=== PATIENT | female | born 1945 | race Caucasian/White ===

== ENCOUNTER → 2018-03-25 15:34 | Outpatient (CLI) | payer MEDICARE, OTHER, SELFPAY ==
--- NOTE | 2018-03-25 15:38 | VDLE_ITS ---
Reason For Study: Leg Pain RIGHT LEFT CFV is compressible, spontaneous, phasic, GSV is normal. competent and demonstrates normal CFV is compressible, spontaneous, phasic, augmentation. competent, and demonstrates normal Procedure augmentation. Exam performed in department. FV is compressible, spontaneous, phasic, Pt sent to ED per Dr. Fierro. competent and demonstrates normal A preliminary report was called and/or faxed augmentation. to Dr. Vadim Peters. POP V is compressible, spontaneous, phasic, competent and demonstrates normal augmentation. T/P Trunk is compressible. PTV is compressible. LT PerV is compressible. Lt GastrocV is dilated and partially compressible consistent with acute DVT Lt GSV in the calf is dilated and non compressible Lt Varicosities in the calf are dilated and non compressible Lt GSV is compressible in the thigh. Interpretation Summary Acute deep venous thrombosis left gastrocnemius vein. Superficial thrombophlebitis left calf great saphenous vein. Superficial thrombophlebitis left calf varicosities Normal flow patterns right common femoral vein. Ordering Physician: Emmett Fierro Referring Physician: Emmett Fierro Performed By: Angy Painter, SOREN, RVT
== END ==
PROVIDERS: Family Provider Family Medicine; PCP Family Medicine; Visit Provider Family Medicine
DX: M79.605 Pain in left leg (principal); I82.4Z2 Acute embolism and thrombosis of unspecified deep veins of left distal lower extremity
CPT/HCPCS: 93971

== ENCOUNTER 2018-03-25 16:21 | Emergency (ER) | payer MEDICARE, OTHER, SELFPAY ==
[2018-03-25 16:22] VITALS: BP 180/85; PULSE 80; RESP 16; TEMP 36.8; O2SAT 96; BMI 24.4
--- NOTE | 2018-03-25 16:47 | ED.VISSUMM ---
- ER Visit Summary Date of Service: 03/25/18 Chief Complaint: DVT left leg History of Present Illness: The patient is a 72 F who presents with DVT in her left lower leg that was noticed today. Patient states she woke up with pain in her left leg earlier this morning. Patient had an outpatient venous duplex which showed a DVT in the left gastric vein. The left greater saphenous vein is also dilated noncompressible. There is no DVT noted proximal to the gastroc vein. Patient denies any chest pain or shortness of breath. Patient denies any fevers or chills. Patient states her pain is worse with palpation. Physical Examination: Vital signs are stable except for mild hypertension of 180/85. Patient is afebrile. Patient is in no acute distress. There is tenderness over the calf on the left. There is also some mild erythema and tenderness over the medial aspect of the left leg. Pedal pulses are equal bilaterally. Heart was regular rate and rhythm. Lungs are clear and equal bilaterally. There is good respiratory effort noted. Cranial nerves II through XII are intact. There are no focal motor or sensory deficits noted. The remaining physical exam is within normal limits. Test Results: Outpatient venous duplex shows DVT in the left gastroc vein. Emergency Department Course and Treatment: Case was discussed with the patient's primary care physician, Dr. Fierro. He recommended anticoagulantion and he will follow-up with the patient on Wednesday. Patient was started on Xarelto. Patient understood and was agreeable with the plan. All questions were answered. Disposition: Discharge home Impression: DVT left gastroc vein This note was generated with Inmoo dictation software. It may contain incorrect words, spelling, and punctuation that were not noted in review of the chart prior to signing ED Disposition - Plan for ED Patient: Disposition: Home or Assisted Living Chief Complaint: Lower Extremity Injury Diagnosis: Deep vein thrombosis (DVT) of distal vein of left lower extremity Instructions: ED DVT Prescriptions: Rivaroxaban [Xarelto] 1 ea PO UD #1 [email or web address] Referrals: Emmett Fierro MD [Primary Care Provider] -
--- NOTE | 2018-03-25 16:50 | ED.DCSUM_ITS ---
- ER Visit Summary Date of Service: 03/25/18 Chief Complaint: DVT left leg History of Present Illness: The patient is a 72 F who presents with DVT in her left lower leg that was noticed today. Patient states she woke up with pain in her left leg earlier this morning. Patient had an outpatient venous duplex which showed a DVT in the left gastric vein. The left greater saphenous vein is also dilated noncompressible. There is no DVT noted proximal to the gastroc vein. Patient denies any chest pain or shortness of breath. Patient denies any fevers or chills. Patient states her pain is worse with palpation. Physical Examination: Vital signs are stable except for mild hypertension of 180 /85. Patient is afebrile. Patient is in no acute distress. There is tenderness over the calf on the left. There is also some mild erythema and tenderness over the medial aspect of the left leg. Pedal pulses are equal bilaterally. Heart was regular rate and rhythm. Lungs are clear and equal bilaterally. There is good respiratory effort noted. Cranial nerves II through XII are intact. There are no focal motor or sensory deficits noted. The remaining physical exam is within normal limits. Test Results: Outpatient venous duplex shows DVT in the left gastroc vein. Emergency Department Course and Treatment: Case was discussed with the patient' s primary care physician, Dr. Fierro. He recommended anticoagulantion and he will follow-up with the patient on Wednesday. Patient was started on Xarelto. Patient understood and was agreeable with the plan. All questions were answered. Disposition: Discharge home Impression: DVT left gastroc vein This note was generated with Anulex dictation software. It may contain incorrect words, spelling, and punctuation that were not noted in review of the chart prior to signing ED Disposition - Plan for ED Patient: Disposition: Home or Assisted Living Chief Complaint: Lower Extremity Injury Diagnosis: Deep vein thrombosis (DVT) of distal vein of left lower extremity Instructions: ED DVT Prescriptions: Rivaroxaban [Xarelto] 1 ea PO UD #1 [email or web address] Referrals: Emmett Fierro MD [Primary Care Provider] -
--- NOTE | 2018-03-25 17:10 | ED.RN ---
PT GIVEN WRITTEN INSTRUCTIONS AND HOME GOING PRESCRIPTIONS. PT VERBALIZES UNDERSTANDING. PT AMBULATORY HOME BY SELF. TO FOLLOW UP WITH DR. MONCADA.
== END 2018-03-25 18:17 | disposition home or self-care (01) ==
PROVIDERS: Emergency Provider Emergency Medicine; Family Provider Family Medicine; PCP Family Medicine
DX: I82.492 Acute embolism and thrombosis of other specified deep vein of left lower extremity (principal); I10 Essential (primary) hypertension; Z79.01 Long term (current) use of anticoagulants; Z79.899 Other long term (current) drug therapy; Z87.891 Personal history of nicotine dependence
CPT/HCPCS: 93971; 99282

== ENCOUNTER 2019-08-03 15:11 | Emergency (ER) | payer MEDICARE, OTHER, SELFPAY ==
[2019-08-03 15:12] VITALS: BP 159/107; PULSE 88; RESP 16; TEMP 36.2; O2SAT 94; BMI 22.1
[2019-08-03] MEDS: 0.9% Normal Saline 1,000 ML 1000 ML IV (15:37)
[2019-08-03] MEDS: Ondansetron 4 MG/2 ML Vial IV (15:38)
--- NOTE | 2019-08-03 15:42 | ED.DCSUM_ITS ---
History of Present Illness Chief Complaint: Nausea/Vomiting Informant: Patient Onset: Today Context: Gradual Onset Timing: Intermittent Current Severity: Moderate Maximum Severity: Moderate Narrative: The patient presents to the emergency department nausea and vomiting. Patient has a history of polymyalgia and MGUS. She has been on a prednisone course for over a year. She is currently on a taper. She also has started methotrexate just over a month ago. The patient had influenza and pneumococcal vaccine yesterday. She states she began to have some chills and was just feeling unwell. She began to get nauseated and had a few bouts of vomiting. She does not think she had a fever. She denies any urinary symptoms. She is moving her bowels without issue. She is had no abdominal pain. She is otherwise been in her normal state of health. Prior similar symptoms: No Recent Illness/Hospitalization: No Past Medical History - Allergies and Home Meds Allergies/Adverse Reactions: Allergies Penicillins Allergy (Verified 08/03/19 15:12) Swelling Primary Care Physician: Emmett Fierro MD [Primary Care Provider] - Prior records reviewed: Yes Past Medical History: - Surgical History: hysterectomy Lives: With Family Smoking Status: Former smoker Review of Systems General: Reports: Chills, Malaise Eyes: Denies: Visual changes - bilaterally, Diplopia ENT: Denies: Rhinorrhea, Sore throat Cardiovascular: Denies: Chest pain, Palpitations Respiratory: Denies: Dyspnea, Cough, Dyspnea on exertion Gastrointestinal: Reports: Nausea, Vomiting Genitourinary: Denies: Dysuria, Hematuria, Frequency Musculoskeletal: Denies: Back pain, Extremity Pain Skin: Denies: Rash, Wounds Neurological: Denies: Headache, Weakness, Numbness Physical Exam Vital Signs/Narrative: Vital Signs Temp Pulse Resp BP Pulse Ox 08/03/19 15:12 97.1 F L 88 16 159/107 H 94 Inital Vital Signs reviewed: Yes General: Well nourished, Well developed, No Acute Distress Head: Normocephalic, Atraumatic Eyes: Perrl, EOMI ENT: Moist mucous membranes, No rhinorrhea Neck: Supple, Nontender Cardiovascular: Regular rate, Regular rhythm, No murmurs Respiratory: No distress, CTA bilaterally, Chest nontender Abdomen: Soft, Nontender, Nondistended, Normal bowel sounds Back: Nontender, Normal Inspection Extremities: Nontender, No edema Skin: Normal color, No rash Neurological: Alert, Oriented x3, Cranial nerves II-XII grossly intact, Normal Strength, Normal Sensation Psychological: Normal affect, Normal Mood Diagnostic/Tx/Re-eval Abnormal Lab Results 08/03/19 08/03/19 08/03/19 15:20 15:30 15:30 WBC 9.2 RBC 4.63 Hgb 14.1 Hct 43.5 MCV 94.0 MCH 30.5 MCHC 32.4 RDW Std Deviation 50.0 H RDW Coeff of Vahid 14.6 Plt Count 294 MPV 9.4 Immature Gran % (Auto) 0.500 Neut % (Auto) 78.5 H Lymph % (Auto) 12.9 L Blair % (Auto) 6.9 Eos % (Auto) 0.9 Baso % (Auto) 0.3 Absolute Neuts (auto) 7.2 Absolute Lymphs (auto) 1.18 Nucleated RBC % 0 PT 22.0 H INR 1.9 Sodium Potassium Chloride Carbon Dioxide Anion Gap BUN Creatinine Estim Creat Clear Calc Est GFR (MDRD) Af Amer Est GFR (MDRD) Non-Af BUN/Creatinine Ratio Glucose Calcium Total Bilirubin AST ALT Alkaline Phosphatase Total Protein Albumin Globulin Albumin/Globulin Ratio Urine Color Yellow Urine Clarity Clear Urine pH 7.0 Ur Specific [place] 1.010 Urine Protein 15 H Urine Glucose (UA) Normal Urine Ketones 5 H Urine Occult Blood 25 H Urine Nitrite Negative Urine Bilirubin Negative Urine Urobilinogen Normal Ur Leukocyte Esterase Negative Urine RBC 0-5 SEEN Urine WBC 0 SEEN Ur Squamous Epith Cells 0-5 SEEN Amorphous Sediment 1+ URATE Urine Bacteria 0 SEEN Urine Mucus 2+ 08/03/19 15:30 WBC RBC Hgb Hct MCV MCH MCHC RDW Std Deviation RDW Coeff of Vahid Plt Count MPV Immature Gran % (Auto) Neut % (Auto) Lymph % (Auto) Blair % (Auto) Eos % (Auto) Baso % (Auto) Absolute Neuts (auto) Absolute Lymphs (auto) Nucleated RBC % PT INR Sodium 138 Potassium 3.9 Chloride 103 Carbon Dioxide 26.0 Anion Gap 9 BUN 12 Creatinine 0.68 Estim Creat Clear Calc 46.20 Est GFR (MDRD) Af Amer 109 Est GFR (MDRD) Non-Af 90 BUN/Creatinine Ratio 17.7 Glucose 119 H Calcium 9.4 Total Bilirubin 0.60 AST 26 ALT 30 Alkaline Phosphatase 79 Total Protein 7.8 Albumin 3.3 Globulin 4.5 H Albumin/Globulin Ratio 0.7 L Urine Color Urine Clarity Urine pH Ur Specific [place] Urine Protein Urine Glucose (UA) Urine Ketones Urine Occult Blood Urine Nitrite Urine Bilirubin Urine Urobilinogen Ur Leukocyte Esterase Urine RBC Urine WBC Ur Squamous Epith Cells Amorphous Sediment Urine Bacteria Urine Mucus - Medical Decision Making Clinically, I do feel that this is likely reaction to the patient's vaccinations. She is afebrile. She is very well-appearing. IV was established. Screening labs were obtained. She is on prednisone, I did want to rule out any electrolyte abnormality. Labs are unremarkable. Urine shows no infection. She had little improvement with Zofran. She was given Phenergan and was feeling markedly improved. Again, her exam is comforting. Her work-up is within normal limits. I do feel the patient is safe for outpatient therapy. She was counseled on concerning symptoms and reasons to return. She will be discharged home. Impression 1. Nausea and vomiting 2. Reaction to vaccination ED Disposition - Plan for ED Patient: Instructions: VOMITING (5y-Adult) Prescriptions: proMETHazine tablet [Phenergan] 12.5 mg PO Q6H PRN PRN #10 tab PRN Reason: Nausea Prescription Printed Referrals: Emmett Fierro MD [Primary Care Provider] -
[2019-08-03 15:43] LABS: Bacteria 0 SEEN /hpf (None Seen); White Blood Cells 0 SEEN /hpf (0-5)
[2019-08-03 15:48] LABS: Absolute Lymphocyte Count 1.18 X10^3/uL (0.83-4.51); Absolute Neutrophil Count 7.2 X10^3/uL (2.0-7.7); Basophil# 0.03 X10^3/uL; Basophil% 0.3 % (0-1); Eosinophil# 0.08 X10^3/uL; Eosinophils% 0.9 % (0-5); Hematocrit 43.5 % (37-47); Hemoglobin 14.1 g/dL (12.0-15.0); Lymphocyte # 1.18 X10^3/ul (4.0); Lymphocyte % 12.9 % (19-41); Mean Corp Hgb Conc 32.4 g/dL (32-36); Mean Corpuscular Hgb 30.5 pg (27.0-32.0); Mean Platelet Vol. 9.4 fl (6.2-12.0); Monocyte# 0.63 X10^3/uL; Monocyte% 6.9 % (0-10); NRBC Flagged by Analyzer 0 % (0-5); Neutrophil % 78.5 % (47-70); Platelet Count 294 K/mm3 (150-450); RBC Distribution Width CV 14.6 % (11.6-14.6); Red Blood Count 4.63 M/mm3 (4.2-5.4); White Blood Count 9.2 K/mm3 (4.4-11.0)
[2019-08-03 15:51] LABS: Color, Urine Yellow (Yellow); Glucose, Dipstick Normal (Normal); Ketone-Dipstick 5 mg/dl (Negative); Leukocyte Esterase-Dipstick Negative /ul (Negative); Nitrite-Dipstick Negative (Negative); Occult Blood-Urine 25 /ul (Negative); Protein-Dipstick 15 mg/dl (Negative); Urine Bilirubin Dipstick Negative (Negative); Urine Clarity Clear (Clear); Urine Urobilinogen Normal (Normal)
[2019-08-03 16:03] LABS: International Normalized Ratio 1.9
[2019-08-03 16:07] LABS: ALB/GLOB Ratio 0.7 RATIO (0.9-2.4); AST(SGOT) 26 U/L (15-37); Alanine Aminotransfer ALT/SGPT 30 U/L (13-56); Albumin, Serum 3.3 g/dL (3.2-5.0); Alkaline Phosphatase 79 U/L (45-117); Anion Gap 9 (5-15); BUN 12 mg/dL (7-18); BUN/Creat Ratio 17.7 RATIO (10-20); Calcium,Total 9.4 mg/dL (8.5-10.1); Chloride 103 mmol/L (98-107); Creatinine, Serum 0.68 mg/dL (0.55-1.02); EST Glomerular Filtration Rate 90 mL/min (>60); Est Glom Filt Rate - Afr Amer 109 mL/min (>60); Globulin 4.5 g/dL (2.2-4.2); Glucose 119 mg/dL (74-106); Potassium 3.9 mmol/L (3.5-5.1); Protein, Total 7.8 g/dL (6.4-8.2); Sodium Level 138 mmol/L (136-145)
[2019-08-03] MEDS: proMETHazine 25 MG/ML Syringe 6.25 MG IV (16:16)
[2019-08-03 16:26] LABS: Amorphous Sediment 1+ URATE; Mucous, Urine 2+ /hpf (<or=2+); Red Blood Cells-Urine 0-5 SEEN /hpf (0-5); Squamous Epithelial Cells - UA 0-5 SEEN /hpf (5-10)
[2019-08-03 16:53] VITALS: BP 163/80; PULSE 83; RESP 16; O2SAT 98
== END 2019-08-03 16:54 | disposition home or self-care (01) ==
LOC: ED 15:44
PROVIDERS: Emergency Provider Emergency Medicine; Family Provider Family Medicine; PCP Family Medicine
DX: T88.1XXA Other complications following immunization, not elsewhere classified, initial encounter (principal); R11.2 Nausea with vomiting, unspecified; M35.3 Polymyalgia rheumatica; D47.2 Monoclonal gammopathy; Z88.0 Allergy status to penicillin; Z79.01 Long term (current) use of anticoagulants; Z79.899 Other long term (current) drug therapy; Z87.891 Personal history of nicotine dependence; Z90.710 Acquired absence of both cervix and uterus
CPT/HCPCS: 80053; 81001; 85025; 85610; 96361; 96374; 96375; 99284; J7030; A4216; J2405

== ENCOUNTER 2022-08-17 17:36 | Emergency (ER) | payer MEDICARE, OTHER, SELFPAY ==
[2022-08-17 17:38] VITALS: BP 184/96; PULSE 94; RESP 18; TEMP 36.3; O2SAT 99; BMI 20.7
--- NOTE | 2022-08-17 20:03 | EDS_ITS ---
HPI HPI - GI History of Present Illness Chief Complaint: GI Bleed Detail of Chief Complaint: Bright red blood per rectum. 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 INR 3.6. Patient denies bleeding gums, hematuria, bruising easily. She states goal is INR of 2.5. She denies orthostatic symptoms. She has no other complaints. There is no history of diverticulosis or lower GI bleed. Prior similar symptoms: Yes Recent Illness/Hospitalization: No PFSH PFSH Home Medications calcium carbonate 600 mg calcium (1,500 mg) tablet (Caltrate 600) 600 mg PO DAILY 10/25/13 [History Last Taken Unknown] cholecalciferol (vitamin D3) 25 mcg (1,000 unit) capsule (Vitamin D3) 1,000 unit PO DAILY 10/25/13 [History Last Taken Unknown] kdufxqkm-bpb-wjlcz acid 0.4 mg-lycopene 300 mcg-lutein 250 mcg tablet (Centrum Silver) 1 ea PO DAILY 10/25/13 [History Last Taken Unknown] magnesium oxide 500 mg capsule 500 mg PO DAILY 09/10/17 [History Last Taken Unknown] folic acid 1 mg tablet 1 mg PO DAILY 08/03/19 [History Last Taken Unknown] methotrexate sodium 2.5 mg tablet 10 mg PO QWEEK 08/03/19 [History Last Taken Unknown] prednisone 5 mg tablet 5 mg PO DAILY 08/03/19 [History Last Taken Unknown] promethazine 25 mg tablet 12.5 mg PO Q6H PRN PRN Nausea #10 tabs 08/03/19 [Rx Last Taken Unknown] warfarin 5 mg tablet 10 mg PO SUTUTHSA 08/03/19 [History Last Taken Unknown] warfarin 7.5 mg tablet 7.5 mg PO MOWEFR 08/03/19 [History Last Taken Unknown] Allergy/AdvReac Type Severity Reaction Status Date / Time Penicillins Allergy Swelling Verified 08/17/22 17:37 Social History (Updated 08/17/22 @ 20:[address] Wesley Garcia MD) household members: none Smoking Status: Never smoker ROS ROS ED Constitutional Constitutional ED: Denies chills, fever(s), subjective, sweats or weight loss Cardiovascular Cardiovascular: Denies chest pain or palpitations Respiratory/Chest Respiratory/Chest: Denies cough, dyspnea or dyspnea on exertion Gastrointestinal Gastrointestinal: Denies abdominal pain, constipation, diarrhea, melena, nausea or vomiting Genitourinary Genitourinary ED: Denies hematuria Hematologic/Lymphatic Hematologic/Lymphatic: Denies easy bleeding, easy bruising or lymphadenopathy EXAM Physical Exam Const Vital Signs: 08/17/22 17:38 Temperature 97.4 F L Temperature Source Temporal Pulse Rate 94 Respiratory Rate 18 Blood Pressure 184/96 H Blood Pressure Mean 125 Pulse Ox 99 Oxygen Delivery Method Room Air Positive well nourished and well developed General Appearance ED: well developed and NAD; Negative for pallor HEENT Reports moist mucous membranes HEENT Narrative: Head is atraumatic normocephalic. Ears normal. Nares patent. Uvula midline. Eyes PERRL and EOMs intact bilaterally General Eye ED: Negative for pale conjunctiva or scleral icterus Neck no lymphadenopathy, supple and no JVD Resp normal respiratory effort and clear to auscultation bilaterally Cardio regular rate, regular rhythm, S1 normal heart sound and S2 normal heart sound GI non-tender, non-distended and no masses GI Narrative: Patient has external hemorrhoids on visualization of the anus. Anoscopy was performed and reveals bleeding from hemorrhoids. Rectal mucosa appears normal. Stool is brown. Extremity full ROM Neuro CN's II-XII intact bilaterally and moves all extremities Sensorium / Orientation: alert Psych mental status grossly normal and thought process normal Skin no wounds General Skin Exam: Negative for jaundice or pallor MDM MDM MDM Narrative Medical decision making narrative: With history of bright red blood we will perform anoscopy determine if this is due to hemorrhoids versus lower GI bleed. Anoscopy reveals hemorrhoidal blee ding. Patient was instructed to hold her next 2 doses of Coumadin. Discharge Plan Triage Chief Complaint: GI Bleed ED Provider: Wesley Garcia Dx/Rx/DC Orders Instructions: Rectal Bleeding Tx Prescriptions: No Action calcium carbonate [Caltrate 600] 600 MG tablet 600 mg PO DAILY cholecalciferol (vitamin D3) [Vitamin D3] 1,000 UNIT capsule 1,000 unit PO DAILY zoatbfyh-iio-CH-lycopen-lutein [Centrum Silver] 1 EACH tablet 1 ea PO DAILY magnesium oxide 500 MG capsule 500 mg PO DAILY warfarin 7.5 MG tablet 7.5 mg PO MOWEFR methotrexate sodium 2.5 tablet 10 mg PO QWEEK warfarin 5 MG tablet 10 mg PO SUTUTHSA prednisone 5 tablet 5 mg PO DAILY folic acid 1 MG tablet 1 mg PO DAILY Label Comments: TAKE 1 TABLET BY MOUTH ONCE DAILY FOR 90 DAYS promethazine 25 MG tablet 12.5 mg PO Q6H PRN PRN (Reason: Nausea) Qty: 10 0RF Primary Care Provider: Emmett Fierro Referrals: Emmett Fierro MD [Primary Care Provider] - 1 Week if not improving Activity Restrictions/Additional Instructions: 1. Hold your next 2 doses of Coumadin 2. Contact your doctor regarding altering the dose since your INR is slightly elevated at 3.6. 3. You may take either Metamucil or MiraLAX 1-2 times a day to help with constipation. 3. If you develop lightheadedness, passing large clots return to the emergency department Disposition Disposition: Home, Self Care
[2022-08-17 20:22] VITALS: PULSE 76; RESP 18; O2SAT 97
== END 2022-08-17 20:23 | disposition home or self-care (01) ==
PROVIDERS: Emergency Provider Emergency Medicine; PCP Family Medicine; Visit Provider Emergency Medicine
DX: K64.4 Residual hemorrhoidal skin tags (principal); Z79.01 Long term (current) use of anticoagulants; Z79.899 Other long term (current) drug therapy; Z86.718 Personal history of other venous thrombosis and embolism; Z87.19 Personal history of other diseases of the digestive system
CPT/HCPCS: 46600; 99283

== ENCOUNTER 2022-11-01 08:53 | Emergency (ER) | payer MEDICARE, OTHER, SELFPAY ==
[2022-11-01 08:56] VITALS: BP 188/95; PULSE 79; RESP 16; TEMP 36.5; O2SAT 98; BMI 21.7
--- NOTE | 2022-11-01 10:09 | EX.ED.DYSGE1 ---
HPI History of Present Illness Chief Complaint: Nausea/Vomiting Informant: patient and spouse/S.O. Narrative Narrative: [id number] female presenting to the emergency room with a chief complaint of nausea and vomiting. Patient states that episodes every 2 years about this time she comes to the emergency room with vomiting. She denies any diarrhea or fever. She states they typically hydrate her and give her something for nausea which helps. She denies any body aches or any other symptoms. PFSH PFSH Home Medications calcium carbonate 600 mg calcium (1,500 mg) tablet (Caltrate 600) 600 mg PO DAILY 10/25/13 [History Last Taken Unknown] cholecalciferol (vitamin D3) 25 mcg (1,000 unit) capsule (Vitamin D3) 1,000 unit PO DAILY 10/25/13 [History Last Taken Unknown] igruukre-mks-gushl acid 0.4 mg-lycopene 300 mcg-lutein 250 mcg tablet (Centrum Silver) 1 ea PO DAILY 10/25/13 [History Last Taken Unknown] magnesium oxide 500 mg capsule 500 mg PO DAILY 09/10/17 [History Last Taken Unknown] folic acid 1 mg tablet 1 mg PO DAILY 08/03/19 [History Last Taken Unknown] methotrexate sodium 2.5 mg tablet 10 mg PO QWEEK 08/03/19 [History Last Taken Unknown] prednisone 5 mg tablet 5 mg PO DAILY 08/03/19 [History Last Taken Unknown] promethazine 25 mg tablet 12.5 mg PO Q6H PRN PRN Nausea #10 tabs 08/03/19 [Rx Last Taken Unknown] warfarin 5 mg tablet 10 mg PO SUTUTHSA 08/03/19 [History Last Taken Unknown] warfarin 7.5 mg tablet 7.5 mg PO MOWEFR 08/03/19 [History Last Taken Unknown] Allergy/AdvReac Type Severity Reaction Status Date / Time Penicillins Allergy Swelling Verified 11/01/22 08:56 Social History household members: none Smoking Status: Never smoker EXAM Physical Exam Const Vital Signs: 11/01/22 08:56 Temperature 97.7 F L Temperature Source Temporal Pulse Rate 79 Respiratory Rate 16 Blood Pressure 188/95 H Blood Pressure Mean 126 Pulse Ox 98 Oxygen Delivery Method Room Air Positive well nourished and well developed General Appearance ED: well developed HEENT Reports normocephalic, head/scalp atraumatic and moist mucous membranes Eyes PERRL and EOMs intact bilaterally Neck no lymphadenopathy, supple and no JVD Resp normal respiratory effort and clear to auscultation bilaterally Cardio regular rate, regular rhythm and no murmurs GI normal to inspection, nondistended, normoactive bowel sounds and non-tender Palpation: soft Back/Spine no CVA tenderness and normal ROM Extremity normal to inspection General Extremety ED: Negative for edema General Extremity: Negative for edema Neuro oriented x3 and CN's II-XII intact bilaterally Sensorium / Orientation: alert Motor Exam: strength 5/5 throughout Psych mental status grossly normal Mood & Affect: Negative for depressed or tearful Skin no rashes or lesions noted and no wounds MDM MDM MDM Narrative Medical decision making narrative: CBC was normal. CMP showed a glucose of 127. CO2 of 27 anion gap of 6 BUN of 12. Creatinine is normal. She received IV fluids and Zofran repeat examination finds the patient to be doing significantly better. She has had a liter of fluids I will write for her to have Zofran at home. Lab Data Attestation: I reviewed the patient's lab results. Labs: Laboratory Results - last 24 hr 11/01/22 11/01/22 09:15 09:15 WBC 8.4 RBC 4.57 Hgb 14.0 Hct 42.4 MCV 92.8 MCH 30.6 MCHC 33.0 RDW Std Deviation 49.0 H RDW Coeff of Vahid 14.4 Plt Count 284 MPV 10.8 Immature Gran % (Auto) 0.500 Neut % (Auto) 81.0 H Lymph % (Auto) 9.5 L [place] % (Auto) 8.3 Eos % (Auto) 0.1 Baso % (Auto) 0.6 Absolute Neuts (auto) 6.8 Absolute Lymphs (auto) 0.80 L Nucleated RBC % 0 Sodium 138 Potassium 3.7 Chloride 105 Carbon Dioxide 27.0 Anion Gap 6 BUN 12 Creatinine 0.63 Estim Creat Clear Calc 43.40 Est GFR (MDRD) Af Amer 117 Est GFR (MDRD) Non-Af 96 BUN/Creatinine Ratio 18.9 Glucose 127 H Calcium 9.6 Total Bilirubin 0.40 AST 26 ALT 26 Alkaline Phosphatase 90 Total Protein 7.9 Albumin 3.6 Globulin 4.3 H Albumin/Globulin Ratio 0.8 L Discharge Plan Triage Chief Complaint: Nausea/Vomiting ED Provider: Tigre Orosco Dx/Rx/DC Orders Prescriptions: No Action calcium carbonate [Caltrate 600] 600 MG tablet 600 mg PO DAILY cholecalciferol (vitamin D3) [Vitamin D3] 1,000 UNIT capsule 1,000 unit PO DAILY zpiscsfr-scz-MB-lycopen-lutein [Centrum Silver] 1 EACH tablet 1 ea PO DAILY magnesium oxide 500 MG capsule 500 mg PO DAILY warfarin 7.5 MG tablet 7.5 mg PO MOWEFR methotrexate sodium 2.5 tablet 10 mg PO QWEEK warfarin 5 MG tablet 10 mg PO SUTUTHSA prednisone 5 tablet 5 mg PO DAILY folic acid 1 MG tablet 1 mg PO DAILY Label Comments: TAKE 1 TABLET BY MOUTH ONCE DAILY FOR 90 DAYS promethazine 25 MG tablet 12.5 mg PO Q6H PRN PRN (Reason: Nausea) Qty: 10 0RF Primary Care Provider: Emmett Fierro Referrals: Emmett Fierro MD [Primary Care Provider] -
[2022-11-01 10:16] LABS: Absolute Neutrophil Count 6.8 X10^3/uL (2.0-7.7); Basophil# 0.05 X10^3/uL; Basophil% 0.6 % (0-1); Eosinophil# 0.01 X10^3/uL; Eosinophils% 0.1 % (0-5); Hematocrit 42.4 % (37-47); Lymphocyte % 9.5 % (19-41); Mean Corpuscular Hgb 30.6 pg (27.0-32.0); Mean Corpuscular Volume 92.8 fL (81-99); Mean Platelet Vol. 10.8 fl (6.2-12.0); Monocyte% 8.3 % (0-10); NRBC Flagged by Analyzer 0 % (0-5); Neutrophil # 6.84 X10^3/uL (2.7-7.7); Platelet Count 284 K/mm3 (150-450); RBC Distribution Width CV 14.4 % (11.6-14.6); Red Blood Count 4.57 M/mm3 (4.2-5.4); White Blood Count 8.4 K/mm3 (4.4-11.0)
[2022-11-01] MEDS: 0.9% Normal Saline 1,000 ML 1000 ML IV (10:17)
[2022-11-01] MEDS: Ondansetron 4 MG/2 ML Vial IV (10:18)
[2022-11-01 10:32] LABS: ALB/GLOB Ratio 0.8 RATIO (0.9-2.4); AST(SGOT) 26 U/L (15-37); Alanine Aminotransfer ALT/SGPT 26 U/L (13-56); Albumin, Serum 3.6 g/dL (3.2-5.0); Alkaline Phosphatase 90 U/L (45-117); Anion Gap 6 (5-15); BUN 12 mg/dL (7-18); BUN/Creat Ratio 18.9 RATIO (10-20); Calcium,Total 9.6 mg/dL (8.5-10.1); Chloride 105 mmol/L (98-107); Creatinine, Serum 0.63 mg/dL (0.55-1.02); EST Glomerular Filtration Rate 96 mL/min (>60); Est Glom Filt Rate - Afr Amer 117 mL/min (>60); Globulin 4.3 g/dL (2.2-4.2); Glucose 127 mg/dL (74-106); Potassium 3.7 mmol/L (3.5-5.1); Protein, Total 7.9 g/dL (6.4-8.2); Sodium Level 138 mmol/L (136-145)
== END 2022-11-01 12:24 | disposition home or self-care (01) ==
PROVIDERS: Emergency Provider Emergency Medicine; PCP Family Medicine; Visit Provider Emergency Medicine
DX: R11.2 Nausea with vomiting, unspecified (principal)
CPT/HCPCS: 80053; 85025; 96360; 99283; J7030; A4216; J2405

== ENCOUNTER 2024-01-22 08:17 | Emergency (ER) | payer MEDICARE, SELFPAY ==
[2024-01-22 08:19] VITALS: BP 195/95; PULSE 101; RESP 16; TEMP 36.3; O2SAT 99; BMI 21.2
--- NOTE | 2024-01-22 08:35 | RAD_ITS ---
STUDY: X-RAY CHEST REASON FOR EXAM: Female, 78 years old. Coronary artery disease. TECHNIQUE: Single frontal view of the chest. COMPARISON: 10/25/2013 FINDINGS: Stable hyperinflation. Scattered healed parenchymal granulomatous calcifications, unaltered. There is no demonstrated pleural abnormality. Cardiomegaly unchanged. Normal mediastinum and todd. Normal visualized pulmonary arteries. Aortic tortuosity with calcification unchanged. Normal visualized thoracic spine. Normal visualized ribs, clavicles, and shoulders. No abnormality of the visualized soft tissue structures of the upper abdomen. RAD/Chest 1 View (Portable) IMPRESSION: Stable chest with no acute superimposed finding. Electronically Signed: Mahamed Tate MD at 9:26 EST ,
--- NOTE | 2024-01-22 08:37 | EKG12_ITS ---
Test Reason : Blood Pressure : / mmHG Vent. Rate : 072 BPM Atrial Rate : 072 BPM P-R Int : 156 ms QRS Dur : 082 ms QT Int : 396 ms P-R-T Axes : 035 071 043 degrees QTc Int : 433 ms Normal sinus rhythm Normal ECG Confirmed by HERNANDEZ CHURCHILL, INDU ([id number]), editorial clerk KIMBERLEY DOMINGUEZ ([id number]) on 01/24/2024 9:46:49 AM Referred By: RODNEY Confirmed By:INDU NG MD
[2024-01-22 08:50] LABS: Absolute Lymphocyte Count 1.63 X10^3/uL (0.83-4.51); Absolute Neutrophil Count 6.8 X10^3/uL (2.0-7.7); Basophil# 0.08 X10^3/uL; Basophil% 0.8 % (0-1); Eosinophil# 0.04 X10^3/uL; Eosinophils% 0.4 % (0-5); Hematocrit 45.2 % (37-47); Hemoglobin 14.5 g/dL (12.0-15.0); Lymphocyte # 1.63 X10^3/ul (0.83-4.51); Lymphocyte % 16.9 % (19-41); Mean Corp Hgb Conc 32.1 g/dL (32-36); Mean Corpuscular Volume 93.4 fL (81-99); Mean Platelet Vol. 9.9 fl (6.2-12.0); Monocyte# 1.09 X10^3/uL; Monocyte% 11.3 % (0-10); NRBC Flagged by Analyzer 0 % (0-5); Neutrophil # 6.77 X10^3/uL (2.7-7.7); Neutrophil % 70.2 % (47-70); Platelet Count 301 K/mm3 (150-450); RBC Distribution Width CV 14.4 % (11.6-14.6); RBC Distribution Width SD 49.9 fl (35.1-43.9); Red Blood Count 4.84 M/mm3 (4.2-5.4); White Blood Count 9.7 K/mm3 (4.4-11.0)
[2024-01-22 08:58] VITALS: BP 157/81; PULSE 77; RESP 19; TEMP 36.3; O2SAT 97
[2024-01-22 09:01] VITALS: BP 147/67
[2024-01-22 09:07] LABS: Mucous, Urine 0 SEEN /hpf (<or=2+); Squamous Epithelial Cells - UA 0 SEEN /hpf (5-10); White Blood Cells 0 SEEN /hpf (0-5)
[2024-01-22 09:09] LABS: Color, Urine Yellow (Yellow); Glucose, Dipstick Normal (Normal); Ketone-Dipstick 5 mg/dl (Negative); Leukocyte Esterase-Dipstick Negative /ul (Negative); Nitrite-Dipstick Negative (Negative); Occult Blood-Urine 50 /ul (Negative); Protein-Dipstick 15 mg/dl (Negative); Urine Bilirubin Dipstick Negative (Negative); Urine Clarity Sl. Cloudy (Clear); Urine Urobilinogen Normal (Normal)
[2024-01-22 09:10] LABS: ALB/GLOB Ratio 0.8 RATIO (0.9-2.4); AST(SGOT) 28 U/L (15-37); Alanine Aminotransfer ALT/SGPT 29 U/L (13-56); Albumin, Serum 3.8 g/dL (3.2-5.0); Alkaline Phosphatase 100 U/L (45-117); Anion Gap 5 (5-15); BUN 19 mg/dL (7-18); BUN/Creat Ratio 19.2 RATIO (10-20); Chloride 103 mmol/L (98-107); Creatinine, Serum 0.99 mg/dL (0.55-1.02); EST Glomerular Filtration Rate 57 mL/min (>60); Est Glom Filt Rate - Afr Amer 69 mL/min (>60); Estimated Creatinine Clearance 43.14 ml/min; Globulin 4.5 g/dL (2.2-4.2); Glucose 203 mg/dL (74-106); Potassium 4.2 mmol/L (3.5-5.1); Protein, Total 8.3 g/dL (6.4-8.2); Sodium Level 136 mmol/L (136-145); Troponin-I HS (w/2H Reflex) 6 pg/mL (3.0-54.0)
[2024-01-22 09:15] LABS: Bacteria 1+ /hpf (None Seen); Red Blood Cells-Urine 0-5 SEEN /hpf (0-5)
--- OUTSIDE RECORDS SUMMARY | 2024-01-22 10:03 | XMS RPT_ITS | CCD ---
Author Name Unknown Address [address] [place] [address] Organization [facility] Care Team Providers Care Car Repair Supervisor Name Role Phone Leilani Ferguson PA-C Primary Care Provider Leilani FERGUSON GERARDO Primary Care Unavailable FERGUSON, M GERARDO Referring Unavailable FERGUSON, M GERARDO Primary Care Unavailable PODLOGARRUSTY Attending Unavailable FERGUSON, M GERARDO Primary Care Unavailable FERGUSON, M GERARDO Primary Care Unavailable FERGUSON, M GERARDO Referring Unavailable FERGUSON, M GERARDO Primary Care Unavailable FERGUSON, M GERARDO Primary Care Unavailable FERGUSON, M GERARDO Primary Care Unavailable FERGUSON, M GERARDO Primary Care Unavailable HAAGEN, MORENA Referring Unavailable FERGUSON, M GERARDO Primary Care Unavailable ISHAGENJIMY Referring Unavailable PODLOGARRUSTY Attending Unavailable FERGUSON, M GERARDO Primary Care Unavailable FERGUSON, M GERARDO Primary Care Unavailable FERGUSON, M GERARDO Primary Care Unavailable FERGUSON, M GERARDO Primary Care Unavailable HAAGEN, MORENA Attending Unavailable FERGUSON, M GERARDO Primary Care Unavailable FERGUSON, M GERARDO Primary Care Unavailable FERGUSON, M GERARDO Primary Care Unavailable SARWAT DEE Referring Unavailable FERGUSON, M GERARDO Primary Care Unavailable FERGUSON, M GERARDO Primary Care Unavailable FERGUSON, M GERARDO Primary Care Unavailable DAMARIS FIERRO Referring Unavailable TIMOTHY PALMER Attending Unavailable FERGUSON, M GERARDO Primary Care Unavailable FERGUSON, M GERARDO Primary Care Unavailable SARWAT DEE Attending Unavailable FERGUSON, M GERARDO Primary Care Unavailable FERGUSON, M GERARDO Primary Care Unavailable FERGUSON, M GERARDO Primary Care Unavailable FERGUSON, M GERARDO Primary Care Unavailable FERGUSON, M GERARDO Primary Care Unavailable FERGUSON, M GERARDO Primary Care Unavailable FERGUSON, M GERARDO Attending Unavailable FERGUSON, M GERARDO Primary Care Unavailable FERGUSON, M GERARDO Primary Care Unavailable HAMORENA VALENTE Referring Unavailable Leilani FERGUSON Primary Care Unavailable Leilani FERGUSON Primary Care Unavailable Leilani FERGUSON Primary Care Unavailable Leilani FERGUSON Primary Care Unavailable Allergies Allergy Classification Reported Allergen(s) Allergy Type Date of Onset Reaction(s) Facility (4 sources) Penicillins; Translations: [PENICILLINS] Drug Allergy 02-09-2008 Itching [facility] (20 sources) Penicillins Drug Allergy 02-09-2008 Itching [facility] Medications Current Medications Medication Drug Class(es) Dates Sig (Normalized) Sig (Original) betamethasone 0.5 mg/ml / clotrimazole 10 mg/ml topical cream (5 sources) Azole Antifungal, Corticosteroid Start: 01-03-2024 End: 01-17-2024 clotrimazole-bet amethasone (LOTRISONE) cream Indications: Skin irritation Apply to affected area two times a day for 14 days. 30 g 0 01/03/2024 01/17/2024 Active Completed/Discontinued Medications Medication Drug Class(es) Dates Sig (Normalized) Sig (Original) alendronic acid 70 mg oral tablet (2 sources) Bisphosphonate End: 03-16-2022 take 70 mg by mouth every week alendronate sodium (FOSAMAX ORAL) Take 70 mg by mouth once each week. 0 03/16/2022 Discontinued Problems Active Problems Problem Classification Problem Date Documented Da te Episodic/Chronic Diabetes mellitus without complication (4 sources) Hyperglycemia; Translations: [Hyperglycemia, unspecified] Onset: 01-03-2024 Episodic Disorders of lipid metabolism (3 sources) Mixed hyperlipidemia; Translations: [Mixed hyperlipidemia] Onset: 01-03-2024 Chronic Essential hypertension (4 sources) Essential hypertension; Translations: [Essential (primary) hypertension] Onset: 01-03-2024 01-03-2024 Chronic Gastrointestinal hemorrhage (1 source) Rectal hemorrhage; Translations: [Hemorrhage of anus and rectum] Episodic Heart valve disorders (4 sources) Nonrheumatic aortic (valve) stenosis; Translations: [Aortic valve disorders] Onset: 01-17-2024 01-13-2024 Chronic Heart valve disorders (2 sources) Heart murmur; Translations: [Cardiac murmur, unspecified] Onset: 01-13-2024 01-03-2024 Episodic Hemorrhoids (2 sources) Thrombosed hemorrhoids; Translations: [Perianal venous thrombosis] Episodic Mycoses (3 sources) Anal candidiasis; Translations: [Other sites of candidiasis] Episodic Neoplasms of unspecified nature or uncertain behavior (20 sources) IgM monoclonal gammopathy of uncertain significance; Translations: [Monoclonal gammopathy] Onset: 07-05-2013 08-18-2021 Chronic Non-Hodgkin`s lymphoma (20 sources) Macroglobulinemia; Translations: [Waldenstrom macroglobulinemia] Onset: 07-09-2008 07-09-2008 Chronic Other aftercare (2 sources) Long-term current use of anticoagulant; Translations: [long term care phlebotomist (current) use of anticoagulants] 06-30-2023 Episodic Other aftercare (2 sources) [facility] (current) use of anticoagulants; Translations: [Chronic anticoagulation] Onset: 07-01-2023 Episodic Other bone disease and musculoskeletal deformities (1 source) Disorder of bone; Translations: [Other specified disorders of bone density and structure, other site] Episodic Other bone disease and musculoskeletal deformities (1 source) Disorder of skeletal system; Translations: [Disorder of bone, unspecified] 06-30-2023 Episodic Other circulatory disease (1 source) Fibromuscular dysplasia of wall of artery; 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] 01-13-2024 Chronic Other circulatory disease (2 sources) Carotid bruit; Translations: [Other specified symptoms and signs involving the circulatory and respiratory systems] 01-03-2024 Episodic Other circulatory disease (1 source) Other specified symptoms and signs involving the circulatory and respiratory systems; Translations: [Bruit of right carotid artery] Onset: 01-07-2024 Episodic Other connective tissue disease (20 sources) Polymyalgia rheumatica; Translations: [Polymyalgia rheumatica] Onset: 08-28-2019 08-28-2019 Chronic Other connective tissue disease (1 source) Polymyalgia rheumatica; Translations: [PMR (polymyalgia rheumatica) ([facility])] Onset: 08-28-2019 Chronic Other female genital disorders (1 source) Pruritus of vagina; Translations: [Other specified noninflammatory disorders of vagina] 10-25-2023 Episodic Other non-traumatic joint disorders (1 source) Polyarthropathy; Translations: [Polyarthritis, unspecified] 06-30-2023 Chronic Other non-traumatic joint disorders (1 source) Polyarthritis, unspecified; Translations: [Polyarthritis] Onset: 07-01-2023 Chronic Other skin disorders (1 source) Eruption; Translations: [Rash and other nonspecific skin eruption] 10-09-2023 Episodic Other skin disorders (1 source) Skin irritation ; Translations: [Other skin changes] 01-03-2024 Episodic Residual codes; unclassified (1 source) H/O: steroid therapy; Translations: [Personal history of systemic steroid therapy] 06-30-2023 Episodic Spondylosis; intervertebral disc disorders; other back problems (1 source) Neck pain; Translations: [Cervicalgia] Episodic Past or Other Problems Problem Classification Problem Date Documented Da te Episodic/Chronic Administrative/social admission (2 sources) Impaired mobility; Translations: [Other reduced mobility] Onset: 07-01-2023 06-30-2023 Episodic Other bone disease and musculoskeletal deformities (20 sources) Senile osteopenia; Translations: [Other specified disorders of bone density and structure, unspecified site] Onset: 09-12-2022 09-12-2022 Episodic Other bone disease and musculoskeletal deformities (1 source) Other specified disorders of bone density and structure, unspecified site; Translations: [Osteopenia, senile] Onset: 09-12-2022 Episodic Other bone disease and musculoskeletal deformities (1 source) Disorder of bone, unspecified; Translations: [Disorder of bone and cartilage] Onset: 07-01-2023 Episodic Other bone disease and musculoskeletal deformities (1 source) Disorder of cartilage, unspecified; Translations: [Disorder of bone and cartilage] Onset: 07-01-2023 Episodic Other screening for suspected conditions (not mental disorders or infectious disease) (5 sources) Patient encounter status; Translations: [Encounter for screening for osteoporosis] Onset: 09-20-2023 Episodic Phlebitis; thrombophlebitis and thromboembolism (20 sources) Deep venous thrombosis; Translations: [Acute embolism and thrombosis of unspecified deep veins of unspecified lower extremity] Onset: 03-28-2018 03-28-2018 Episodic Residual codes; unclassified (20 sources) Postmenopausal state; Translations: [Asymptomatic menopausal state] Onset: 06-19-2008 06-19-2008 Episodic Residual codes; unclassified (20 sources) Family history of cancer of colon; Translations: [Family history of malignant neoplasm of digestive organs] Onset: 09-03-2017 09-03-2017 Episodic Residual codes; unclassified (1 source) Personal history of systemic steroid therapy; Translations: [Hx of steroid therapy] Onset: 07-01-2023 Episodic Results Test Name Value Interpretation Reference Range Facil ity Vital Signs Date Time Vital Sign Value Performing Clinician Janell haas 01-17-2024 10:38-0500 Body weight 61.33 kg Timothy Palmer MD Work Phone: [facility] 01-17-2024 10:38-0500 Diastolic blood pressure 78 mm[Hg] Timothy Palmer MD Work Phone: [facility] 01-17-2024 10:38-0500 Heart rate 89 /min Timothy Palmer MD Work Phone: [facility] 01-17-2024 10:38-0500 SaO2% (BldA) [Mass fraction] 97 % Timothy Palmer MD Work Phone: [facility] 01-17-2024 10:38-0500 Systolic blood pressure 152 mm[Hg] Timothy Palmer MD Work Phone: [facility] 01-03-2024 09:00-0500 Diastolic blood pressure 78 mm[Hg] Morena Haagen PATENT EXAMINER.AUTOMATIC VULCANIZING OPERATOR Work Phone: [facility] 01-03-2024 09:00-0500 Heart rate 68 /min Morena Haagen PATENT EXAMINER.AUTOMATIC VULCANIZING OPERATOR Work Phone: [facility] 01-03-2024 09:00-0500 Systolic blood pressure 164 mm[Hg] Morena Haagen PATENT EXAMINER.AUTOMATIC VULCANIZING OPERATOR Work Phone: [facility] 01-03-2024 08:18-0500 Body weight 62.6 kg Morena Haagen PATENT EXAMINER.AUTOMATIC VULCANIZING OPERATOR Work Phone: [facility] 01-03-2024 08:18-0500 Respiratory rate 16 /min Morena Polancoagen PATENT EXAMINER.AUTOMATIC VULCANIZING OPERATOR Work Phone: [facility] 01-03-2024 08:18-0500 SaO2% (BldA) [Mass fraction] 96 % Morena Haagen PATENT EXAMINER.AUTOMATIC VULCANIZING OPERATOR Work Phone: [facility] 10-25-2023 09:30-0500 Body weight 63.32 kg Rusty Podlogar PATENT EXAMINER.AUTOMATIC VULCANIZING OPERATOR Work Phone: [facility] 10-25-2023 09:30-0500 Diastolic blood pressure 80 mm[Hg] Rusty Podlogar PATENT EXAMINER.AUTOMATIC VULCANIZING OPERATOR Work Phone: [facility] 10-25-2023 09:30-0500 Heart rate 60 /min Rusty Podlogar PATENT EXAMINER.AUTOMATIC VULCANIZING OPERATOR Work Phone: [facility] 10-25-2023 09:30-0500 Respiratory rate 16 /min Rusty Podlogar PATENT EXAMINER.AUTOMATIC VULCANIZING OPERATOR Work Phone: [facility] 10-25-2023 09:30-0500 SaO2% (BldA) [Mass fraction] 98 % Rusty Podlogar PATENT EXAMINER.AUTOMATIC VULCANIZING OPERATOR Work Phone: [facility] 10-25-2023 09:30-0500 Systolic blood pressure 142 mm[Hg] Rusty Podlogar PATENT EXAMINER.AUTOMATIC VULCANIZING OPERATOR Work Phone: [facility] 10-09-2023 08:27-0500 Body temperature 98.29 [degF] Mago Butts PATENT EXAMINER.AUTOMATIC VULCANIZING OPERATOR Work Phone: [facility] 10-09-2023 08:27-0500 Body weight 63.05 kg Mago Butts PATENT EXAMINER.AUTOMATIC VULCANIZING OPERATOR Work Phone: [facility] 10-09-2023 08:27-0500 Diastolic blood pressure 90 mm[Hg] Mago Butts PATENT EXAMINER.AUTOMATIC VULCANIZING OPERATOR Work Phone: [facility] 10-09-2023 08:27-0500 Heart rate 94 /min Mago Butts PATENT EXAMINER.AUTOMATIC VULCANIZING OPERATOR Work Phone: [facility] 10-09-2023 08:27-0500 Respiratory rate 16 /min Mago Butts PATENT EXAMINER.AUTOMATIC VULCANIZING OPERATOR Work Phone: [facility] 10-09-2023 08:27-0500 SaO2% (BldA) [Mass fraction] 97 % Mago Butts PATENT EXAMINER.AUTOMATIC VULCANIZING OPERATOR Work Phone: [facility] 10-09-2023 08:27-0500 Systolic blood pressure 144 mm[Hg] Mago Benjamín DONALD.AUTOMATIC VULCANIZING OPERATOR Work Phone: [facility] 07-01-2023 08:04-0400 Body weight 63.05 kg NA Ferguson PA-C Work Phone: [facility] 07-01-2023 08:04-0400 Diastolic blood pressure 72 mm[Hg] NA Ferguson PA-C Work Phone: [facility] 07-01-2023 08:04-0400 Heart rate 71 /min NA Ferguson PA-C Work Phone: [facility] 07-01-2023 08:04-0400 Respiratory rate 16 /min NA Ferguson PA-C Work Phone: [facility] 07-01-2023 08:04-0400 SaO2% (BldA) [Mass fraction] 97 % NA Ferguson PA-C Work Phone: [facility] 07-01-2023 08:04-0400 Systolic blood pressure 130 mm[Hg] NA Ferguson PA-C Work Phone: [facility] 12-31-2022 08:02-0500 Body weight 63.05 kg NA Ferguson PA-C Work Phone: [facility] 12-31-2022 08:02-0500 Diastolic blood pressure 80 mm[Hg] NA Ferguson PA-C Work Phone: [facility] 12-31-2022 08:02-0500 Heart rate 76 /min NA Ferguson PA-C Work Phone: [facility] 12-31-2022 08:02-0500 Respiratory rate 16 /min NA Ferguson PA-C Work Phone: [facility] 12-31-2022 08:02-0500 SaO2% (BldA) [Mass fraction] 97 % NA Ferguson PA-C Work Phone: [facility] 12-31-2022 08:02-0500 Systolic blood pressure 126 mm[Hg] NA Ferguson PA-C Work Phone: [facility] 11-05-2022 09:37-0500 Body weight 63.32 kg NA Ferguson PA-C Work Phone: [facility] 11-05-2022 09:37-0500 Diastolic blood pressure 78 mm[Hg] NA Ferguson PA-C Work Phone: [facility] 11-05-2022 09:37-0500 Heart rate 68 /min NA Ferguson PA-C Work Phone: [facility] 11-05-2022 09:37-0500 Respiratory rate 16 /min NA Ferguson PA-C Work Phone: [facility] 11-05-2022 09:37-0500 SaO2% (BldA) [Mass fraction] 98 % NA Ferguson PA-C Work Phone: [facility] 11-05-2022 09:37-0500 Systolic blood pressure 132 mm[Hg] NA Ferguson PA-C Work Phone: [facility] Encounters Encounter Date Encounter Type Care Provider Facility Start: 01-17-2024 End: 01-17-2024 ambulatory Leilani FERGUSON Facility:[facility] Start: 01-17-2024 End: 01-17-2024 Patient encounter procedure Timothy Palmer MD Work Phone: Cardiology Procedures Date Procedure Procedure Detail Performing Clinician Start: 01-17-2024 Ecg routine ecg w/le ast 12 lds i&r only [facility] Provider Start: 10-25-2023 BACTERIAL VAGINOSIS NAAT Rusty Podlogar PATENT EXAMINER.AUTOMATIC VULCANIZING OPERATOR Work Phone: Start: 10-25-2023 [place] trichomonas vaginalis amplified probe tech Rusty Sierra PATENT EXAMINER.AUTOMATIC VULCANIZING OPERATOR Work Phone: Start: 09-20-2023 Screening mammograph y bi 2-view breast inc cad M Gerardo ZAVALA-C Work Phone: Start: 09-06-2023 Prothrombin time [facility] Pr ovider Start: 08-28-2023 INFLUENZA VACCINE, P RSV FREE, AGE 65+ YR, HIGH DOSE, QUADRIVALENT (FLUZONE HIGH-DOSE) Severo De La Fuente MD Work Phone: Start: 09-07-2022 Screening mammograph y bi 2-view breast inc cad M Gerardo Marty CORTES Work Phone: Start: 07-20-2022 Adult depression scr eening assessment JUAN CARLOS Ferguson PA-C Work Phone: Start: 06-15-2021 Adult depression scr eening assessment Sarwat Dee Work Phone: Plan of Treatment Date Care Activity Detail Author Start: 01-03-2027 [facility]: 07-01-2026 DIABETES SCREEN DIABETES SCREEN [facility] Start: 07-01-2026 [facility] Start: 06-23-2026 DIABETES SCREEN DIABETES SCREEN [facility] Start: 07-21-2025 DIABETES SCREEN DIABETES SCREEN [facility] Start: 01-17-2025 End: 01-17-2025 Echocardiography ECHO Cardiology Routine Aortic stenosis, moderate Expected: 01/17/2025, Expires: 01/17/2025 [facility] Work Phone: Immunizations Immunization Date Immunization Notes Care Provider Blane frances 08-28-2023 influenza (HD-IIV4) vaccine, age 65+ yr, high dose, quadrivalent, PF (FLUZONE HIGH-DOSE) Immunization [place] Work Phone: [facility] 08-07-2022 COVID-19 booster vaccine, age 12+ yr, bivalent (PFIZER-BIONTECH) JUAN CARLOS Ferguson PA-C Work Phone: [facility] 08-07-2022 influenza, high-dose , quadrivalent vaccine (FLUZONE HIGH DOSE QUADRIVALENT) JUAN CARLOS Ferguson PA-C Work Phone: [facility] 08-07-2022 influenza virus vaccine, unspecified formulation Anticoag Wstr Work Phone: [facility] 02-26-2022 COVID-19 original vaccine, age 12+ yr, monovalent (PFIZER-BIONTECH - FRASER TOP) NA Marty CORTES Work Phone: [facility] 02-26-2022 COVID-19 vaccine, ag e 12+ yr (PFIZER-BIONTECH - PURPLE TOP) Anticoag Wstr Work Phone: [facility] 09-06-2021 influenza, high-dose , quadrivalent vaccine (FLUZONE HIGH DOSE QUADRIVALENT) Sarwat Dee DO Work Phone: [facility] 08-19-2021 COVID-19 vaccine, ag e 12+ yr (PFIZER-BIONTECH - PURPLE TOP) Sarwat Fletcheri DO Work Phone: [facility] 02-13-2021 COVID-19 vaccine, ag e 12+ yr (PFIZER-BIONTECH - PURPLE TOP) Sarwat Fletcheri DO Work Phone: [facility] 01-23-2021 COVID-19 vaccine, ag e 12+ yr (PFIZER-BIONTECH - PURPLE TOP) Sarwat Fletcheri DO Work Phone: [facility] Work Phone: 09-09-2020 zoster vaccine recombinant Sarwat Dee DO Work Phone: [facility] 08-31-2020 influenza, high-dose , quadrivalent vaccine (FLUZONE HIGH DOSE QUADRIVALENT) Sarwat Dee DO Work Phone: [facility] 06-27-2020 zoster vaccine recombinant Sarwat Dee DO Work Phone: [facility] Work Phone: 08-02-2019 influenza, high dose seasonal, preservative-free Sarwat Dee DO Work Phone: [facility] 08-02-2019 pneumococcal polysaccharide vaccine, 23 valent Sarwat Dee DO Work Phone: [facility] 08-26-2018 influenza, high dose seasonal, preservative-free Sarwat Dee DO Work Phone: [facility] 08-16-2017 influenza, high dose seasonal, preservative-free Sarwat Dee DO Work Phone: [facility] 09-11-2016 influenza, high dose seasonal, preservative-free Sarwat Dee DO Work Phone: [facility] Work Phone: 08-31-2015 influenza, high dose seasonal, preservative-free Sarwat Dee DO Work Phone: [facility] Work Phone: 07-31-2015 pneumococcal conjuga te vaccine, 13 valent Sarwat Dee DO Work Phone: [facility] 09-05-2014 influenza, seasonal, injectable Sarwat Dee DO Work Phone: [facility] Work Phone: 07-12-2014 pneumococcal polysaccharide vaccine, 23 valent Sarwat Dee DO Work Phone: [facility] 09-02-2013 influenza virus vaccine, unspecified formulation Sarwat Dee DO Work Phone: [facility] Work Phone: 08-27-2012 influenza virus vaccine, unspecified formulation Sarwat Dee DO Work Phone: [facility] Work Phone: 06-22-2012 tetanus toxoid, redu maggie diphtheria toxoid, and acellular pertussis vaccine, adsorbed Sarwat Dee DO Work Phone: [facility] 11-19-2009 novel [id number], preservative-free, injectable Sarwat Dee DO Work Phone: [facility] 2008 influenza virus vaccine, unspecified formulation Sarwat Dee DO Work Phone: [facility] Work Phone: 2008 pneumococcal polysaccharide vaccine, 23 valent Sarwat Dee DO Work Phone: [facility] Work Phone: 09-29-2007 influenza virus vaccine, unspecified formulation Sarwat Dee DO Work Phone: [facility] 03-27-2002 tetanus and diphther ia toxoids, adsorbed, preservative free, for adult use (5 Lf of tetanus toxoid and 2 Lf of diphtheria toxoid) Sarwat Dee DO Work Phone: [facility] Payers Date Payer Category Payer Medicare [id number] 2015 Medicare [id number] 2015 Private Health Insurance HUMANA HUMANA MEDICARE SUPPLEMENT [id number] 2015-Present [phone] [address] [address] [place] [address] Indemnity [id number] 2015 Private Health Insurance HUMANA HUMANA MEDICARE SUPPLEMENT [id number] 2015-Present [phone] [address] [address] [place] [address] Indemnity [id number] 2009 Medicare MEDICARE MEDICAR E A AND B [id number] 2009-Present [phone] [address] [address] [place] [address] Medicare [id number] 2009 Medicare [id number] 2009 Medicare [id number] Social History Date Type Detail Facility Start: [facility]-20-2022 [facility] End: 02-09-1992 History of tobacco use Current smoker [facility] End: 02-09-1992 History of tobacco use Cigarette Smoker [facility] Start: 08-18-2021 End: 01-17-2024 Alcohol intake Current drinker of alcohol (finding) [facility] Start: 02-20-2020 End: 11-04-2022 History SDOH Alcohol Frequency 1 [facility] Start: 06-11-2020 End: 11-04-2022 History SDOH Alcohol Std Drinks 98 [facility] Start: 03-16-2008 History SDOH Alcohol Comment ocassional [facility] Start: 02-20-2020 End: 11-04-2022 History SDOH Social Connections Phone 5 [facility] Start: 02-20-2020 End: 11-04-2022 History SDOH Social Connections Get Together 2 [facility] Start: 02-20-2020 End: 11-04-2022 History SDOH Physical Activity DPW 7 [facility] Start: 02-20-2020 End: 07-14-2022 History SDOH Physical Activity MPS 4 [facility] Start: 02-20-2020 Education 12 [facility] Start: 1945 Sex Assigned At Female [facility] Work Phone: Start: 02-13-2022 End: 08-24-2022 Exposure to SARS-CoV-2 (event) Not sure [facility] Work Phone: Start: 07-20-2022 End: 04-05-2023 Cigarettes smoked current (pack per day) - Reported 1 [facility] Start: 07-20-2022 Tobacco use and exposure Smokeless tobacco non-user [facility] Start: 07-14-2022 End: 11-04-2022 History SDOH Social Connections Get Together 3 [facility] Start: 11-04-2022 End: 04-05-2023 Social connection and isolation panel [facility] How often do you att end lutheran or adventist services? Patient refused [facility] Are you now , , , , never or living with a partner? [facility] How often to you hav e a drink containing alcohol? 4 or more times a week [facility] How many standard drinks containing alcohol do you have on a typical day? 1 or 2 [facility] How often do you hav e 6 or more drinks on 1 occasion? Never [facility] Do you feel stress - tense, restless, nervous, or anxious, or unable to sleep at night because your mind is troubled all the time - these days [OSQ] Not at all [facility] (I/We) worried lucina er (my/our) food would run out before (I/we) got money to buy more. Never true [facility] In the past 12 month s, was there a time when you were not able to pay the mortgage or rent on time? No [facility] Start: 02-02-2019 Gender identity Identifies as female gender (finding) [facility] Work Phone: Start: 02-02-2019 Sexual orientation Heterosexual (richa glaser) [facility] Work Phone: Clinical Notes 06-22-2018 to 01-17-2024 Timothy Palmer MD - 01/17/2024 11:36 AM ESTTelephone Encounter - Amira Peralta RN - 01/13/2024 3:15 PM ESTTelephone Encounter - Cheryl Quinonez Ma - 01/13/2024 2:54 PM ESTPatient Instructions Note Date & Type Note Facility 01-17-2024 Note HNO ID: [id number] Author: TIMOTHY PALMER MD Service: ? Author Type: Physician Type: Progress Notes Filed: 01/17/2024 11:40 Note Text: Timothy Palmer MD Interventional Cardiology [address] [place] [address] Chief Complaint Patient presents with: Consult: Aortic stenosis HISTORY OF PRESENT ILLNESS: Ms. Gomes is a 78 year old female seen in my office today for assessment management of the aortic stenosis patient had longstanding history of hypertensive heart disease with prior history of polymyalgia rheumatica and DVT in her left leg many years ago she is known to have a heart murmur since her 30s progress to the point her doctors order an echocardiography which shows senile aortic stenosis Patient is completely asymptomatic denies chest pain or shortness of breath no signs or symptoms of congestive heart failure physically active with no limitation Echocardiography was normal left ventricular function ejection fraction 59% normal right ventricular size and function mild tricuspid insufficiency moderate aortic stenosis with aortic valve area 1.26 cm? peak gradient of 21 and a mean gradient of 12 with a indexed aortic valve area of 0.74 cm?/m? 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 Nonspecific abnormal results of liver function study Other malaise and fatigue Polymyalgia rheumatica (HCC) Unspecified constipation PAST SURGICAL HISTORY Procedure Laterality Date APPENDECTOMY 1961 OOPHORECTOMY PARTIAL/TOTAL UNI/BI 1971 left OOPHORECTOMY PARTIAL/TOTAL UNI/BI 1986 right PAST SURGICAL HISTORY OF 12-15-07 CT abdomen PAST SURGICAL HISTORY OF 12/29/07 limited U/S abdomen PAST SURGICAL HISTORY OF 1974 hysterectomy PAST SURGICAL HISTORY OF 1987 left mandibular salivary gland removed PAST SURGICAL HISTORY OF 02/11/00 Excise polo's neuroma Right foot FAMILY HISTORY Problem Relation Age of Onset Colon Cancer Father Diabetes Father Coronary Artery Disease Father Cancer Brother brother Stroke Maternal Grandfather Diabetes Son No Known Problems Son Social History Tobacco Use Smoking status: Former Packs/day: 1.00 Years: 30.00 Additional pack years: 0.00 Total pack years: 30.00 Types: Cigarettes Quit date: 02/09/1992 Years since quittin.9 Smokeless tobacco: Never Substance Use Topics Alcohol use: Yes Comment: ocassional Drug use: No ALLERGIES Allergen Reactions Penicillins Itching tingling of tongue AND face- no shortness of breath Medications: Current Outpatient Medications Medication Sig Dispense Refill clotrimazole-betamethasone (LOTRISONE) cream Apply to affected area two times a day for 14 days. 30 g 0 lisinopril (ZESTRIL) 10 mg tablet Take 1 tablet by mouth once daily. 30 tablet 1 warfarin (COUMADIN) 7.5 mg tablet 7.5mg on Mon and Fri and 10mg all other days or as directed by provider . (Patient taking differently: 7.5mg on Mon, Wed, and Fri and 10mg all other days or as directed by provider .) 90 tablet 3 CALCIUM CARB/VIT D3/MINERALS (CALCIUM CARBONATE-VIT D3-MIN) 1,200 mgcalcium -1,000 unit chew Take 1 capsule by mouth once daily. MAGNESIUM CARBONATE ORAL Take 500 mg by mouth once daily. MULTIVITAMIN TAB Take one(1) tablet daily. 0 Current Facility-Administered Medications Medication Dose Route Frequency Provider Last Rate Last Admin perflutren lipid microspheres 1.3 mL in NaCl (PF) 0.9% 10 mL injection (DEFINITY) INTRAVENOUS DIRECTED PRN Timothy Palmer MD sodium chloride 0.9 % (flush) 10 mL (BD POSIFLUSH) 10 mL INTRAVENOUS DIRECTED PRN Liane Palmeraled Meloud, MD Review of Systems Constitutional: Negative for chills, diaphoresis, fever, malaise/fatigue and weight loss. HENT: Negative for congestion, ear discharge, ear pain, hearing loss, nosebleeds, sinus pain, sore throat and tinnitus. Eyes: Negative for blurred vision, double vision, photophobia, pain, discharge and redness. Respiratory: Negative for cough, hemoptysis, sputum production, shortness of breath, wheezing and stridor. Cardiovascular: Negative for chest pain, palpitations, orthopnea, claudication, leg swelling and PND. Gastrointestinal: Negative for abdominal pain, blood in stool, constipation, diarrhea, heartburn, melena, nausea and vomiting. Genitourinary: Negative for dysuria, flank pain, frequency, hematuria and urgency. Musculoskeletal: Negative for back pain, falls, joint pain, myalgias and neck pain. Skin: Negative for itching and rash. Neurological: Negative for dizziness, tingling, tremors, sensory change, speech change (more content not included)... [facility] 01-17-2024 History of Presen t illness Narrative Images from the original note were not included. Timothy Palmer MD Interventional Cardiology [address] [place] [address] Chief Complaint Patient presents with: Consult: Aortic stenosis HISTORY OF PRESENT ILLNESS: Ms. Gomes is a 78 year old female seen in my office today for assessment management of the aortic stenosis patient had longstanding history of hypertensive heart disease with prior history of polymyalgia rheumatica and DVT in her left leg many years ago she is known to have a heart murmur since her 30s progress to the point her doctors order an echocardiography which shows senile aortic stenosis Patient is completely asymptomatic denies chest pain or shortness of breath no signs or symptoms of congestive heart failure physically active with no limitation Echocardiography was normal left ventricular function ejection fraction 59% normal right ventricular size and function mild tricuspid insufficiency moderate aortic stenosis with aortic valve area 1.26 cm peak gradient of 21 and a mean gradient of 12 with a indexed aortic valve area of 0.74 cm /m 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 Nonspecific abnormal results of liver function study Other malaise and fatigue Polymyalgia rheumatica (HCC) Unspecified constipation PAST SURGICAL HISTORY Procedure Laterality Date APPENDECTOMY 1961 OOPHORECTOMY PARTIAL/TOTAL UNI/BI 1971 left OOPHORECTOMY PARTIAL/TOTAL UNI/BI 1986 right PAST SURGICAL HISTORY OF 12-15-07 CT abdomen PAST SURGICAL HISTORY OF 12/29/07 limited U/S abdomen PAST SURGICAL HISTORY OF 1974 hysterectomy PAST SURGICAL HISTORY OF 1987 left mandibular salivary gland removed PAST SURGICAL HISTORY OF 02/11/00 Excise polo's neuroma Right foot FAMILY HISTORY Problem Relation Age of Onset Colon Cancer Father Diabetes Father Coronary Artery Disease Father Cancer Brother brother Stroke Maternal Grandfather Diabetes Son No Known Problems Son Social History Tobacco Use Smoking status: Former Packs/day: 1.00 Years: 30.00 Additional pack years: 0.00 Total pack years: 30.00 Types: Cigarettes Quit date: 02/09/1992 Years since quittin.9 Smokeless tobacco: Never Substance Use Topics Alcohol use: Yes Comment: ocassional Drug use: No ALLERGIES Allergen Reactions Penicillins Itching tingling of tongue & face- no shortness of breath Medications: Current Outpatient Medications Medication Sig Dispense Refill clotrimazole-betamethasone (LOTRISONE) cream Apply to affected area two times a day for 14 days. 30 g 0 lisinopril (ZESTRIL) 10 mg tablet Take 1 tablet by mouth once daily. 30 tablet 1 warfarin (COUMADIN) 7.5 mg tablet 7.5mg on Mon and Fri and 10mg all other days or as directed by provider . (Patient taking differently: 7.5mg on Mon, Wed, and Fri and 10mg all other days or as directed by provider .) 90 tablet 3 CALCIUM CARB/VIT D3/MINERALS (CALCIUM CARBONATE-VIT D3-MIN) 1,200 mgcalcium -1,000 unit chew Take 1 capsule by mouth once daily. MAGNESIUM CARBONATE ORAL Take 500 mg by mouth once daily. MULTIVITAMIN TAB Take one(1) tablet daily. 0 Current Facility-Administered Medications Medication Dose Route Frequency Provider Last Rate Last Admin perflutren lipid microspheres 1.3 mL in NaCl (PF) 0.9% 10 mL injection (DEFINITY) INTRAVENOUS DIRECTED PRN Timothy Palmer MD sodium chloride 0.9 % (flush) 10 mL (BD POSIFLUSH) 10 mL INTRAVENOUS DIRECTED PRN Timothy Palmer MD Review of Systems Constitutional: Negative for chills, diaphoresis, fever, malaise/fatigue and weight loss. HENT: Negative for congestion, ear discharge, ear pain, hearing loss, nosebleeds, sinus pain, sore throat and tinnitus. Eyes: Negative for blurred vision, double vision, photophobia, pain, discharge and redness. Respiratory: Negative for cough, hemoptysis, sputum production, shortness of breath, wheezing and stridor. Cardiovascular: Negative for chest pain, palpitations, orthopnea, claudication, leg swelling and PND. Gastrointestinal: Negative for abdominal pain, blood in stool, constipation, diarrhea, heartburn, melena, nausea and vomiting. Genitourinary: Negative for dysuria, flank pain, frequency, hematuria and urgency. Musculoskeletal: Negative for back pain, falls, joint pain, myalgias and neck pain. Skin: Negative for itching and rash. Neurological: Negative for dizziness, tingling, tremors, sensory change, speech change, focal weakness, seizures, loss of consciousness, weakness and headaches. Endo/Heme/Allergies: Negative for environmental allergies and polydipsia. Does not bruise/bleed easily. Psychiatric/Behavioral: Negative for depression, hallucinations, memory loss, substance abuse and suicidal ideas. The patient is not nervous/anxious and does not have insomnia. Physical Examination: Vitals:BP 152/78 Pulse 89 Wt 135 lb 3.2 oz (61.3kg) SpO2 97% BP w/Orthostatic Vitals Date and Time Orthostatic BP Orthostatic Pulse BP Pulse BP Position BP Site BP Cuff Size 01/17/24 1038 -- -- 152/78 89 Sitting Right Arm Regular Adult Last 2 Encounter Wt Readings: Date: Wt: 01/17/2024 61.3 kg (135 lb 3.2 oz) 01/03/2024 62.6 kg (138 lb) Physical Exam Constitutional: General: She is not in acute distress. Appearance: She is not diaphoretic. HENT: Head: Normocephalic and atraumatic. Right Ear: External ear normal. Left Ear: External ear normal. Nose: Nose normal. Mouth/Throat: Mouth: Mucous membranes are moist. Eyes: General: Right eye: No discharge. Left eye: No discharge. Conjunctiva/sclera: Conjunctivae normal. Pupils: Pupils are equal, round, and reactive to light. Cardiovascular: Rate and Rhythm: Normal rate and regular rhythm. Heart sounds: S1 normal and S2 normal. Murmur heard. No friction rub. No gallop. No S3 or S4 sounds. Pulmonary: Effort: Pulmonary effort is normal. No respiratory distress. Breath sounds: Normal breath sounds. No wheezing or rales. Chest: Chest wall: No tenderness. Musculoskeletal: General: Normal range of motion. Cervical back: Normal range of motion and neck supple. Skin: General: Skin is warm and dry. Neurological: Mental Status: She is alert and oriented to person, place, and time. Psychiatric: Mood and Affect: Mood normal. Thought Content: Thought content normal. Pertinent Labs: CBC: Hemoglobin (g/dL) Date Value 01/03/2024 14.0 08/11/2021 12.8 08/11/2021 13.0 Hematocrit (%) Date Value 01/03/2024 44.7 08/11/2021 39.9 08/11/2021 40.2 WBC (k/uL) Date Value 01/03/2024 8.23 08/11/2021 7.05 08/11/2021 7.11 Platelet Count (k/uL) Date Value 01/03/2024 288 08/11/2021 272 08/11/2021 265 BMP: Glucose (mg/dL) Date Value 01/03/2024 93 08/11/2021 92 Potassium (mmol/L) Date Value 01/03/2024 4.3 08/11/2021 4.2 Sodium (mmol/L) Date Value 01/03/2024 141 08/11/2021 139 Chloride (mmol/L) Date Value 01/03/2024 105 08/11/2021 102 CO2 (mmol/L) Date Value 01/03/2024 25 08/11/2021 23 Creatinine (mg/dL) Date Value 01/03/2024 0.66 08/11/2021 0.66 BUN (mg/dL) Date Value 01/03/2024 12 08/11/2021 13 Anion Gap (mmol/L) Date Value 01/03/2024 11 08/11/2021 14 Calcium (mg/dL) Date Value 08/11/2021 9.7 Calcium, Total (mg/dL) Date Value 01/03/2024 10.0 INR: Lipid Profile: Cholesterol, Total Date Value Ref Range Status 01/03/2024 216 (H) <200 mg/dL Final Comment: <200 mg/dL, Desirable 200-239 mg/dL, Borderline high >239 mg/dL, High HDL Cholesterol Date Value Ref Range Status 01/03/2024 112 >39 mg/dL Final Comment: 40-59 mg/dL, Acceptable >59 mg/dL, High: Negative risk factor for coronary heart disease <40 mg/dL, Low: Positive risk factor for coronary heart disease LDL Cholesterol Date Value Ref Range Status 01/03/2024 94 <100 mg/dL Final Comment: <100 mg/dL, Optimal 100-129 mg/dL, Near optimal/above optimal 130-159 mg/dL, Borderline high 160-189 mg/dL, High >189 mg/dL, Very high Secondary prevention optimal LDL Cholesterol levels are recommended to be < 70 mg/dL Triglyceride Date Value Ref Range Status 01/03/2024 50 <150 mg/dL Final Comment: <150 mg/dL, Normal 150-199 mg/dL, Borderline high 200-499 mg/dL, High >499 mg/dL, Very high Hemoglobin A1C: No results found for: HGBA1C TSH: No results found for: TSHREFL Prior Cardiac Testing EKG Assessment and Plan: 78 years old female patient with asymptomatic moderate aortic stenosis ASSESSMENT/PLAN: 1. Aortic stenosis, moderate - ICD9: 424.1, ICD10: I35.0 (primary diagnosis) Asymptomatic with moderate degree of aortic stenosis Recommend clinical follow-up Yearly cardiology visit Yearly echocardiography - ECG COMPLETE - ECHO - PERFLUTREN LIPID MICROSPHERES 1.1 MG/ML INJECTION IN NS 10 ML - SODIUM CHLORIDE 0.9 % (FLUSH) INJECTION SYRINGE 2. Primary hypertension - ICD9: 401.9, ICD10: I10 - Controlled - Continue current medications - Recommend home blood pressure monitoring, to bring results to next visit - Encouraged sodium restriction, DASH or Mediterranean diet - Recommend regular aerobic exercise Timothy Palmer MD Follow up planning: ONE YEAR Electronically signed by Timothy Palmer MD on January 17, 2024, 11:36 AM The above note was partially created using a dictation recognition software. A reasonable attempt has been made to correct any errors. documented in this encounter [facility] 01-13-2024 Miscellaneous Notes Patient calls and notified of results and providers instructions. Patient verbalizes understanding. Patient transferred to schedule cardiology referral. Amira Peralta RN Left message for patient to return call. Cheryl Quinonez Ma Her echo shows moderate narrowing of the one heart valve. Likely just needs followed periodically. See cardiology to follow documented in this encounter [facility] 01-13-2024 Miscellaneous Notes Patient notified of results and provider's instructions. Patient verbalizes understanding. Kiara Del Rosario RN Left message for patient to call office and speak with nurse. Her carotid shows mild narrowing. It also shows what could be a condition called fibromuscular dysplasia which is thickening of the arteries. If that is a question, I usually ask vascular to see her. documented in this encounter [facility] 01-03-2024 Note HNO ID: [id number] Author: DAMARIS FIERRO MD Service: ? Author Type: Physician Type: Progress Notes Filed: 01/03/2024 12:29 Note Text: agree [facility] 01-03-2024 Note HNO ID: [id number] Author: CT ALLEN RN Service: ? Author Type: Registered Nurse Type: Progress Notes Filed: 01/03/2024 12:29 Note Text: patient had inr completed at [facility] patients inr is 2.2 (patients inr range is 2.0-3.0) patient is currently taking 10mg Tues,Thurs and 7.5mg all other days patients last dose change was on 08/16/23 due to a high level of 4.0 (dose at that time was 7.5mg Mon,Wed,Sat and 10mg all other days) patient has had no changes in medication and no missed doses and no change in diet Advised patient to continue on the same dose(s) and that they would only be contacted regarding dosage and follow up instructions after review with provider, if a change is needed. Written instructions given and patient verbalized understanding. Presently scheduled in 4 weeks (01/31/24) for follow up INR. [facility] 01-03-2024 Note HNO ID: [id number] Author: MORENA URBINA APRN.RAMON Service: ? Author Type: Nurse Practitioner Type: Progress Notes Filed: 01/03/2024 17:58 Note Text: This is a 78 year old female who presents today with: Patient presents with: 6 Month Exam: C/o rectal/vaginal yeast infection HISTORY OF PRESENT ILLNESS: Telma Gomes is a 78 year old female. Patient presents with: 6 Month Exam: C/o rectal/vaginal yeast infection Pt presents today for a 6-month follow-up. Refers that she also has a yeast infection. Refers that this time it has been going on for the last 3 weeks. Not as bad as it has been in the past. No vaginal discharge. No vaginal odor. Primarily skin infection. She reports in the past, that she was treated with Mycolog. She is also used fluconazole. She is also used clotrimazole. She has been using [id number] treatment, specifically vagisil. No diabetes. Found to be prediabetic in the past. Chronic anticoagulation. No abnormal s/s of bleedng. REVIEW OF SYSTEMS GENERAL: No weight loss, malaise or fevers/chills HEENT: Negative for frequent or significant headaches, No changes in hearing or vision. NECK: Negative for lumps, goiter, pain and significant neck swelling RESPIRATORY: Negative for cough, hemoptysis, wheezing, dyspnea or shortness of breath CARDIOVASCULAR: Negative for chest pain, leg swelling, orthopnea, or palpitations GI: No nausea, vomiting, or diarrhea. + constipation. No hematochezia/melena. No heartburn or reflux symptoms. : No history of dysuria, frequency or incontinence MUSCULOSKELETAL: Negative for joint pain or swelling. 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 Nonspecific abnormal results of liver function study Other malaise and fatigue Polymyalgia rheumatica (HCC) Unspecified constipation PAST SURGICAL HISTORY Procedure Laterality Date APPENDECTOMY 1961 OOPHORECTOMY PARTIAL/TOTAL UNI/BI 1970 left OOPHORECTOMY PARTIAL/TOTAL UNI/BI 1986 right PAST SURGICAL HISTORY OF 12-15-07 CT abdomen PAST SURGICAL HISTORY OF 12/29/07 limited U/S abdomen PAST SURGICAL HISTORY OF 1974 hysterectomy PAST SURGICAL HISTORY OF 1987 left mandibular salivary gland removed PAST SURGICAL HISTORY OF 02/11/00 Excise polo's neuroma Right foot ALLERGIES Penicillins MEDICATIONS Current Outpatient Medications Medication Sig warfarin (COUMADIN) 7.5 mg tablet 7.5mg on Mon and Fri and 10mg all other days or as directed by provider . (Patient taking differently: 7.5mg on Mon, Wed, and Fri and 10mg all other days or as directed by provider .) CALCIUM CARB/VIT D3/MINERALS (CALCIUM CARBONATE-VIT D3-MIN) 1,200 mgcalcium -1,000 unit chew Take 1 capsule by mouth once daily. MAGNESIUM CARBONATE ORAL Take 500 mg by mouth once daily. MULTIVITAMIN TAB Take one(1) tablet daily. warfarin (COUMADIN) 10 mg tablet 7.5mg Mon, Fri and 10mg all other days or as directed (Patient taking differently: 7.5mg Mon, Wed, Fri and 10mg all other days or as directed) cholecalciferol(VITAMIN D 1,000 UNIT CAP) Take one(1) tablet daily. No current facility-administered medications for this visit. FAMILY HISTORY Problem Relation Age of Onset Colon Cancer Father Diabetes Father Coronary Artery Disease Father Cancer Brother brother Stroke Maternal Grandfather Diabetes Son No Known Problems Son Social History Tobacco Use Smoking status: Former Packs/day: 1.00 Years: 30.00 Additional pack years: 0.00 Total pack years: 30.00 Types: Cigarettes Quit date: 02/09/1992 Years since quittin.9 Smokeless tobacco: Never Substance Use Topics Alcohol use: Yes Comment: ocassional Drug use: No EXAM: BP 164/78 Pulse 68 Resp 16 Wt 62.6 kg (138 lb) SpO2 96% BMI 22.11 kg/m? PHYSICAL EXAM: General Appearance: Well appearing, alert, in no acute distress, well-hydrated, well nourished.. Skin: Skin color, texture, turgor normal, no suspicious rashes or lesions. Pt with excoriation between buttocks. Head: Normocephalic, no masses, lesions, tenderness or abnormalities. Eyes: Anicteric sclera. Pupils are equally round and reactive to light. Extraocular movements are intact. . Ears: External ears normal, canals clear. Normal TMs bilaterally. Oropharynx: Lips, mucosa, and tongue normal, teeth and gums normal, oropharynx normal. Neck: Supple, no adenopathy; thyroid symmetric, normal size, + right sided bruit. Lungs: Lungs clear to auscultation. No wheezing, rhonchi, rales.. Heart: RRR. + m (more content not included)... [facility] 01-03-2024 History of Presen t illness Narrative agree patient had inr completed at [facility] patients inr is 2.2 (patients inr range is 2.0-3.0) patient is currently taking 10mg Tues,Thurs and 7.5mg all other days patients last dose change was on 08/16/23 due to a high level of 4.0 (dose at that time was 7.5mg Mon,Wed,Sat and 10mg all other days) patient has had no changes in medication and no missed doses and no change in diet Advised patient to continue on the same dose(s) and that they would only be contacted regarding dosage and follow up instructions after review with provider, if a change is needed. Written instructions given and patient verbalized understanding. Presently scheduled in 4 weeks (01/31/24) for follow up INR. documented in this encounter [facility] 01-03-2024 Instructions Morena Urbina APRN.RAMON - 01/03/2024 9:00 AM EST Start the new cream. Let me know if not covered by insurance. Use the fluconazole-- one pill by mouth one time, and repeat in 1 week if needed. Start the lisinopril for blood pressure. Schedule the echocardiogram. Schedule the ultrasound of the neck. Let me know if no better/worsening of symptoms. Recheck in 1 month, sooner if needed. documented in this encounter [facility] 01-03-2024 History of Presen t illness Narrative This is a 78 year old female who presents today with: Patient presents with: 6 Month Exam: C/o rectal/vaginal yeast infection HISTORY OF PRESENT ILLNESS: Telma Gomes is a 78 year old female. Patient presents with: 6 Month Exam: C/o rectal/vaginal yeast infection Pt presents today for a 6-month follow-up. Refers that she also has a yeast infection. Refers that this time it has been going on for the last 3 weeks. Not as bad as it has been in the past. No vaginal discharge. No vaginal odor. Primarily skin infection. She reports in the past, that she was treated with Mycolog. She is also used fluconazole. She is also used clotrimazole. She has been using [id number] treatment, specifically vagisil. No diabetes. Found to be prediabetic in the past. Chronic anticoagulation. No abnormal s/s of bleedng. REVIEW OF SYSTEMS GENERAL: No weight loss, malaise or fevers/chills HEENT: Negative for frequent or significant headaches, No changes in hearing or vision. NECK: Negative for lumps, goiter, pain and significant neck swelling RESPIRATORY: Negative for cough, hemoptysis, wheezing, dyspnea or shortness of breath CARDIOVASCULAR: Negative for chest pain, leg swelling, orthopnea, or palpitations GI: No nausea, vomiting, or diarrhea. + constipation. No hematochezia/melena. No heartburn or reflux symptoms. : No history of dysuria, frequency or incontinence MUSCULOSKELETAL: Negative for joint pain or swelling. 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 Nonspecific abnormal results of liver function study Other malaise and fatigue Polymyalgia rheumatica (HCC) Unspecified constipation PAST SURGICAL HISTORY Procedure Laterality Date APPENDECTOMY 1961 OOPHORECTOMY PARTIAL/TOTAL UNI/BI 1971 left OOPHORECTOMY PARTIAL/TOTAL UNI/BI 1986 right PAST SURGICAL HISTORY OF 12-15-07 CT abdomen PAST SURGICAL HISTORY OF 12/29/07 limited U/S abdomen PAST SURGICAL HISTORY OF 1974 hysterectomy PAST SURGICAL HISTORY OF 1987 left mandibular salivary gland removed PAST SURGICAL HISTORY OF 02/11/00 Excise polo's neuroma Right foot ALLERGIES Penicillins MEDICATIONS Current Outpatient Medications Medication Sig warfarin (COUMADIN) 7.5 mg tablet 7.5mg on Mon and Fri and 10mg all other days or as directed by provider . (Patient taking differently: 7.5mg on Mon, Wed, and Fri and 10mg all other days or as directed by provider .) CALCIUM CARB/VIT D3/MINERALS (CALCIUM CARBONATE-VIT D3-MIN) 1,200 mgcalcium -1,000 unit chew Take 1 capsule by mouth once daily. MAGNESIUM CARBONATE ORAL Take 500 mg by mouth once daily. MULTIVITAMIN TAB Take one(1) tablet daily. warfarin (COUMADIN) 10 mg tablet 7.5mg Mon, Fri and 10mg all other days or as directed (Patient taking differently: 7.5mg Mon, Wed, Fri and 10mg all other days or as directed) cholecalciferol(VITAMIN D 1,000 UNIT CAP) Take one(1) tablet daily. No current facility-administered medications for this visit. FAMILY HISTORY Problem Relation Age of Onset Colon Cancer Father Diabetes Father Coronary Artery Disease Father Cancer Brother brother Stroke Maternal Grandfather Diabetes Son No Known Problems Son Social History Tobacco Use Smoking status: Former Packs/day: 1.00 Years: 30.00 Additional pack years: 0.00 Total pack years: 30.00 Types: Cigarettes Quit date: 02/09/1992 Years since quittin.9 Smokeless tobacco: Never Substance Use Topics Alcohol use: Yes Comment: ocassional Drug use: No EXAM: BP 164/78 Pulse 68 Resp 16 Wt 62.6 kg (138 lb) SpO2 96% BMI 22.11 kg/m PHYSICAL EXAM: General Appearance: Well appearing, alert, in no acute distress, well-hydrated, well nourished.. Skin: Skin color, texture, turgor normal, no suspicious rashes or lesions. Pt with excoriation between buttocks. Head: Normocephalic, no masses, lesions, tenderness or abnormalities. Eyes: Anicteric sclera. Pupils are equally round and reactive to light. Extraocular movements are intact. . Ears: External ears normal, canals clear. Normal TMs bilaterally. Oropharynx: Lips, mucosa, and tongue normal, teeth and gums normal, oropharynx normal. Neck: Supple, no adenopathy; thyroid symmetric, normal size, + right sided bruit. Lungs: Lungs clear to auscultation. No wheezing, rhonchi, rales.. Heart: RRR. + murmur 1-2/6 RUSB. no gallop, or rubs. No ectopy. Abdomen: Abdomen soft, non-tender. Bowel sounds normal. No masses, organomegaly. Extremities: No deformities, edema, skin discoloration, clubbing or cyanosis. Good capillary refill. Neurologic: Gait normal. ASSESSMENT/PLAN: 1. Skin irritation - ICD9: 709.9, ICD10: R23.8 (primary diagnosis) Yeast vs dermatitis. Will start lotrisone. Fluconazole. STOP VAGISIL! - CLOTRIMAZOLE-BETAMETHASONE 1 %-0.05 % TOPICAL CREAM - FLUCONAZOLE 150 MG TABLET Plain water or mild soap and water for cleansing. 2. Bruit of right carotid artery - ICD9: 785.9, ICD10: R09.89 Suspect referred from the cardiac murmur. Will get carotid duplex to r/o stenosis. - US CAROTID ARTERIES [facility] 3. Heart murmur - ICD9: 785.2, ICD10: R01.1 - ECHO - PERFLUTREN LIPID MICROSPHERES 1.1 MG/ML INJECTION IN NS 10 ML - SODIUM CHLORIDE 0.9 % (FLUSH) INJECTION SYRINGE 4. Elevated blood sugar - ICD9: 790.29, ICD10: R73.9 - HGB A1C 5. Chronic anticoagulation - ICD9: V58.61, ICD10: Z79.01 No s/s of bleeding. - CBC + DIFF 6. Primary hypertension - ICD9: 401.9, ICD10: I10 - Uncontrolled - start lisinopril. - Recommend home blood pressure monitoring, to bring results to next visit - Encouraged sodium restriction, DASH or Mediterranean diet - Recommend regular aerobic exercise - LISINOPRIL 10 MG TABLET - COMP METABOLIC PANEL Discussed potential side effects of ordered medications. Patient voices understanding. 7. Hyperlipidemia, mixed - ICD9: 272.2, ICD10: E78.2 - Control undetermined, due for labs - Counseled on healthy diet and regular exercise - LIPID PANEL BASIC Discussed treatment plan and patient voices understanding. Patient's questions answered appropriately. Medications and potential side effects were discussed and patient voices understanding. Return to the office as scheduled or as needed for worsening/no improvement. Morena Urbina APRN.AUTOMATIC VULCANIZING OPERATOR documented in this encounter [facility] 12-06-2023 Note HNO ID: [id number] Author: Leilani FERGUSON PA-C Service: ? Author Type: Physician Alum Plant Supervisor Type: Progress Notes Filed: 12/07/2023 08:45 Note Text: Agree: same dose, 4 weeks Robert Rg PA-C [facility] 12-06-2023 Note HNO ID: [id number] Author: CT ALLEN, RN Service: ? Author Type: Registered Nurse Type: Progress Notes Filed: 12/07/2023 08:45 Note Text: patient had inr completed at [facility] patients inr is 2.8 (patients inr range is 2.0-3.0) patient is currently taking 10mg Tues,Thurs and 7.5mg all other days patients last dose change was on 08/16/23 due to a high level of 4.0 (dose at that time was 7.5mg Mon,Wed,Sat and 10mg all other days) patient has had no changes in medication and no missed doses and no change in diet Advised patient to continue on the same dose(s) and that they would only be contacted regarding dosage and follow up instructions after review with provider, if a change is needed. Written instructions given and patient verbalized understanding. Presently scheduled in 4 weeks (01/03/24 - pt has appt with pcp first) for follow up INR. [facility] 11-02-2023 Note HNO ID: [id number] Author: Leilani Ferguson PA-C Service: ? Author Type: Physician Alum Plant Supervisor Type: Progress Notes Filed: 11/02/2023 8:12 AM Note Text: I agree: same dosing, recheck 4 weeks. Thanks, Robert Ferguson PA-C [facility] 11-02-2023 History of Presen t illness Narrative I agree: same dosing, recheck 4 weeks. Thanks, Robert Ferguson PA-C patient had inr completed at [facility] patients inr is 2.1 (patients inr range is 2.0-3.0) patient is currently taking 10mg Tues,Thurs and 7.5mg all other days patients last dose change was on 08/16/23 due to a high level of 4.0 (dose at that time was 7.5mg Mon,Wed,Sat and 10mg all other days) patient has had no changes in medication and no missed doses and no change in diet Advised patient to continue on the same dose(s) and that they would only be contacted regarding dosage and follow up instructions after review with provider, if a change is needed. Written instructions given and patient verbalized understanding. Presently scheduled in 1 month (12/06/23) for follow up INR. documented in this encounter [facility] 11-01-2023 Note HNO ID: [id number] Author: Ct Allen RN Service: ? Author Type: ? Type: Progress Notes Filed: 11/02/2023 8:12 AM Note Text: patient had inr completed at [facility] patients inr is 2.1 (patients inr range is 2.0-3.0) patient is currently taking 10mg Tues,Thurs and 7.5mg all other days patients last dose change was on 08/16/23 due to a high level of 4.0 (dose at that time was 7.5mg Mon,Wed,Sat and 10mg all other days) patient has had no changes in medication and no missed doses and no change in diet Advised patient to continue on the same dose(s) and that they would only be contacted regarding dosage and follow up instructions after review with provider, if a change is needed. Written instructions given and patient verbalized understanding. Presently scheduled in 1 month (12/06/23) for follow up INR. [facility] 10-25-2023 Note HNO ID: [id number] Author: Rusty Sierra APRN.AUTOMATIC VULCANIZING OPERATOR Service: ? Author Type: Nurse Practitioner Type: Progress Notes Filed: 10/25/2023 3:08 PM Note Text: vag10/25/2023 Patient presents with: Acute Visit: Yeast Infection, having pain, burning and itching x 2 months, vaginal and rectal area, has taken Clotrimazole, Doxycycline and Prednisone SUBJECTIVE: This is a 78 year old that is here today for Above Complaints. Patient with ongoing redness in ant area. Completed prednisone and doxycyline given to her by [facility]. Has been using lotrimin cream prescribed by [facility]. Vaginal area is burning and itching still.Thinks it may be some better today. Denies vaginal drainage. 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 nystatin-triamcinolone (MYCOLOG) ointment Apply sparingly to perineum twice daily for irritation/infection. warfarin (COUMADIN) 7.5 mg tablet 7.5mg on Mon and Fri and 10mg all other days or as directed by provider . (Patient taking differently: 7.5mg on Mon, Wed, and Fri and 10mg all other days or as directed by provider .) warfarin (COUMADIN) 10 mg tablet 7.5mg Mon, Fri and 10mg all other days or as directed (Patient taking differently: 7.5mg Mon, Wed, Fri and 10mg all other days or as directed) CALCIUM CARB/VIT D3/MINERALS (CALCIUM CARBONATE-VIT D3-MIN) 1,200 mgcalcium -1,000 unit chew Take 1 capsule by mouth once daily. MAGNESIUM CARBONATE ORAL Take 500 mg by mouth once daily. cholecalciferol(VITAMIN D 1,000 UNIT CAP) Take one(1) tablet daily. MULTIVITAMIN TAB Take one(1) tablet daily. No current facility-administered medications for this visit. Medications and allergies reviewed by this provider. SOCIAL HISTORY Social History Tobacco Use Smoking status: Former Packs/day: 1.00 Years: 30.00 Additional pack years: 0.00 Total pack years: 30.00 Types: Cigarettes Quit date: 02/09/1992 Years since quittin.7 Smokeless tobacco: Never Substance Use Topics Alcohol use: Yes Comment: ocassional Drug use: No REVIEW OF SYSTEMS All other reviewed and negative other than HPI. OBJECTIVE: BP 142/80 Pulse 60 Resp 16 Wt 63.3 kg (139 lb 9.6 oz) SpO2 98% BMI 22.36 kg/m? . Vital signs reviewed by this provider. APPEARANCE Well appearing, alert, in no acute distress, well-hydrated, well nourished. FEMALE Mild erythema to ant area. No active vaginal drainage. Vast improvement from when I saw her on 10/07/2023 Fecal Occult Blood due on 07/22/2023 DTaP,Tdap,Td Vaccine(2 - Td or Tdap) due on 07/01/2024 Diabetes Screening due on 07/01/2026 Bone Density Screening Completed Influenza Vaccine Completed Advance Directive Discussion Completed Depression Assessment Completed RSV Vaccine Completed Shingrix Vaccine Completed Covid-19 Vaccine Completed Pneumococcal Vaccine: 65+ Completed Colonoscopy Discontinued ASSESSMENT/PLAN: 1. Itching in the vaginal area - ICD9: 698.1, ICD10: N89.8 (primary diagnosis) - cultures obtained - vast improvement of candidiasis - continue cream for 2 ore weeks - [place]O/TRICHOMONAS NAAT - BACTERIAL VAGINOSIS NAAT - follow-up with PCP if symptoms fail to improve 2. Candidiasis of female genitalia - ICD9: 112.1, ICD10: B37.31 - plan as in #1 - CLOTRIMAZOLE 1 % TOPICAL CREAM Rusty Sierra, PATENT EXAMINER.AUTOMATIC VULCANIZING OPERATOR Prescription instructions reviewed with patient as applicable. Patient advised if symptoms do not improve or if symptoms worsen sooner, to contact their primary care physician. Potential red flag symptoms discussed with the patient. Reviewed appropriate action plan to take if red flag symptoms occur. Patient agreeable to treatment plan. I spent a total of 25 minutes on the date of the service which included preparing to see the patient, [id number] patient care, completing clinical documentation, obtaining and/or reviewing separately obtained history, performing a medically appropriate examination, counseling and educating the patient/family/caregiver, and ordering medications, tests, or procedures. [facility] 10-25-2023 History of Presen t illness Narrative vag10/25/2023 Patient presents with: Acute Visit: Yeast Infection, having pain, burning and itching x 2 months, vaginal and rectal area, has taken Clotrimazole, Doxycycline and Prednisone SUBJECTIVE: This is a 78 year old that is here today for Above Complaints. Patient with ongoing redness in ant area. Completed prednisone and doxycyline given to her by [facility]. Has been using lotrimin cream prescribed by [facility]. Vaginal area is burning and itching still.Thinks it may be some better today. Denies vaginal drainage. 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 nystatin-triamcinolone (MYCOLOG) ointment Apply sparingly to perineum twice daily for irritation/infection. warfarin (COUMADIN) 7.5 mg tablet 7.5mg on Mon and Fri and 10mg all other days or as directed by provider . (Patient taking differently: 7.5mg on Mon, Wed, and Fri and 10mg all other days or as directed by provider .) warfarin (COUMADIN) 10 mg tablet 7.5mg Mon, Fri and 10mg all other days or as directed (Patient taking differently: 7.5mg Mon, Wed, Fri and 10mg all other days or as directed) CALCIUM CARB/VIT D3/MINERALS (CALCIUM CARBONATE-VIT D3-MIN) 1,200 mgcalcium -1,000 unit chew Take 1 capsule by mouth once daily. MAGNESIUM CARBONATE ORAL Take 500 mg by mouth once daily. cholecalciferol(VITAMIN D 1,000 UNIT CAP) Take one(1) tablet daily. MULTIVITAMIN TAB Take one(1) tablet daily. No current facility-administered medications for this visit. Medications and allergies reviewed by this provider. SOCIAL HISTORY Social History Tobacco Use Smoking status: Former Packs/day: 1.00 Years: 30.00 Additional pack years: 0.00 Total pack years: 30.00 Types: Cigarettes Quit date: 02/09/1992 Years since quittin.7 Smokeless tobacco: Never Substance Use Topics Alcohol use: Yes Comment: ocassional Drug use: No REVIEW OF SYSTEMS All other reviewed and negative other than HPI. OBJECTIVE: BP 142/80 Pulse 60 Resp 16 Wt 63.3 kg (139 lb 9.6 oz) SpO2 98% BMI 22.36 kg/m . Vital signs reviewed by this provider. APPEARANCE Well appearing, alert, in no acute distress, well-hydrated, well nourished. FEMALE Mild erythema to ant area. No active vaginal drainage. Vast improvement from when I saw her on 10/07/2023 Fecal Occult Blood due on 07/22/2023 DTaP,Tdap,Td Vaccine(2 - Td or Tdap) due on 07/01/2024 Diabetes Screening due on 07/01/2026 Bone Density Screening Completed Influenza Vaccine Completed Advance Directive Discussion Completed Depression Assessment Completed RSV Vaccine Completed Shingrix Vaccine Completed Covid-19 Vaccine Completed Pneumococcal Vaccine: 65+ Completed Colonoscopy Discontinued ASSESSMENT/PLAN: 1. Itching in the vaginal area - ICD9: 698.1, ICD10: N89.8 (primary diagnosis) - cultures obtained - vast improvement of candidiasis - continue cream for 2 ore weeks - OR[place]O/TRICHOMONAS NAAT - BACTERIAL VAGINOSIS NAAT - follow-up with PCP if symptoms fail to improve 2. Candidiasis of female genitalia - ICD9: 112.1, ICD10: B37.31 - plan as in #1 - CLOTRIMAZOLE 1 % TOPICAL CREAM Rusty Sierra APRN.RAMON Prescription instructions reviewed with patient as applicable. Patient advised if symptoms do not improve or if symptoms worsen sooner, to contact their primary care physician. Potential red flag symptoms discussed with the patient. Reviewed appropriate action plan to take if red flag symptoms occur. Patient agreeable to treatment plan. I spent a total of 25 minutes on the date of the service which included preparing to see the patient, [id number] patient care, completing clinical documentation, obtaining and/or reviewing separately obtained history, performing a medically appropriate examination, counseling and educating the patient/family/caregiver, and ordering medications, tests, or procedures. documented in this encounter [facility] 10-09-2023 Note HNO ID: [id number] Author: Mago Butts APRN.RAMON Service: ? Author Type: Nurse Practitioner Type: Progress Notes Filed: 10/09/2023 9:01 AM Note Text: Subjective Patient came in with complaints of 3 weeks worth of redness burning and itching from the pelvis area all the way back to the rectal area. Patient says it started in the rectal area and has slowly worked its way to the front. Patient says last year she had something similar just in the rectal area and her doctor gave her creams and they went away. Patient said that she has tried the same creams this time to no avail. Patient says it just keeps getting worse. The history is provided by the patient. No speech and language clinician was used. Review of Systems Constitutional: Negative. Skin: Positive for itching and rash. Objective Physical Exam Exam conducted with a damage inside adjuster present. Abdominal: Comments: Erythema located in the area marked above some blanchable some not blanchable Genitourinary: Comments: Redness and irritation within the blue area marked above. Vaginal lives mildly swollen. 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 Nonspecific abnormal results of liver function study Other malaise and fatigue Polymyalgia rheumatica (HCC) Unspecified constipation PAST SURGICAL HISTORY Procedure Laterality Date APPENDECTOMY 1961 OOPHORECTOMY PARTIAL/TOTAL UNI/BI 1970 left OOPHORECTOMY PARTIAL/TOTAL UNI/BI 1986 right PAST SURGICAL HISTORY OF 12-15-07 CT abdomen PAST SURGICAL HISTORY OF 12/29/07 limited U/S abdomen PAST SURGICAL HISTORY OF 1974 hysterectomy PAST SURGICAL HISTORY OF 1987 left mandibular salivary gland removed PAST SURGICAL HISTORY OF 02/11/00 Excise polo's neuroma Right foot ALLERGIES Penicillins MEDICATIONS Pramoxine (PROCTOFOAM) 1 % foam 1 Applicator by RECTAL route every 2 hours as needed. nystatin-triamcinolone (MYCOLOG) ointment Apply sparingly to perineum twice daily for irritation/infection. warfarin (COUMADIN) 7.5 mg tablet 7.5mg on Mon and Fri and 10mg all other days or as directed by provider . (Patient taking differently: 7.5mg on Mon, Wed, and Fri and 10mg all other days or as directed by provider .) warfarin (COUMADIN) 10 mg tablet 7.5mg Mon, Fri and 10mg all other days or as directed (Patient taking differently: 7.5mg Mon, Wed, Fri and 10mg all other days or as directed) CALCIUM CARB/VIT D3/MINERALS (CALCIUM CARBONATE-VIT D3-MIN) 1,200 mgcalcium -1,000 unit chew Take 1 capsule by mouth once daily. MAGNESIUM CARBONATE ORAL Take 500 mg by mouth once daily. cholecalciferol(VITAMIN D 1,000 UNIT CAP) Take one(1) tablet daily. MULTIVITAMIN TAB Take one(1) tablet daily. doxycycline monohydrate 100 mg tablet Take 1 tablet by mouth two times a day for 7 days. predniSONE (DELTASONE) 10 mg tablet Take 4 tabs daily for 3 days, then 2 tabs daily for 3 days, then 1 tab daily for 3 days with food. clotrimazole (LOTRIMIN) 1 % cream Apply 1 application to affected area two times a day for 14 days. Can be used 2-4 weeks...... use for 3 days after area is completley healed up. FAMILY HISTORY Problem Relation Age of Onset Colon Cancer Father Diabetes Father Coronary Artery Disease Father Cancer Brother brother Stroke Maternal Grandfather Diabetes Son No Known Problems Son Social History Tobacco Use Smoking status: Former Packs/day: 1.00 Years: 30.00 Additional pack years: 0.00 Total pack years: 30.00 Types: Cigarettes Quit date: 02/09/1992 Years since quittin.6 Smokeless tobacco: Never Substance Use Topics Alcohol use: Yes Comment: ocassional Drug use: No PAST MEDICAL HISTORY Diagnosis Date DVT (deep venous thrombosis) (HCC) Elevated blood pressure reading without diagnosis of hypertension 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 Macroglobulinemia (HCC) 07/09/2008 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 Nonspecific abnormal results of liver function study Other malaise and fatigue Polymyalgia rheumatica (HCC) Unspecified constipation PAST SURGICAL HISTORY Procedure Laterality Date APPENDECTOMY 1961 OOPHORECTOMY PARTIAL/TOTAL UNI/BI 1971 left OOPHORECTOMY PARTIAL/TOTAL UNI/BI 1986 right PAST SURGICAL HISTORY OF 12-15-07 CT abdomen PAST SURGICAL HISTORY OF 12/29/07 limited U/S abdomen PAST SURGICAL HISTORY OF 1974 hysterectomy PAST SURGICAL HISTORY OF 1987 left mandibular salivary gland removed PAST SURGICAL HISTORY OF 02/11/00 Excise polo's neuroma Right foot ALLERGIES Penicillins MEDICATIONS Pramoxine (PROCTOFOAM) 1 % foam 1 Applicator by RECTAL route every 2 hours as needed. nystatin-triamcinolone (MYCOLOG) ointment Apply sparingly to perineum twice daily for irritation/infection. (more content not included)... [facility] 10-09-2023 History of Presen t illness Narrative Images from the original note were not included. Subjective Patient came in with complaints of 3 weeks worth of redness burning and itching from the pelvis area all the way back to the rectal area. Patient says it started in the rectal area and has slowly worked its way to the front. Patient says last year she had something similar just in the rectal area and her doctor gave her creams and they went away. Patient said that she has tried the same creams this time to no avail. Patient says it just keeps getting worse. The history is provided by the patient. No speech and language clinician was used. Review of Systems Constitutional: Negative. Skin: Positive for itching and rash. Objective Physical Exam Exam conducted with a damage inside adjuster present. Abdominal: Comments: Erythema located in the area marked above some blanchable some not blanchable Genitourinary: Comments: Redness and irritation within the blue area marked above. Vaginal lives mildly swollen. 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 Nonspecific abnormal results of liver function study Other malaise and fatigue Polymyalgia rheumatica (HCC) Unspecified constipation PAST SURGICAL HISTORY Procedure Laterality Date APPENDECTOMY 1961 OOPHORECTOMY PARTIAL/TOTAL UNI/BI 1971 left OOPHORECTOMY PARTIAL/TOTAL UNI/BI 1986 right PAST SURGICAL HISTORY OF 12-15-07 CT abdomen PAST SURGICAL HISTORY OF 12/29/07 limited U/S abdomen PAST SURGICAL HISTORY OF 1974 hysterectomy PAST SURGICAL HISTORY OF 1987 left mandibular salivary gland removed PAST SURGICAL HISTORY OF 02/11/00 Excise polo's neuroma Right foot ALLERGIES Penicillins MEDICATIONS Pramoxine (PROCTOFOAM) 1 % foam 1 Applicator by RECTAL route every 2 hours as needed. nystatin-triamcinolone (MYCOLOG) ointment Apply sparingly to perineum twice daily for irritation/infection. warfarin (COUMADIN) 7.5 mg tablet 7.5mg on Mon and Fri and 10mg all other days or as directed by provider . (Patient taking differently: 7.5mg on Mon, Wed, and Fri and 10mg all other days or as directed by provider .) warfarin (COUMADIN) 10 mg tablet 7.5mg Mon, Fri and 10mg all other days or as directed (Patient taking differently: 7.5mg Mon, Wed, Fri and 10mg all other days or as directed) CALCIUM CARB/VIT D3/MINERALS (CALCIUM CARBONATE-VIT D3-MIN) 1,200 mgcalcium -1,000 unit chew Take 1 capsule by mouth once daily. MAGNESIUM CARBONATE ORAL Take 500 mg by mouth once daily. cholecalciferol(VITAMIN D 1,000 UNIT CAP) Take one(1) tablet daily. MULTIVITAMIN TAB Take one(1) tablet daily. doxycycline monohydrate 100 mg tablet Take 1 tablet by mouth two times a day for 7 days. predniSONE (DELTASONE) 10 mg tablet Take 4 tabs daily for 3 days, then 2 tabs daily for 3 days, then 1 tab daily for 3 days with food. clotrimazole (LOTRIMIN) 1 % cream Apply 1 application to affected area two times a day for 14 days. Can be used 2-4 weeks...... use for 3 days after area is completley healed up. FAMILY HISTORY Problem Relation Age of Onset Colon Cancer Father Diabetes Father Coronary Artery Disease Father Cancer Brother brother Stroke Maternal Grandfather Diabetes Son No Known Problems Son Social History Tobacco Use Smoking status: Former Packs/day: 1.00 Years: 30.00 Additional pack years: 0.00 Total pack years: 30.00 Types: Cigarettes Quit date: 02/09/1992 Years since quittin.6 Smokeless tobacco: Never Substance Use Topics Alcohol use: Yes Comment: ocassional Drug use: No PAST MEDICAL HISTORY Diagnosis Date DVT (deep venous thrombosis) (HCC) Elevated blood pressure reading without diagnosis of hypertension 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 Macroglobulinemia (HCC) 07/09/2008 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 Nonspecific abnormal results of liver function study Other malaise and fatigue Polymyalgia rheumatica (HCC) Unspecified constipation PAST SURGICAL HISTORY Procedure Laterality Date APPENDECTOMY 1961 OOPHORECTOMY PARTIAL/TOTAL UNI/BI 1971 left OOPHORECTOMY PARTIAL/TOTAL UNI/BI 1986 right PAST SURGICAL HISTORY OF 12-15-07 CT abdomen PAST SURGICAL HISTORY OF 12/29/07 limited U/S abdomen PAST SURGICAL HISTORY OF 1974 hysterectomy PAST SURGICAL HISTORY OF 1987 left mandibular salivary gland removed PAST SURGICAL HISTORY OF 02/11/00 Excise polo's neuroma Right foot ALLERGIES Penicillins MEDICATIONS Pramoxine (PROCTOFOAM) 1 % foam 1 Applicator by RECTAL route every 2 hours as needed. nystatin-triamcinolone (MYCOLOG) ointment Apply sparingly to perineum twice daily for irritation/infection. warfarin (COUMADIN) 7.5 mg tablet 7.5mg on Mon and Fri and 10mg all other days or as directed by provider . (Patient taking differently: 7.5mg on Mon, Wed, and Fri and 10mg all other days or as directed by provider .) warfarin (COUMADIN) 10 mg tablet 7.5mg Mon, Fri and 10mg all other days or as directed (Patient taking differently: 7.5mg Mon, Wed, Fri and 10mg all other days or as directed) CALCIUM CARB/VIT D3/MINERALS (CALCIUM CARBONATE-VIT D3-MIN) 1,200 mgcalcium -1,000 unit chew Take 1 capsule by mouth once daily. MAGNESIUM CARBONATE ORAL Take 500 mg by mouth once daily. cholecalciferol(VITAMIN D 1,000 UNIT CAP) Take one(1) tablet daily. MULTIVITAMIN TAB Take one(1) tablet daily. doxycycline monohydrate 100 mg tablet Take 1 tablet by mouth two times a day for 7 days. predniSONE (DELTASONE) 10 mg tablet Take 4 tabs daily for 3 days, then 2 tabs daily for 3 days, then 1 tab daily for 3 days with food. clotrimazole (LOTRIMIN) 1 % cream Apply 1 application to affected area two times a day for 14 days. Can be used 2-4 weeks...... use for 3 days after area is completley healed up. FAMILY HISTORY Problem Relation Age of Onset Colon Cancer Father Diabetes Father Coronary Artery Disease Father Cancer Brother brother Stroke Maternal Grandfather Diabetes Son No Known Problems Son Social History Tobacco Use Smoking status: Former Packs/day: 1.00 Years: 30.00 Additional pack years: 0.00 Total pack years: 30.00 Types: Cigarettes Quit date: 02/09/1992 Years since quittin.6 Smokeless tobacco: Never Substance Use Topics Alcohol use: Yes Comment: ocassional Drug use: No ASSESSMENT/PLAN: 1. Rash - ICD9: 782.1, ICD10: R21 - DOXYCYCLINE MONOHYDRATE 100 MG TABLET - PREDNISONE 10 MG TABLET - CLOTRIMAZOLE 1 % TOPICAL CREAM She was educated about proper use of medication and supportive therapies will follow-up in a week or so if signs and symptoms seem to be getting worse not better. Patient was okay with this care plan. Mago Butts APRN.RAMON documented in this encounter [facility] 10-07-2023 Note HNO ID: [id number] Author: Rusty Sierra APRN.CNP Service: ? Author Type: Nurse Practitioner Type: Progress Notes Filed: 10/07/2023 12:13 PM Note Text: 10/07/2023 Patient presents with: Rash: Yeast infection vaginally spreading to lower abdomen AND rectum area x 3 weeks SUBJECTIVE: This is a 78 year old that is here today for Above Complaints.. Three weeks ago started with recta/vaginal yeast infection. Used OTC vaginal for seven days with no improvement. Prescribed diflucan tablet, Mycolog Cream, and Proctofoam which she reports took care of it in the past. Concerned she has not seen any improvement. 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 nystatin-triamcinolone (MYCOLOG) ointment Apply sparingly to perineum twice daily for irritation/infection. warfarin (COUMADIN) 7.5 mg tablet 7.5mg on Mon and Fri and 10mg all other days or as directed by provider . (Patient taking differently: 7.5mg on Mon, Wed, and Fri and 10mg all other days or as directed by provider .) warfarin (COUMADIN) 10 mg tablet 7.5mg Mon, Fri and 10mg all other days or as directed (Patient taking differently: 7.5mg Mon, Wed, Fri and 10mg all other days or as directed) CALCIUM CARB/VIT D3/MINERALS (CALCIUM CARBONATE-VIT D3-MIN) 1,200 mgcalcium -1,000 unit chew Take 1 capsule by mouth once daily. MAGNESIUM CARBONATE ORAL Take 500 mg by mouth once daily. cholecalciferol(VITAMIN D 1,000 UNIT CAP) Take one(1) tablet daily. MULTIVITAMIN TAB Take one(1) tablet daily. No current facility-administered medications for this visit. Medications and allergies reviewed by this provider. SOCIAL HISTORY Social History Tobacco Use Smoking status: Former Packs/day: 1.00 Years: 30.00 Additional pack years: 0.00 Total pack years: 30.00 Types: Cigarettes Quit date: 02/09/1992 Years since quittin.6 Smokeless tobacco: Never Substance Use Topics Alcohol use: Yes Comment: ocassional Drug use: No REVIEW OF SYSTEMS All other reviewed and negative other than HPI. OBJECTIVE: BP 138/70 Pulse 88 Resp 16 Wt 63 kg (139 lb) SpO2 96% BMI 22.27 kg/m? . Vital signs reviewed by this provider. APPEARANCE Well appearing, alert, in no acute distress, well-hydrated, well nourished. FEMALE Ant-anal area with diffuse confluent area of excoriation suspicious for [place]. No vaginal discharge observed. Deferred internal vaginal exam. Small non-thrombosed hemorrhoid and approximately at the noon position. Fecal Occult Blood due on 07/22/2023 DTaP,Tdap,Td Vaccine(2 - Td or Tdap) due on 07/01/2024 Diabetes Screening due on 07/01/2026 Bone Density Screening Completed Influenza Vaccine Completed Advance Directive Discussion Completed Depression Assessment Completed RSV Vaccine Completed Shingrix Vaccine Completed Covid-19 Vaccine Completed Pneumococcal Vaccine: 65+ Completed Colonoscopy Discontinued ASSESSMENT/PLAN: 1. Candidiasis of perineum - ICD9: 112.2, ICD10: B37.49 (primary diagnosis) - discussed with patient this may take time to resolve and should see improvement over the next couple of weeks - continue the Mycolog as prescribed - may use cool compress or sitz bath for relief, however we discussed the importance of thoroughly drying the area - follow-up if symptoms fail to improve 2. External hemorrhoid - ICD9: 455.3, ICD10: K64.4 - non-thrombosed - may use proctofoam for itching, however we discussed this is only for the hemorrhoid not the candidiasis, verbalizes understanding - increase fiber in diet and may use sitz bath as well - follow-up if symptoms persist to ER with severe pain or rectal bleeding Rusty Podlogar, PATENT EXAMINER.AUTOMATIC VULCANIZING OPERATOR Prescription instructions reviewed with patient as applicable. Patient advised if symptoms do not improve or if symptoms worsen sooner, to contact their primary care physician. Potential red flag symptoms discussed with the patient. Reviewed appropriate action plan to take if red flag symptoms occur. Patient agreeable to treatment plan. I spent a total of 25 minutes on the date of the service which included preparing to see the patient, [id number] patient care, completing clinical documentation, obtaining and/or reviewing separately obtained history, performing a medically appropriate examination, counseling and educating the patient/family/caregiver, and ordering medications, tests, or proced (more content not included)... [facility] 10-05-2023 Note HNO ID: [id number] Author: Leilain Ferguson PA-C Service: ? Author Type: Physician Alum Plant Supervisor Type: Progress Notes Filed: 10/05/2023 4:23 PM Note Text: Agree: same dosing, recheck 4 weeks Robert Rg PA-C [facility] 10-05-2023 History of Presen t illness Narrative Agree: same dosing, recheck 4 weeks Robert Rg PA-C patient had inr completed at [facility] patients inr is 2.2 (patients inr range is 2.0-3.0) patient is currently taking 10mg Tues,Thurs, and 7.5mg all other days patients last dose change was on 08/16/23 due to a high level of 4.0 (dose at that time was 7.5mg Mon,Wed,Sat and and 10mg all other days) patient has had no changes in medication and no missed doses and no change in diet Advised patient to continue on the same dose(s) and that they would only be contacted regarding dosage and follow up instructions after review with provider, if a change is needed. Written instructions given and patient verbalized understanding. Presently scheduled in 4 weeks (11/01/23) for follow up INR. documented in this encounter [facility] 10-04-2023 Miscellaneous Notes The following approved medication requests have been transmitted electronically. Requested Prescriptions Signed Prescriptions Disp Refills Pramoxine (PROCTOFOAM) 1 % foam 10 g 2 Si Applicator by RECTAL route every 2 hours as needed. nystatin-triamcinolone (MYCOLOG) ointment 30 g 0 Sig: Apply sparingly to perineum twice daily for irritation/infection. fluconazole (DIFLUCAN) 150 mg tablet 1 tablet 0 Sig: Take 1 tablet by mouth once daily for 1 day. Leilani Ferguson PA-C documented in this encounter [facility] 10-04-2023 Note HNO ID: [id number] Author: tC Allen RN Service: ? Author Type: ? Type: Progress Notes Filed: 10/05/2023 4:23 PM Note Text: patient had inr completed at [facility] patients inr is 2.2 (patients inr range is 2.0-3.0) patient is currently taking 10mg Tues,Thurs, and 7.5mg all other days patients last dose change was on 08/16/23 due to a high level of 4.0 (dose at that time was 7.5mg Mon,Wed,Sat and and 10mg all other days) patient has had no changes in medication and no missed doses and no change in diet Advised patient to continue on the same dose(s) and that they would only be contacted regarding dosage and follow up instructions after review with provider, if a change is needed. Written instructions given and patient verbalized understanding. Presently scheduled in 4 weeks (11/01/23) for follow up INR. [facility] 09-20-2023 Note HNO ID: [id number] Author: Mary Mancilla Mammo Tech Service: ? Author Type: Mapping Editor Type: Progress Notes Filed: 09/20/2023 7:52 AM Note Text: Radiology Service Progress Note PATIENT NAME: Telma Gomes DATE OF SERVICE: September 20, 2023 TIME: 7:38 AM PATIENT IDENTITY VERIFICATION COMPLETED USING TWO (2) IDENTIFIERS: Name and Date of confirmed by patient verbally. FALL SCREENING: Has the patient had 2 falls in the last year or 1 fall with injury or currently using an Ambulatory Assistive Device (Walker, Cane, Wheelchair, Crutches, etc.)? No PATIENT GENDER DATA: Female. status: : No status: NO. PATIENT RELEVANT IMPLANT DATA REVIEWED: Not Applicable RADIOLOGY DEPARTMENT: Mammography PERIPHERAL IV DATA: Not applicable SIGNED BY: Mary Mancilla [employer] September 20, 2023 7:38 AM [facility] 09-20-2023 Miscellaneous Notes September 20, 2023 PID: [id number] Telma Gomes [address] [facility] [address] [place] [address] Dear Ms. Gomes, We are pleased to inform you that the results of your recent breast imaging exam on 09/20/2023 are normal. Early detection of cancer is very important. We also understand recommendations regarding breast cancer screening are controversial. Please discuss with your primary care provider which strategy is best for you and whether a mammogram is right for you. Your imaging studies and report will be kept on file at [facility] as part of your permanent medical record and are available for your continuing care. Thank you for allowing us to help in meeting your health care needs. Sincerely, Dr. Ponce Interpreting Radiologist [facility] (Normal over 40) documented in this encounter [facility] 09-20-2023 History of Presen t illness Narrative Radiology Service Progress Note PATIENT NAME: Telma Gomes DATE OF SERVICE: September 20, 2023 TIME: 7:38 AM PATIENT IDENTITY VERIFICATION COMPLETED USING TWO (2) IDENTIFIERS: Name and Date of confirmed by patient verbally. FALL SCREENING: Has the patient had 2 falls in the last year or 1 fall with injury or currently using an Ambulatory Assistive Device (Walker, Cane, Wheelchair, Crutches, etc.)? No PATIENT GENDER DATA: Female. status: : No status: NO. PATIENT RELEVANT IMPLANT DATA REVIEWED: Not Applicable RADIOLOGY DEPARTMENT: Mammography PERIPHERAL IV DATA: Not applicable SIGNED BY: Mary Mancilla [employer] September 20, 2023 7:38 AM documented in this encounter [facility] 09-07-2023 Note HNO ID: [id number] Author: Leilani Ferguson PA-C Service: ? Author Type: Physician Alum Plant Supervisor Type: Progress Notes Filed: 09/07/2023 8:06 AM Note Text: Agree, same dose, 4 weeks Robert Rg PA-C [facility] 09-07-2023 History of Presen t illness Narrative Agree, same dose, 4 weeks Robert Rg PA-C patient had inr completed at [facility] patients inr is 2.3 (patients inr range is 2.0-3.0) patient is currently taking 10mg Tues,Thurs and 7.5mg all other days patients last dose change was on 08/16/23 due to a high level of 4.0 (dose at that time was 7.5mg Mon,Wed,Sat and 10mg all other days) patient has had no changes in medication and no missed doses and no change in diet Advised patient to continue on the same dose(s) and that they would only be contacted regarding dosage and follow up instructions after review with provider, if a change is needed. Written instructions given and patient verbalized understanding. Presently scheduled in 4 weeks (10/04/23) for follow up INR. documented in this encounter [facility] 09-06-2023 Note HNO ID: [id number] Author: Ct Allen RN Service: ? Author Type: ? Type: Progress Notes Filed: 09/07/2023 8:06 AM Note Text: patient had inr completed at [facility] patients inr is 2.3 (patients inr range is 2.0-3.0) patient is currently taking 10mg Tues,Thurs and 7.5mg all other days patients last dose change was on 08/16/23 due to a high level of 4.0 (dose at that time was 7.5mg Mon,Wed,Sat and 10mg all other days) patient has had no changes in medication and no missed doses and no change in diet Advised patient to continue on the same dose(s) and that they would only be contacted regarding dosage and follow up instructions after review with provider, if a change is needed. Written instructions given and patient verbalized understanding. Presently scheduled in 4 weeks (10/04/23) for follow up INR. [facility] 08-25-2023 Note HNO ID: [id number] Author: Leilani Ferguson PA-C Service: ? Author Type: Physician Alum Plant Supervisor Type: Progress Notes Filed: 08/25/2023 1:08 PM Note Text: Agree with recommendation Same dose, 2 weeks. Robert Rg PA-C [facility] 08-23-2023 Note HNO ID: [id number] Author: Ct Allen RN Service: ? Author Type: ? Type: Progress Notes Filed: 08/25/2023 1:08 PM Note Text: patient had inr completed at [facility] patients inr is 1.8 (patients inr range is 2.0-3.0) patient is currently taking 10mg Tues,Thurs and 7.5mg all other days patients last dose change was on 08/16/23 due to a high level of 4.0 (dose at that time was 7.5mg Mon,Wed,Sat and 10mg all other days) patient has had no changes in medication except for coumadin and patient missed one dose and no change in diet Advised patient to continue on the same dose(s) and that they would only be contacted regarding dosage and follow up instructions after review with provider, if a change is needed. Written instructions given and patient verbalized understanding. Presently scheduled in 2 weeks (09/06/23) for follow up INR since low level could be due to the missed dose [facility] 08-17-2023 Miscellaneous Notes Patient notified order is in, verbalized understanding. Get Medical Advice on 08/17/23 AUGUSTINE SCREENING Robert Rg PA-C Please file order Steff Garcia Ma documented in this encounter [facility] 08-16-2023 Note HNO ID: [id number] Author: Ct Allen RN Service: ? Author Type: ? Type: Progress Notes Filed: 08/16/2023 3:30 PM Note Text: PATIENT NOTIFIED OF INFORMATION [facility] 08-16-2023 History of Presen t illness Narrative PATIENT NOTIFIED OF INFORMATION Agree with rec Robert Rg PA-C patient had inr completed at [facility] patients inr is 4.0 (patients inr range is 2.0-3.0) patient is currently taking 7.5mg Mon,Wed,Sat and 10mg all other days patients last dose change was on 03/15/23 due to a high level of 3.6 (dose at that time was 7.5mg Mon,Fri and 10mg all other days) patient has had no changes in medication and no missed doses and no change in diet recommend: patient hold coumadin today and restart tomorrow on dosing pattern of 10mg Tues,Thurs and 7.5mg all other days and recheck inr in 1 week patient has been scheduled for a 1 week follow up inr on 08/23/23 please review and advise on recommendation documented in this encounter [facility] 08-16-2023 Note HNO ID: [id number] Author: Leilani Ferguson PA-C Service: ? Author Type: Physician Alum Plant Supervisor Type: Progress Notes Filed: 08/16/2023 12:50 PM Note Text: Agree with rec Thanks, Robert Ferguson PA-C [facility] 08-16-2023 Note HNO ID: [id number] Author: Ct Allen RN Service: ? Author Type: ? Type: Progress Notes Filed: 08/16/2023 12:50 PM Note Text: patient had inr completed at [facility] patients inr is 4.0 (patients inr range is 2.0-3.0) patient is currently taking 7.5mg Mon,Wed,Sat and 10mg all other days patients last dose change was on 03/15/23 due to a high level of 3.6 (dose at that time was 7.5mg Mon,Fri and 10mg all other days) patient has had no changes in medication and no missed doses and no change in diet recommend: patient hold coumadin today and restart tomorrow on dosing pattern of 10mg Tues,Thurs and 7.5mg all other days and recheck inr in 1 week patient has been scheduled for a 1 week follow up inr on 08/23/23 please review and advise on recommendation [facility] 08-06-2023 Miscellaneous Notes Recall letter entered due to scheduling not out for 2024 Patient aware of all information. PSS- please contact patient to schedule/recall letter. Kate Hough LPN; Can let her know that the additional lab work shows that the protein level is stable. Can schedule for CBC/CMP/myeloma labs/serum viscosity followed by office visit in about 2 years. Sarwat Dee DO documented in this encounter [facility] 08-04-2023 Note HNO ID: [id number] Author: Sarwat Dee DO Service: ? Author Type: Physician Type: Progress Notes Filed: 08/04/2023 9:45 AM Note Text: Diagnosis: 1) IgM MGUS. HPI: The patient is a 73 yo female with h/o IgM MGUS. 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 Diagnosed with acute DVT spring 2017. Unprovoked. Was anticoagulated with Xarelto that caused rather severe MS pain--right shoulder, across lower abdomen and neck. Was changed to Coumadin. Presents for ongoing oncologic management. Interim history: No complaints today. No MS pain. No symptoms of sensory neuropathy. Normal appetite. No symptoms of hyperviscosity. PMH, medications and allergies personally reviewed by me today. Any changes documented in appropriate section. ROS: Constitutional: See above. Neuro: Denies POLANCO, vertigo and imbalance. HEENT: No recent change in voice, vision or hearing. Resp: Denies cough, wheeze and hemoptysis. No shortness of breath at rest. No LARSON. CVS: Denies exertional chest pain, PND, orthopnea and LE edema. GI: Denies symptoms of dysgeusia, odynophagia and dysphagia. No reflux. No nausea or vomiting. Bowels worked normally. : No dysuria or gross hematuria. No symptoms of bladder outlet obstruction. Endo: No hot flashes. Musculoskeletal: See above. Derm: No rash. Heme: See above. Psych: Normal mood. PHYSICAL EXAM: Vitals: Blood pressure 135/75, pulse 72, temperature 36.2 ?C (97.2 ?F), temperature source Temporal, height 168.3 cm (5' 6.25 ), weight 63.3 kg (139 lb 8 oz), SpO2 98 %. Well-appearing and in no acute distress. EYES: Sclerae are anicteric bilaterally. LYMPHATIC: There is no palpable cervical, supraclavicular or axillary adenopathy. RESPIRATORY: Inspiratory breath sounds are of normal intensity in all yao. No rales, wheezes or rhonchi. Expiratory phase is normal. CARDIOVASCULAR: Rhythm is regular. Normal intensity S1/S2. ABDOMEN: The abdomen is nondistended. There is no organomegaly. No tenderness. Extremities: Free of edema. SKIN: No jaundice or rash. No petechiae. NEUROLOGIC: rice milling supervisor II-XII are grossly intact. No focal motor weakness. MUSCULOSKELETAL: No joint swelling or tenderness. LABS: Component Latest Ref Rng AND Units 08/11/2021 WBC 3.70 - 11.00 k/uL 7.05 RBC 3.90 - 5.20 m/uL 4.27 Hemoglobin 11.5 - 15.5 g/dL 12.8 Hematocrit 36.0 - 46.0 % 39.9 MCV 80.0 - 100.0 fL 93.4 MCH 26.0 - 34.0 pG 30.0 MCHC 30.5 - 36.0 g/dL 32.1 RDW-CV 11.5 - 15.0 % 14.7 Platelet Count 150 - 400 k/uL 272 MPV 9.0 - 12.7 fL 9.9 Neut% % 65.7 Abs Neut (ANC) 1.45 - 7.50 k/uL 4.61 Lymph% % 19.0 Abs Lymph 1.00 - 4.00 k/uL 1.34 Davison% % 13.6 Abs Davison <0.87 k/uL 0.96 (H) Eosin% % 1.0 Abs Eosin <0.46 k/uL 0.07 Baso% % 0.7 Abs Baso <0.11 k/uL 0.05 Nucleated Reds 0 /100 WBC 0.0 Absolute nRBC <0.01 k/uL <0.01 Diff Type Auto Diff Protein, Total 6.3 - 8.0 g/dL 7.1 Albumin 3.9 - 4.9 g/dL 4.3 Calcium 8.5 - 10.2 mg/dL 9.7 Bilirubin, Total 0.2 - 1.3 mg/dL 0.3 Alkaline Phosphatase 34 - 123 U/L 82 AST 13 - 35 U/L 33 Glucose 74 - 99 mg/dL 92 BUN 7 - 21 mg/dL 13 Creatinine 0.58 - 0.96 mg/dL 0.66 Sodium 136 - 144 mmol/L 139 Potassium 3.7 - 5.1 mmol/L 4.2 Chloride 97 - 105 mmol/L 102 CO2 22 - 30 mmol/L 23 Anion Gap 9 - 18 mmol/L 14 ALT 7 - 38 U/L 21 eGFR- >60 eGFR-All Other Races . >60 B2 Microglobulin <3.1 mg/L 2.3 Viscosity, Serum 1.3 - 1.8 Test performed [place] [email or web address] Component Latest Ref Rng AND Units 06/09/2011 05/02/2013 08/01/2015 08/03/2017 05/27/2018 08/11/2019 08/11/2021 Protein, Total 6.3 - 8.0 g/dL 6.9 6.8 6.6 7.0 7.2 6.8 7.2 Albumin 3.80 - 5.00 gm/dL 4.34 Alpha 1 Globulin 0.18 - 0.31 gm/dL 0.17 0.24 0.22 0.28 0.29 0.30 0.30 Alpha 2 Globulin 0.52 - 0.97 gm/dL 0.81 0.73 0.75 0.83 0.94 0.95 0.84 Beta Globulin 0.84 - 1.36 gm/dL 0.59 0.84 0.79 (L) 0.86 0.86 0.92 0.90 Gamma Globulin 0.70 - 1.44 gm/dL 0.99 1.18 1.18 1.35 1.45 (H) 1.34 1.58 (H) Interpretation (Prot Electro) An M protein is identified on protein electrophoresis. . . . An M protein is identified on protein electrophoresis. . . . SEE COMMENT SEE COMMENT SEE COMMENT SEE COMMENT SEE COMMENT M-Protein Location Gamma fraction Gamma fraction Gamma fraction Gamma fraction Gamma fraction Gamma fraction Gamma fraction M-Protein Concentration 0.00 gm/dL 0.56 0.55 (H) 0.56 (H) 0.71 (H) 0.69 (H) 0.74 (H) 0.88 (H) SPE Staff Review Reviewed by Twin Guevara MD. Reviewed by Mahamed Vences M.D. ([id number]) Reviewed by Ritu Pritchett MD ([id number]) Reviewed by Rolo Singletary M.D., PhD ([id number]) Reviewed by Shweta Alonzo MD ([id number]) Reviewed by Philip Muller MD. ([id number]) Reviewed by Bonny Robertson MD ([id number]) Albumin 3.37 - 4.23 gm/dL 3.80 3.67 3.68 3.66 3.28 (L) 3.59 MPA IgG, Serum 700 - 1,600 mg/dL 637 (L) 717 MPA IgA, Serum 70 - 400 mg/dL 38 (L) 38 (L) MPA IgM, Serum 40 - 230 mg/dL 1,060 (H) 1,171 (H) Ama (more content not included)... [facility] 07-12-2023 Note HNO ID: [id number] Author: Leilani Ferguson PA-C Service: ? Author Type: Physician Alum Plant Supervisor Type: Progress Notes Filed: 07/12/2023 1:04 PM Note Text: Same dose, 4 weeks Robert Rg PA-C [facility] 07-12-2023 History of Presen t illness Narrative Same dose, 4 weeks Robert Rg PA-C patient had inr completed at [facility] patients inr is 2.4 (patients inr range is 2.0-3.0) patient is currently taking 7.5mg Mon,Wed,Sat and 10mg all other days patients last dose change was on 03/15/23 due to a high level of 3.6 (dose at that time was 7.5mg Mon,Fri and 10mg all other days) patient has had no changes in medication and no missed doses and no change in diet Advised patient to continue on the same dose(s) and that they would only be contacted regarding dosage and follow up instructions after review with provider, if a change is needed. Written instructions given and patient verbalized understanding. Presently scheduled in 1 month (07/16/23) for follow up INR. documented in this encounter [facility] 07-12-2023 Note HNO ID: [id number] Author: Ct Allen RN Service: ? Author Type: ? Type: Progress Notes Filed: 07/12/2023 1:04 PM Note Text: patient had inr completed at [facility] patients inr is 2.4 (patients inr range is 2.0-3.0) patient is currently taking 7.5mg Mon,Wed,Sat and 10mg all other days patients last dose change was on 03/15/23 due to a high level of 3.6 (dose at that time was 7.5mg Mon,Fri and 10mg all other days) patient has had no changes in medication and no missed doses and no change in diet Advised patient to continue on the same dose(s) and that they would only be contacted regarding dosage and follow up instructions after review with provider, if a change is needed. Written instructions given and patient verbalized understanding. Presently scheduled in 1 month (07/16/23) for follow up INR. [facility] 07-01-2023 Note HNO ID: [id number] Author: Leilani Ferguson PA-C Service: ? Author Type: Physician Alum Plant Supervisor Type: Progress Notes Filed: 07/01/2023 12:32 PM Note Text: 77 year old female with c/o here for follow up Doing well, no concerns. Pmr (polymyalgia rheumatica) ([facility]) (primary encounter diagnosis) Currently off steroids Still doing well off steroids. Igm monoclonal gammopathy of uncertain significance Macroglobulinemia (hcc) 08/18/[address] Dee: recommended reevaluation in 2 years Notes some increased tingling in lower extremities Osteopenia, senile Disorder of bone and cartilage Hx of steroid therapy Current medications: Calcium-vit D 3 1200mg-1000u chew daily 09/09/2022 DXA scan comparison 08/25/2016: t-scores LS: -2.3, 6.7% decrease; LH: -1.4,. 1.4% decrease; LFN:-1.2. 0.5% decrease; RH:-1.6. 3.9% decrease; RFN: -1.5 3.6%decrease. FRAX: Major osteoporotic fracture risk 11%, Hip fracture risk 2.5% Elevated blood sugar Hemoglobin A1C (%) Date Value 06/23/2023 5.8 07/21/2022 5.8 08/11/2021 5.7 08/29/2020 6.0 ) Deep vein thrombosis (dvt) of distal vein of lower extremity, unspecified chronicity, unspecified laterality (hcc) long term care phlebotomist current use of anticoagulant therapy Current medications: Warfarin 7.5mg as directec Maintaining therapeutic levels Polyarthritis Mobility impaired Feels arthritis has improved quite a bit with regular exercise she has been doing Feels no significant issues. No falls. Cervicalgia: left neck pain: Currently no pain, Did see chiropractor Dr. James 3 times which did help but not as much as OMT here. . 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 Nonspecific abnormal results of liver function study Other malaise and fatigue Polymyalgia rheumatica (HCC) Unspecified constipation PAST SURGICAL HISTORY Procedure Laterality Date APPENDECTOMY 1961 OOPHORECTOMY PARTIAL/TOTAL UNI/BI 1970 left OOPHORECTOMY PARTIAL/TOTAL UNI/BI 1985 right PAST SURGICAL HISTORY OF 12-15-07 CT abdomen PAST SURGICAL HISTORY OF 12/29/07 limited / abdomen PAST SURGICAL HISTORY OF 1974 hysterectomy PAST SURGICAL HISTORY OF 1987 left mandibular salivary gland removed PAST SURGICAL HISTORY OF 02/11/00 Excise polo's neuroma Right foot Social History Tobacco Use Smoking status: Former Packs/day: 1.00 Years: 30.00 Total pack years: 30.00 Types: Cigarettes Quit date: 02/09/1992 Years since quittin.4 Smokeless tobacco: Never Substance Use Topics Alcohol use: Yes Comment: ocassional Drug use: No ACTIVE PROBLEM LIST Asymptomatic Postmenopausal Status (Age-Related) (Natural) Macroglobulinemia (Hcc) Igm Monoclonal Gammopathy of Uncertain Significance Family History of Colon Cancer in Father Dvt (Deep Venous Thrombosis) (Hcc) Pmr (Polymyalgia Rheumatica) (Hcc) Osteopenia, Senile Current Outpatient Medications Medication Sig Dispense Refill warfarin (COUMADIN) 7.5 mg tablet 7.5mg on Mon and Fri and 10mg all other days or as directed by provider . 90 tablet 3 warfarin (COUMADIN) 10 mg tablet 7.5mg Mon, Fri and 10mg all other days or as directed 30 tablet 5 CALCIUM CARB/VIT D3/MINERALS (CALCIUM CARBONATE-VIT D3-MIN) 1,200 mgcalcium -1,000 unit chew Take 1 capsule by mouth once daily. MAGNESIUM CARBONATE ORAL Take 500 mg by mouth once daily. cholecalciferol(VITAMIN D 1,000 UNIT CAP) Take one(1) tablet daily. 0 MULTIVITAMIN TAB Take one(1) tablet daily. 0 No current facility-administered medications for this visit. DTAP,TDAP,TD(2 - Td or Tdap) due on 06/22/2022 ADVANCE DIRECTIVE DISCUSSION due on 11/29/2022 COVID-19 VACCINE(6 - Pfizer series) due on 12/07/2022 FECAL OCCULT BLOOD due on 07/22/2023 EXAM: BP 130/72 Pulse 71 Resp 16 Wt 63 kg (139 lb) SpO2 97% BMI 22.08 kg/m? Pleasant well appearing older woman in no acute distress. Alert and oriented all spheres. Normal affect and cognition. Speech normal. No deficits to learning or comprehension. Skin warm, dry, pink to lips and nailbeds. Normal turgor. Respirations regular and unlabored. HEENT: NCAT. No scleral icterus or conjunctival injection. TM's clear. Nose and oropharynx free from injection or lesion. Oral membranes moist and pink. No cervical lymph nodes. Thyroid non-tender, no masses, or enlargement. Carotids pulses 2+/4+ without bruits. No JVD with HOB at 30 degrees. Chest is normal shape. Lungs are clear to all yao with good air exchange through out. HRRR with RSB 2nd ICS (more content not included)... [facility] 07-01-2023 History of Presen t illness Narrative 77 year old female with c/o here for follow up Doing well, no concerns. Pmr (polymyalgia rheumatica) ([facility]) (primary encounter diagnosis) Currently off steroids Still doing well off steroids. Igm monoclonal gammopathy of uncertain significance Macroglobulinemia ([facility]) 08/18/[address] Dee: recommended reevaluation in 2 years Notes some increased tingling in lower extremities Osteopenia, senile Disorder of bone and cartilage Hx of steroid therapy Current medications: Calcium-vit D 3 1200mg-1000u chew daily 09/09/2022 DXA scan comparison 08/25/2016: t-scores LS: -2.3, 6.7% decrease; LH: -1.4,. 1.4% decrease; LFN:-1.2. 0.5% decrease; RH:-1.6. 3.9% decrease; RFN: -1.5 3.6%decrease. FRAX: Major osteoporotic fracture risk 11%, Hip fracture risk 2.5% Elevated blood sugar Hemoglobin A1C (%) Date Value 06/23/2023 5.8 07/21/2022 5.8 08/11/2021 5.7 08/29/2020 6.0 ) Deep vein thrombosis (dvt) of distal vein of lower extremity, unspecified chronicity, unspecified laterality (hcc) long term care phlebotomist current use of anticoagulant therapy Current medications: Warfarin 7.5mg as directec Maintaining therapeutic levels Polyarthritis Mobility impaired Feels arthritis has improved quite a bit with regular exercise she has been doing Feels no significant issues. No falls. Cervicalgia: left neck pain: Currently no pain, Did see chiropractor Dr. James 3 times which did help but not as much as OMT here. . 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 Nonspecific abnormal results of liver function study Other malaise and fatigue Polymyalgia rheumatica (HCC) Unspecified constipation PAST SURGICAL HISTORY Procedure Laterality Date APPENDECTOMY 1961 OOPHORECTOMY PARTIAL/TOTAL UNI/BI 1971 left OOPHORECTOMY PARTIAL/TOTAL UNI/BI 1986 right PAST SURGICAL HISTORY OF 12-15-07 CT abdomen PAST SURGICAL HISTORY OF 12/29/07 limited U/S abdomen PAST SURGICAL HISTORY OF 1974 hysterectomy PAST SURGICAL HISTORY OF 1987 left mandibular salivary gland removed PAST SURGICAL HISTORY OF 02/11/00 Excise polo's neuroma Right foot Social History Tobacco Use Smoking status: Former Packs/day: 1.00 Years: 30.00 Total pack years: 30.00 Types: Cigarettes Quit date: 02/09/1992 Years since quittin.4 Smokeless tobacco: Never Substance Use Topics Alcohol use: Yes Comment: ocassional Drug use: No ACTIVE PROBLEM LIST Asymptomatic Postmenopausal Status (Age-Related) (Natural) Macroglobulinemia (Hcc) Igm Monoclonal Gammopathy of Uncertain Significance Family History of Colon Cancer in Father Dvt (Deep Venous Thrombosis) ([facility]) Pmr (Polymyalgia Rheumatica) ([facility]) Osteopenia, Senile Current Outpatient Medications Medication Sig Dispense Refill warfarin (COUMADIN) 7.5 mg tablet 7.5mg on Mon and Fri and 10mg all other days or as directed by provider . 90 tablet 3 warfarin (COUMADIN) 10 mg tablet 7.5mg Mon, Fri and 10mg all other days or as directed 30 tablet 5 CALCIUM CARB/VIT D3/MINERALS (CALCIUM CARBONATE-VIT D3-MIN) 1,200 mgcalcium -1,000 unit chew Take 1 capsule by mouth once daily. MAGNESIUM CARBONATE ORAL Take 500 mg by mouth once daily. cholecalciferol(VITAMIN D 1,000 UNIT CAP) Take one(1) tablet daily. 0 MULTIVITAMIN TAB Take one(1) tablet daily. 0 No current facility-administered medications for this visit. DTAP,TDAP,TD(2 - Td or Tdap) due on 06/22/2022 ADVANCE DIRECTIVE DISCUSSION due on 11/29/2022 COVID-19 VACCINE(6 - Pfizer series) due on 12/07/2022 FECAL OCCULT BLOOD due on 07/22/2023 EXAM: BP 130/72 Pulse 71 Resp 16 Wt 63 kg (139 lb) SpO2 97% BMI 22.08 kg/m Pleasant well appearing older woman in no acute distress. Alert and oriented all spheres. Normal affect and cognition. Speech normal. No deficits to learning or comprehension. Skin warm, dry, pink to lips and nailbeds. Normal turgor. Respirations regular and unlabored. HEENT: NCAT. No scleral icterus or conjunctival injection. TM's clear. Nose and oropharynx free from injection or lesion. Oral membranes moist and pink. No cervical lymph nodes. Thyroid non-tender, no masses, or enlargement. Carotids pulses 2+/4+ without bruits. No JVD with HOB at 30 degrees. Chest is normal shape. Lungs are clear to all yao with good air exchange through out. HRRR with RSB 2nd ICS flow murmur unchanged, no gallop. No lifts, heaves, or rubs. Extrem: no clubbing or cyanosis. Edema: none. Extremities are warm and pink with prompt capillary refill. ASSESSMENT/PLAN: 1. PMR (polymyalgia rheumatica) ([facility]) - ICD9: 725, ICD10: M35.3 (primary diagnosis) Stable off prednisone 2. IgM monoclonal gammopathy of uncertain significance - ICD9: 273.1, ICD10: D47.2 Due for follow up: will place routine orders for Dr. Dee - ABS GRAN CT + CBC - COMP METABOLIC PANEL - SERUM VISCOSITY - MONOCLONAL PROT UR W/INTERP - PROTEIN ELECT RND UR W/INTERP - MONOCLONAL PROTEIN, SERUM (BLOOD) 3. Macroglobulinemia (HCC) - ICD9: 273.3, ICD10: C88.0 As above - ABS GRAN CT + CBC - COMP METABOLIC PANEL - SERUM VISCOSITY - MONOCLONAL PROT UR W/INTERP - PROTEIN ELECT RND UR W/INTERP - MONOCLONAL PROTEIN, SERUM (BLOOD) 4. Osteopenia, senile - ICD9: 733.90, ICD10: M85.80 5. Disorder of bone and cartilage - ICD9: 733.90, ICD10: M89.9, M94.9 - Reviewed the need for Calcium and Vitamin D supplements and weight bearing exercise as tolerated - declined therapy based on prior treatment with Actonel. Reviewed declines in bone density last study: open to discussion. We decided to recheck next year and determine course 6. Hx of steroid therapy - ICD9: V87.45, ICD10: Z92.241 No current steroids 7. Elevated blood sugar - ICD9: 790.29, ICD10: R73.9 Stable, prediabetic range improving 8. Deep vein thrombosis (DVT) of distal vein of lower extremity, unspecified chronicity, unspecified laterality (HCC) - ICD9: 453.42, ICD10: I82.4Z9 No current sx 9. [facility] current use of anticoagulant therapy - ICD9: V58.61, ICD10: Z79.01 Compliant, therapeutic INR maintained 10. Polyarthritis - ICD9: 716.50, ICD10: M13.0 Doing well over all, exercising routinely 11. Mobility impaired - ICD9: 799.89, ICD10: Z74.09 Resolved from patient's viewpoint. Leilani Ferguson PA-C documented in this encounter [facility] 06-23-2023 Miscellaneous Notes Pt called and is notified of providers results and instructions. Pt voices understanding. Ericka Lemos, RN Left message to call office. Same. Recheck four weeks. Last INR: PT INR 2.3 06/23/2023 Current dose of coumadin is: 7.5mg Mon Wed Sat and 10mg all other days. Last date of dose change: 03/15/23. Previous INR (date and result): 2.6 06/14/23 Additional Clinical Information or narrative: no documented in this encounter [facility] 06-14-2023 Note HNO ID: [id number] Author: Leilani Ferguson PA-C Service: ? Author Type: Physician Alum Plant Supervisor Type: Progress Notes Filed: 06/14/2023 4:40 PM Note Text: Same dose, 4 weeks Roebrt Rg PA-C [facility] 06-14-2023 History of Presen t illness Narrative Same dose, 4 weeks Robert Rg PA-C patient had inr completed at [facility] patients inr is 2.6 (patients inr range is 2.0-3.0) patient is currently taking 7.5mg Mon,Wed,Sat and 10mg all other days patients last dose change was on 03/15/23 due to a high level of 3.6 (dose at that time was 7.5mg Mon,Fri and 10mg all other days) patient has had no changes in medication and no missed doses and no change in diet Advised patient to continue on the same dose(s) and that they would only be contacted regarding dosage and follow up instructions after review with provider, if a change is needed. Written instructions given and patient verbalized understanding. Presently scheduled in 4 weeks (07/12/23) for follow up INR. documented in this encounter [facility] 06-14-2023 Note HNO ID: [id number] Author: Ct Allen RN Service: ? Author Type: ? Type: Progress Notes Filed: 06/14/2023 4:40 PM Note Text: patient had inr completed at [facility] patients inr is 2.6 (patients inr range is 2.0-3.0) patient is currently taking 7.5mg Mon,Wed,Sat and 10mg all other days patients last dose change was on 03/15/23 due to a high level of 3.6 (dose at that time was 7.5mg Mon,Fri and 10mg all other days) patient has had no changes in medication and no missed doses and no change in diet Advised patient to continue on the same dose(s) and that they would only be contacted regarding dosage and follow up instructions after review with provider, if a change is needed. Written instructions given and patient verbalized understanding. Presently scheduled in 4 weeks (07/12/23) for follow up INR. [facility] 05-31-2023 Note HNO ID: [id number] Author: Leilani Ferguson PA-C Service: ? Author Type: Physician Alum Plant Supervisor Type: Progress Notes Filed: 06/02/2023 2:05 PM Note Text: Continue current dosing with compliance and recheck 2 weeks. Thanks, Robert Ferguson PA-C [facility] 05-31-2023 History of Presen t illness Narrative Continue current dosing with compliance and recheck 2 weeks. Thanks, Robert Ferguson PA-C patient had inr completed at [facility] patients inr is 1.8 (patients inr range is 2.0-3.0) patient is currently taking 7.5mg Mon,Wed,Sat and 10mg all other days patients last dose change was on 03/15/23 due to a high level of 3.6 (dose at that time was 7.5mg Mon,Fri and 10mg all other days) patient has had no changes in medication and patient missed Fridays 10mg dose and no change in diet Advised patient to continue on the same dose(s) and that they would only be contacted regarding dosage and follow up instructions after review with provider, if a change is needed. Written instructions given and patient verbalized understanding. Presently scheduled in 2 weeks (06/14/23) for follow up INR since level is just slightly low but most likely due to the missed dose documented in this encounter [facility] 05-31-2023 Note HNO ID: [id number] Author: Ct Allen RN Service: ? Author Type: ? Type: Progress Notes Filed: 06/02/2023 2:05 PM Note Text: patient had inr completed at [facility] patients inr is 1.8 (patients inr range is 2.0-3.0) patient is currently taking 7.5mg Mon,Wed,Sat and 10mg all other days patients last dose change was on 03/15/23 due to a high level of 3.6 (dose at that time was 7.5mg Mon,Fri and 10mg all other days) patient has had no changes in medication and patient missed Fridays 10mg dose and no change in diet Advised patient to continue on the same dose(s) and that they would only be contacted regarding dosage and follow up instructions after review with provider, if a change is needed. Written instructions given and patient verbalized understanding. Presently scheduled in 2 weeks (06/14/23) for follow up INR since level is just slightly low but most likely due to the missed dose [facility] 05-03-2023 Note HNO ID: [id number] Author: Damaris Fierro MD Service: ? Author Type: Physician Type: Progress Notes Filed: 05/03/2023 10:01 AM Note Text: agree [facility] 05-03-2023 Note HNO ID: [id number] Author: Ct Allen RN Service: ? Author Type: ? Type: Progress Notes Filed: 05/03/2023 10:01 AM Note Text: patient had inr completed at [facility] patients inr is 2.1 (patients inr range is 2.0-3.0) patient is currently taking 7.5mg Mon,Wed,Sat and 10mg all other days patients last dose change was on 03/15/23 due to a high level of 3.6 (dose at that time was 7.5mg Mon,Fri and 10mg all other days) patient has had no changes in medication and no missed doses and no change in diet Advised patient to continue on the same dose(s) and that they would only be contacted regarding dosage and follow up instructions after review with provider, if a change is needed. Written instructions given and patient verbalized understanding. Presently scheduled in 4 weeks (05/31/23) for follow up INR. [facility] 05-03-2023 History of Presen t illness Narrative agree patient had inr completed at [facility] patients inr is 2.1 (patients inr range is 2.0-3.0) patient is currently taking 7.5mg Mon,Wed,Sat and 10mg all other days patients last dose change was on 03/15/23 due to a high level of 3.6 (dose at that time was 7.5mg Mon,Fri and 10mg all other days) patient has had no changes in medication and no missed doses and no change in diet Advised patient to continue on the same dose(s) and that they would only be contacted regarding dosage and follow up instructions after review with provider, if a change is needed. Written instructions given and patient verbalized understanding. Presently scheduled in 4 weeks (05/31/23) for follow up INR. documented in this encounter [facility] 04-05-2023 Note HNO ID: [id number] Author: Leilani Ferguson PA-C Service: ? Author Type: Physician Alum Plant Supervisor Type: Progress Notes Filed: 04/05/2023 4:09 PM Note Text: Agree 4 weeks, same dosing Robert Rg PA-C [facility] 04-05-2023 History of Presen t illness Narrative Agree 4 weeks, same dosing Robert Rg PA-C patient had inr completed at [facility] patients inr is 2.5 (patients inr range is 2.0-3.0) patient is currently taking 7.5mg Mon,Wed,Sat and 10mg all other days patients last dose change was on 03/15/23 due to a high level of 3.6 (dose at that time was 7.5mg Mon,Fri and 10mg all other days) patient has had no changes in medication and no missed doses and no change in diet Advised patient to continue on the same dose(s) and that they would only be contacted regarding dosage and follow up instructions after review with provider, if a change is needed. Written instructions given and patient verbalized understanding. Presently scheduled in 4 weeks (05/03/23) for follow up INR. documented in this encounter [facility] 04-05-2023 Note HNO ID: [id number] Author: Ct Allen RN Service: ? Author Type: ? Type: Progress Notes Filed: 04/05/2023 4:09 PM Note Text: patient had inr completed at [facility] patients inr is 2.5 (patients inr range is 2.0-3.0) patient is currently taking 7.5mg Mon,Wed,Sat and 10mg all other days patients last dose change was on 03/15/23 due to a high level of 3.6 (dose at that time was 7.5mg Mon,Fri and 10mg all other days) patient has had no changes in medication and no missed doses and no change in diet Advised patient to continue on the same dose(s) and that they would only be contacted regarding dosage and follow up instructions after review with provider, if a change is needed. Written instructions given and patient verbalized understanding. Presently scheduled in 4 weeks (05/03/23) for follow up INR. [facility] 03-22-2023 Note HNO ID: [id number] Author: Damaris Fierro MD Service: ? Author Type: Physician Type: Progress Notes Filed: 03/22/2023 9:55 AM Note Text: agree [facility] 03-22-2023 Note HNO ID: [id number] Author: Ct Allen RN Service: ? Author Type: ? Type: Progress Notes Filed: 03/22/2023 9:55 AM Note Text: patient had inr completed at [facility] patients inr is 3.0 (patients inr range is 2.0-3.0) patient is currently taking 7.5mg Mon,Wed,Sat and 10mg all other days patients last dose change was on 03/15/23 due to a high level of 3.6 (dose at that time was 7.5mg Mon,Fri and 10mg all other days) patient has had no changes in medication and no missed doses and no change in diet Advised patient to continue on the same dose(s) and that they would only be contacted regarding dosage and follow up instructions after review with provider, if a change is needed. Written instructions given and patient verbalized understanding. Presently scheduled in 2 weeks (04/05/23) for follow up INR since this is the first normal reading since dose change [facility] 03-22-2023 History of Presen t illness Narrative agree patient had inr completed at [facility] patients inr is 3.0 (patients inr range is 2.0-3.0) patient is currently taking 7.5mg Mon,Wed,Sat and 10mg all other days patients last dose change was on 03/15/23 due to a high level of 3.6 (dose at that time was 7.5mg Mon,Fri and 10mg all other days) patient has had no changes in medication and no missed doses and no change in diet Advised patient to continue on the same dose(s) and that they would only be contacted regarding dosage and follow up instructions after review with provider, if a change is needed. Written instructions given and patient verbalized understanding. Presently scheduled in 2 weeks (04/05/23) for follow up INR since this is the first normal reading since dose change documented in this encounter [facility] 03-15-2023 Note HNO ID: [id number] Author: Mayelin Sanders LPN Service: ? Author Type: ? Type: Progress Notes Filed: 03/15/2023 3:50 PM Note Text: Left detailed message for patient. [facility] 03-15-2023 History of Presen t illness Narrative Left detailed message for patient. 7.5mg M-W-Sa, all other days 10mg. Recheck INR 2 weeks. Thanks, Robert eFrguson PA-C patient had inr completed at [facility] patients inr is 3.6 (patients inr range is 2.0-3.0) patient is currently taking 7.5mg Mon,Fri and 10mg all other days patients last dose change was on 02/23/22 due to a low level of 1.4 (dose at that time was 7.5mg Tues,Thurs,Sat and 10mg all other days) patient has had no changes in medication and no missed doses and no change in diet FYI- patient has been instructed to hold coumadin until contacted Advised patient that they would be contacted regarding medication dose and when to follow up after information is reviewed by provider. After provider review please contact the patient with information and schedule follow up appointment with coumadin clinic. ok to leave a detailed message if no answer FYI- patient has been scheduled for a 1 week follow up inr on 03/22/23 documented in this encounter [facility] 03-15-2023 Note HNO ID: [id number] Author: Leilani Ferguson PA-C Service: ? Author Type: Physician [employer]um [employer] Supervisor Type: Progress Notes Filed: 03/15/2023 1:19 PM Note Text: 7.5mg M-W-Sa, all other days 10mg. Recheck INR 2 weeks. Robert Rg PA-C [facility] 03-15-2023 Note HNO ID: [id number] Author: Ct Allen RN Service: ? Author Type: ? Type: Progress Notes Filed: 03/15/2023 1:19 PM Note Text: patient had inr completed at [facility] patients inr is 3.6 (patients inr range is 2.0-3.0) patient is currently taking 7.5mg Mon,Fri and 10mg all other days patients last dose change was on 02/23/22 due to a low level of 1.4 (dose at that time was 7.5mg Tues,Thurs,Sat and 10mg all other days) patient has had no changes in medication and no missed doses and no change in diet FYI- patient has been instructed to hold coumadin until contacted Advised patient that they would be contacted regarding medication dose and when to follow up after information is reviewed by provider. After provider review please contact the patient with information and schedule follow up appointment with coumadin clinic. ok to leave a detailed message if no answer FYI- patient has been scheduled for a 1 week follow up inr on 03/22/23 [facility] 02-16-2023 Note HNO ID: [id number] Author: Leilani Ferguson PA-C Service: ? Author Type: Physician [employer]um [employer] Supervisor Type: Progress Notes Filed: 02/17/2023 11:36 AM Note Text: Agree, same dose, 4 weeks Robert Rg PA-C [facility] 02-16-2023 History of Presen t illness Narrative Agree, same dose, 4 weeks Robert Rg PA-C patient had inr completed at [facility] patients inr is 2.5 (patients inr range is 2.0-3.0) patient is currently taking 7.5mg Mon,Fri and 10mg all other days patients last dose change was on 02/23/22 due to a low level of 1.4 (dose at that time was 7.5mg Tues,Thurs,Sat and 10mg all other days) patient has had no changes in medication and no missed doses and no change in diet Advised patient to continue on the same dose(s) and that they would only be contacted regarding dosage and follow up instructions after review with provider, if a change is needed. Written instructions given and patient verbalized understanding. Presently scheduled in 4 weeks (03/15/23) for follow up INR. documented in this encounter [facility] 02-16-2023 Note HNO ID: [id number] Author: Ct Allen RN Service: ? Author Type: ? Type: Progress Notes Filed: 02/17/2023 11:36 AM Note Text: patient had inr completed at [facility] patients inr is 2.5 (patients inr range is 2.0-3.0) patient is currently taking 7.5mg Mon,Fri and 10mg all other days patients last dose change was on 02/23/22 due to a low level of 1.4 (dose at that time was 7.5mg Tues,Thurs,Sat and 10mg all other days) patient has had no changes in medication and no missed doses and no change in diet Advised patient to continue on the same dose(s) and that they would only be contacted regarding dosage and follow up instructions after review with provider, if a change is needed. Written instructions given and patient verbalized understanding. Presently scheduled in 4 weeks (03/15/23) for follow up INR. [facility] 02-08-2023 Note HNO ID: [id number] Author: Mayelin Sanders LPN Service: ? Author Type: ? Type: Progress Notes Filed: 02/09/2023 2:15 PM Note Text: Left a detailed message for patient. [facility] 02-08-2023 Note HNO ID: [id number] Author: Leilani Ferguson PA-C Service: ? Author Type: Physician Alum Plant Supervisor Type: Progress Notes Filed: 02/09/2023 2:15 PM Note Text: Continue same dose and recheck in 2 weeks. Thanks, Robert Ferguson PA-C [facility] 02-08-2023 Note HNO ID: [id number] Author: Gale Sandoval RN Service: ? Author Type: Registered Nurse Type: Progress Notes Filed: 02/08/2023 6:21 PM Note Text: Patient calling for Coumadin/INR recheck instructions. She is upset because she has not yet received a call. She was told by Coumadin Clinic Nurse to hold coumadin until further instruction and she has a recheck INR scheduled in one week. She says this happened with her last result also. Please review and advise. Gale Sandoval RN [facility] 02-08-2023 History of Presen t illness Narrative Left a detailed message for patient. Continue same dose and recheck in 2 weeks. Thanks, Robert Ferguson PA-C Patient calling for Coumadin/INR recheck instructions. She is upset because she has not yet received a call. She was told by Coumadin Clinic Nurse to hold coumadin until further instruction and she has a recheck INR scheduled in one week. She says this happened with her last result also. Please review and advise. Gale Sandoval RN patient had inr completed at [facility] patients inr is 3.1 (patients inr range is 2.0-3.0) patient is currently taking 7.5mg Mon,Fri and 10mg all other days patients last dose change was on 02/23/22 due to a low level of 1.4 (dose at that time was 7.5mg Tues,Thurs,Sat and 10mg all other days) patient has had no changes in medication and no missed doses and no change in diet FYI- 2 weeks ago patient level was low at 1.9 patient was instructed to take 13.5mg for one dose then resume regular dosing schedule as listed above patient has been instructed to hold coumadin until contacted Advised patient that they would be contacted regarding medication dose and when to follow up after information is reviewed by provider. After provider review please contact the patient with information and schedule follow up appointment with coumadin clinic. ok to leave a detailed message if no answer FYI- patient has been scheduled for a 1 week follow up inr on 02/16/23 documented in this encounter [facility] 02-08-2023 Note HNO ID: [id number] Author: Ct Allen RN Service: ? Author Type: ? Type: Progress Notes Filed: 02/09/2023 2:15 PM Note Text: patient had inr completed at [facility] patients inr is 3.1 (patients inr range is 2.0-3.0) patient is currently taking 7.5mg Mon,Fri and 10mg all other days patients last dose change was on 02/23/22 due to a low level of 1.4 (dose at that time was 7.5mg Tues,Thurs,Sat and 10mg all other days) patient has had no changes in medication and no missed doses and no change in diet FYI- 2 weeks ago patient level was low at 1.9 patient was instructed to take 13.5mg for one dose then resume regular dosing schedule as listed above patient has been instructed to hold coumadin until contacted Advised patient that they would be contacted regarding medication dose and when to follow up after information is reviewed by provider. After provider review please contact the patient with information and schedule follow up appointment with coumadin clinic. ok to leave a detailed message if no answer FYI- patient has been scheduled for a 1 week follow up inr on 02/16/23 [facility] 02-02-2023 Miscellaneous Notes The following approved medication requests have been transmitted electronically. Requested Prescriptions Signed Prescriptions Disp Refills warfarin (COUMADIN) 7.5 mg tablet 90 tablet 3 Si.5mg on Mon and Fri and 10mg all other days or as directed by provider . Leilani Ferguson PA-C documented in this encounter [facility] 01-26-2023 Note HNO ID: [id number] Author: Cheryl Quinonez Ma Service: ? Author Type: ? Type: Progress Notes Filed: 01/26/2023 5:22 PM Note Text: Patient instructed of dosage with teach back method. Verbalizes understanding. [facility] 01-26-2023 Note HNO ID: [id number] Author: Leilani Ferguson PA-C Service: ? Author Type: Physician [employer]um [employer] Supervisor Type: Progress Notes Filed: 01/26/2023 5:22 PM Note Text: Please have her take an extra 3.5mg coumadin today and continue previous schedule, recheck in 2 weeks. Thanks, Robert Ferguson PA-C [facility] 01-26-2023 History of Presen t illness Narrative Patient instructed of dosage with teach back method. Verbalizes understanding. Please have her take an extra 3.5mg coumadin today and continue previous schedule, recheck in 2 weeks. Arcenio, Robert Ferguson PA-C patient had inr completed at [facility] patients inr is 1.9 (patients inr range is 2.0-3.0) patient is currently taking 7.5mg Mon,Fri and 10mg all other days patients last dose change was on 02/23/22 due to a low level of 1.4 (dose at that time was 7.5mg Tues,Thurs,Sat and 10mg all other days) patient has had no changes in medication and no missed doses and no change in diet Advised patient that they would be contacted regarding medication dose and when to follow up after information is reviewed by provider. After provider review please contact the patient with information and schedule follow up appointment with coumadin clinic. ok to leave a detailed message if no answer FYI- patient has been scheduled for a 2 week follow up inr on 02/08/23 documented in this encounter [facility] 01-25-2023 Note HNO ID: [id number] Author: Ct Allen RN Service: ? Author Type: ? Type: Progress Notes Filed: 01/26/2023 5:22 PM Note Text: patient had inr completed at [facility] patients inr is 1.9 (patients inr range is 2.0-3.0) patient is currently taking 7.5mg Mon,Fri and 10mg all other days patients last dose change was on 02/23/22 due to a low level of 1.4 (dose at that time was 7.5mg Tues,Thurs,Sat and 10mg all other days) patient has had no changes in medication and no missed doses and no change in diet Advised patient that they would be contacted regarding medication dose and when to follow up after information is reviewed by provider. After provider review please contact the patient with information and schedule follow up appointment with coumadin clinic. ok to leave a detailed message if no answer FYI- patient has been scheduled for a 2 week follow up inr on 02/08/23 [facility] 01-16-2023 Miscellaneous Notes Patient phones requesting refills as follows: Requested Prescriptions Pending Prescriptions Disp Refills warfarin (COUMADIN) 10 mg tablet 30 tablet 5 Si.5mg Mon, Fri and 10mg all other days or as directed Please review and advise. Sara Nieves LPN [facility] 12/31/22 NOV 07/01/23 documented in this encounter [facility] 12-31-2022 Instructions Leilani Ferguson PA-C - 12/31/2022 8:35 AM EST Rest from activities that strain neck. Make sure pillow is adequate to maintain neutral neck position if lying on side or back. Rolling up a soft blanket or towel in the bottom of your pillow case may provide extra support. You could also get a cervical pillow. You may try gentle range of motion stretches laying on your back on a firm surface so that your postural neck muscles are relaxed. You can then turn to either direction to the point pain occurs, hold it, and then attempt to turn a few degrees further until you are able to get your chin to the shoulder. If this make pain or stiffness worse, stop. Gentle massage, moist heat for 10-15 minutes, or lineaments may help with pain and are fine to use. If pain worsens, numbness, tingling of loss of sensation or strength is occurring, please call us immediately. If your neck pain persists, we may consider physical therapy to help. Muscle energy as shown. Myofascial as shown. documented in this encounter [facility] 12-31-2022 History of Presen t illness Narrative 77 year old female with c/o left neck pain Starts in left shoulder Twinges, but pain worsened on Wednesday and Wednesday. Patient was walking when the shoulder pain started. Started Wednesday Sharp pain with burning sensation that radiates up her neck and down into her shoulder. Tried heat and laying down, relieved when laying down. Does not think heat helped very much. Besides walking, looking down also seems to aggravate. Tylenol 500 mg 1 PO daily, gives some relief. Denies numbness, tingling. Not like a stiff neck. New feeling. Pmr (polymyalgia rheumatica) ([facility]) (primary encounter diagnosis) Polyarthritis Mobility impaired Off prednisone since Covid. Doing fine. Mobility is good, arthritis fine . Macroglobulinemia ([facility]) Igm monoclonal gammopathy of uncertain significance Last visit [facility] 08/18/2021- f/u 2 years Component Latest Ref Rng & Units 08/11/2021 WBC 3.70 - 11.00 k/uL 7.11 RBC 3.90 - 5.20 m/uL 4.31 Hemoglobin 11.5 - 15.5 g/dL 13.0 Hematocrit 36.0 - 46.0 % 40.2 MCV 80.0 - 100.0 fL 93.3 MCH 26.0 - 34.0 pG 30.2 MCHC 30.5 - 36.0 g/dL 32.3 RDW-CV 11.5 - 15.0 % 14.7 Platelet Count 150 - 400 k/uL 265 MPV 9.0 - 12.7 fL 9.8 Absol Gran Count 1.45 - 7.50 k/uL 4.64 Absolute nRBC <0.01 k/uL <0.01 Protein, Total 6.3 - 8.0 g/dL 7.2 Albumin 3.37 - 4.23 gm/dL 3.59 Alpha 1 Globulin 0.18 - 0.31 gm/dL 0.30 Alpha 2 Globulin 0.52 - 0.97 gm/dL 0.84 Beta Globulin 0.84 - 1.36 gm/dL 0.90 Gamma Globulin 0.70 - 1.44 gm/dL 1.58 (H) Interpretation (Prot Electro) SEE COMMENT M-Protein Location Gamma fraction M-Protein Concentration 0.00 gm/dL 0.88 (H) SPE Staff Review Reviewed by Bonny Robertson MD ([id number]) MPA IgG, Serum 700 - 1,600 mg/dL 717 MPA IgA, Serum 70 - 400 mg/dL 38 (L) MPA IgM, Serum 40 - 230 mg/dL 1,171 (H) [place] Free, Serum 3.30 - 19.40 mg/L 16.7 Lambda Free, Serum 5.7 - 26.3 mg/L 6.0 K/L Ratio, Serum 0.26 - 1.65 2.78 (H) MPA Result No M protein is identified. M protein is present. (A) Interpretation (MPA) SEE COMMENT Staff Review (MPA) Reviewed by Bonny Robertson MD ([id number]) Protein, Urine Random 0 - 20 mg/dL 6 Albumin, Urine (Prot Electro) % 55.5 Alpha 1 Globulin, Urine % 4.1 Alpha 2 Globulin, Urine % 11.8 Beta Globulin, Urine % 14.5 Gamma Globulin, Urine % 14.1 Interpretation (Urine Electro) SEE COMMENT Staff Review (Urine Electro) Reviewed by Bonny Robertson MD ([id number]) Result (UMPA) No M protein is identified. A poorly defined region of restricted mobility is present that may represent an M (A) . . . Interpretation (UMPA) SEE COMMENT Staff Review (UMPA) Reviewed by Bonny Robertson MD ([id number]) Viscosity, Serum 1.3 - 1.8 Test performed by [email or web address], [place], [place] Deep vein thrombosis (dvt) of distal vein of lower extremity, unspecified chronicity, unspecified laterality (hcc) [facility] current use of anticoagulant therapy Current medications: Warfarin 7.5-10mg daily as directed No symptoms Elevated blood sugar Hx of steroid therapy Hemoglobin A1C (%) Date Value 07/21/2022 5.8 08/11/2021 5.7 08/29/2020 6.0 ) Disorder of bone and cartilage Current medications: Calcium Carbonate -Vit D 3 1200mg-1000u daily 09/09/2022 DXA scan comparison 08/25/2016: t-scores LS: -2.3, 6.7% decrease; LH: -1.4,. 1.4% decrease; LFN:-1.2. 0.5% decrease; RH:-1.6. 3.9% decrease; RFN: -1.5 3.6%decrease. 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 Nonspecific abnormal results of liver function study Other malaise and fatigue Polymyalgia rheumatica (HCC) Unspecified constipation PAST SURGICAL HISTORY Procedure Laterality Date APPENDECTOMY 1961 OOPHORECTOMY PARTIAL/TOTAL UNI/BI 1971 left OOPHORECTOMY PARTIAL/TOTAL UNI/BI 1986 right PAST SURGICAL HISTORY OF 12-15-07 CT abdomen PAST SURGICAL HISTORY OF 12/29/07 limited U/S abdomen PAST SURGICAL HISTORY OF 1974 hysterectomy PAST SURGICAL HISTORY OF 1987 left mandibular salivary gland removed PAST SURGICAL HISTORY OF 02/11/00 Excise oplo's neuroma Right foot Social History Tobacco Use Smoking status: Former Packs/day: 1.00 Years: 30.00 Pack years: 30.00 Types: Cigarettes Quit date: 02/09/1992 Years since quittin.9 Smokeless tobacco: Never Substance Use Topics Alcohol use: Yes Comment: ocassional Drug use: No ACTIVE PROBLEM LIST Asymptomatic Postmenopausal Status (Age-Related) (Natural) Macroglobulinemia (Hcc) Igm Monoclonal Gammopathy of Uncertain Significance Family History of Colon Cancer in Father Dvt (Deep Venous Thrombosis) (Hcc) Pmr (Polymyalgia Rheumatica) (Hcc) Osteopenia, Senile Current Outpatient Medications Medication Sig Dispense Refill warfarin (COUMADIN) 10 mg tablet 7.5mg Mon, Fri and 10mg all other days or as directed (Patient taking differently: 7.5mg Mon/Fri and 10mg all other days or as directed) 30 tablet 5 warfarin (COUMADIN) 7.5 mg tablet Take 1 tablet by mouth once daily. 7.5mg Mon, Fri and 10mg all other days. or as directed . (Patient taking differently: Take 7.5 mg by mouth once daily. 7.5mg Mon/Fri and 10mg all other days. or as directed .) 30 tablet 11 CALCIUM CARB/VIT D3/MINERALS (CALCIUM CARBONATE-VIT D3-MIN) 1,200 mgcalcium -1,000 unit chew Take 1 capsule by mouth once daily. MAGNESIUM CARBONATE ORAL Take 500 mg by mouth once daily. cholecalciferol(VITAMIN D 1,000 UNIT CAP) Take one(1) tablet daily. 0 MULTIVITAMIN TAB Take one(1) tablet daily. 0 No current facility-administered medications for this visit. DTAP,TDAP,TD(2 - Td or Tdap) due on 06/22/2022 ADVANCE DIRECTIVE DISCUSSION due on 11/29/2022 DEPRESSION ASSESSMENT Never done EXAM: BP 126/80 Pulse 76 Resp 16 Wt 63 kg (139 lb) SpO2 97% BMI 22.08 kg/m Pleasant well appearing older adult woman in no acute distress. Alert and oriented all spheres. Normal affect and cognition. Speech normal. No deficits to learning or comprehension. Skin warm, dry, pink to lips and nailbeds. Normal turgor. Respirations regular and unlabored. HEENT: NCAT. No scleral icterus or conjunctival injection. TM's clear. Nose and oropharynx free from injection or lesion. Oral membranes moist and pink. No cervical lymph nodes. Thyroid non-tender, no masses, or enlargement. Carotids pulses 2+/4+ without bruits. No JVD with HOB at 30 degrees. Chest is normal shape. Lungs are clear to all yao with good air exchange through out. HRRR without murmur or gallop. No lifts, heaves, or rubs. Extrem: no clubbing, cyanosis, edema. Distal pulses 2+/4, prompt capillary refill. Neck is supple, TTP in bilateral trapezius, limited rotation and side bending bilateral. No loss of sensation. FROM and strength upper extremities Extrem: no clubbing, cyanosis, edema. Distal pulses 2+/4, prompt capillary refill. OMT: myofascial release TTPs, muscle energy techniques with significant improvement in ROM and ful pain releif. ASSESSMENT/PLAN: 1. Cervicalgia - ICD9: 723.1, ICD10: M54.2 (primary diagnosis) Improved with OMT, demomstrated muscle energy and myofascial self release. Patient declines pain medication. 2. PMR (polymyalgia rheumatica) ([facility]) - ICD9: 725, ICD10: M35.3 - SED RATE WESTERGREN 3. Macroglobulinemia (HCC) - ICD9: 273.3, ICD10: C88.0 - CBC + DIFF 4. Elevated blood sugar - ICD9: 790.29, ICD10: R73.9 - HGB A1C - COMP METABOLIC PANEL - CBC + DIFF - LIPID PANEL BASIC 5. Hyperlipidemia, mixed - ICD9: 272.2, ICD10: E78.2 - to be determined upon return of lab results - Encouraged following a low fat, low cholesterol diet. - Encouraged following a low carbohydrate, healthy oil intake diet. - LIPID PANEL BASIC F/u 6 months with labs ahead. Notify if any persistent issues with neck. Leilani Ferguson PA-C Some of this note may have been copied and pasted for the purpose of history context and comparison. documented in this encounter [facility] 12-21-2022 History of Presen t illness Narrative agree patient had inr completed at [facility] patients inr is 2.1 (patients inr range is 2.0-3.0) patient is currently taking 7.5mg Mon,Fri and 10mg all other days patients last dose change was on 02/23/22 due to a low level of 1.4 (dose at that time was 7.5mg Tues,Thurs,Sat and 10mg all other days) patient has had no changes in medication and no missed doses and no change in diet Advised patient to continue on the same dose(s) and that they would only be contacted regarding dosage and follow up instructions after review with provider, if a change is needed. Written instructions given and patient verbalized understanding. Presently scheduled in 1 month (01/25/23) for follow up INR. documented in this encounter [facility] 12-07-2022 History of Presen t illness Narrative Continue present scheduled and recheck in 2 weeks. Thanks, Robert Ferguson PA-C patient had inr completed at [facility] patients inr is 1.8 (patients inr range is 2.0-3.0) patient is currently taking 7.5mg Mon,Fri and 10mg all other days patients last dose change was on 02/23/22 due to a low level of 1.4 (dose at that time was 7.5mg Tues,Thurs,Sat and 10mg all other days) patient has had no changes in medication and patient missed Wednesday's dose and no change in diet Advised patient to continue on the same dose(s) and that they would only be contacted regarding dosage and follow up instructions after review with provider, if a change is needed. Written instructions given and patient verbalized understanding. Presently scheduled in 2 weeks (12/21/22) for follow up INR since low level is most likely due to the missed dose documented in this encounter [facility] 11-09-2022 History of Presen t illness Narrative Same dose, recheck 4 weeks. Thanks, Robert Ferguson PA-C patient had inr completed at [facility] patients inr is 2.7 (patients inr range is 2.0-3.0) patient is currently taking 7.5mg Mon,Fri and 10mg all other days patients last dose change was on 02/23/22 due to a low level of 1.4 (dose at that time was 7.5mg Tues,Thurs,Sat and 10mg all other days) patient has had no changes in medication and no uninstructed missed doses and no change in diet Advised patient to continue on the same dose(s) and that they would only be contacted regarding dosage and follow up instructions after review with provider, if a change is needed. Written instructions given and patient verbalized understanding. Presently scheduled in 4 weeks (12/07/22) for follow up INR. documented in this encounter [facility] 11-05-2022 Instructions Leilani Ferguson PA-C - 11/05/2022 10:11 AM EST Hemorrhoids What are hemorrhoids? Hemorrhoids are swollen veins in the lower rectum and anus. The anus is at the end of the rectum and is the opening through which bowel movements pass from your body. Hemorrhoids are a common problem. Another name for them is piles. Hemorrhoids may be internal (inside the rectum) or external (around the anus). Internal hemorrhoids are often painless but they sometimes cause a lot of bleeding. The internal veins may stretch and even fall down (prolapse) through the anus to outside the body. The veins may then become irritated and painful. External hemorrhoids can be seen or felt easily around the anal opening. When the swollen veins are scratched or broken by straining, rubbing, or wiping, they sometimes bleed. How do they occur? Veins in the rectum and around the anus tend to swell under pressure. Hemorrhoids can result from too much pressure on these veins. You may put pressure on these veins by: straining to have a bowel movement when you are constipated waiting too long to have a bowel movement sitting for a long time on the toilet, which causes strain on the anal area coughing and sneezing often sitting for a long while. Hemorrhoids may also develop from: diarrhea obesity injury to the anus, for example, from anal intercourse some liver diseases. Flare-ups of hemorrhoids may occur during periods of stress. Some people inherit a tendency to have hemorrhoids. women should try to avoid becoming constipated because they are more likely to have hemorrhoids during . In the last trimester of , the enlarged uterus may press on blood vessels and cause hemorrhoids. Also, the strain of childbirth sometimes causes hemorrhoids after the . What are the symptoms? Symptoms of hemorrhoids include: itching, mild burning, and bleeding around the anus (for example, you might see bright red blood on toilet paper after wiping) swelling and tenderness around the anus pain with bowel movements painful lumps around the anus ranging in size from a pea to a walnut (in severe cases). How are they diagnosed? Your health care provider will examine your rectum and anus. Your provider may use a special light tool called a proctoscope or anoscope to look inside the rectum. How is it treated? The following treatments usually help to relieve most cases of hemorrhoids: High-fiber diet Eat more high-fiber foods, which will help prevent constipation. Good sources of fiber include fresh fruit; raw or cooked vegetables, especially asparagus, cabbage, carrots, corn, and broccoli; and whole-grain cereals with bran, such as shredded wheat or bran flakes. Fluids Drink plenty of water. This helps to soften bowel movements so they are easier to pass. Sitz baths and cold packs Sitting in lukewarm water 2 or 3 times a day for 15 minutes cleans the anal area and may relieve discomfort. (If the bath water is too hot, swelling around the anus will get worse.) Also, you might try putting a cloth-covered ice pack on the anus for 10 minutes, 4 times a day. Medications For mild discomfort, your health care provider may prescribe a cream or ointment for the painful area. The cream may contain witch guadalupe, zinc oxide, or petroleum jelly. Your provider may also prescribe medicated suppositories to put inside the rectum. Procedures and surgeries A number of procedures can be used to remove or shrink hemorrhoids. If you have protruding internal hemorrhoids, your health care provider can do a procedure called hemorrhoid banding. Your provider will put a tight band around the enlarged vein and either cut the hemorrhoid open, remove any blood clots, and let the vein heal, or let the hemorrhoid dry up and fall off. This method is effective in most cases. Other methods include destroying the hemorrhoid with freezing, electrical or laser heat, or infrared light. Or your provider may shrink the hemorrhoid by injecting a chemical around the swollen vein. For severe cases of hemorrhoids, a surgical procedure called a hemorrhoidectomy may be done. For this procedure you are first given an anesthetic to prevent you from feeling pain. Then your provider cuts the inflamed parts of the hemorrhoids and removes them. How long will the effects last? Usually hemorrhoids do not pose a danger to your health. In most cases the symptoms go away in a few days. The painful lumps of more severe cases should get better in a couple of weeks. How can I take care of myself? Always tell your health care provider when you have rectal bleeding. Although bleeding may result from hemorrhoids, more serious illnesses, such as colon cancer, can also cause bleeding. Follow these guidelines to help prevent hemorrhoids and to relieve their discomfort: Do not strain during bowel movements. The straining makes hemorrhoids swell. Follow your high-fiber diet and drink plenty of water. If necessary, take a stool softener, such as Amanda's M-O, psyllium, Metamucil or Citrucel, or mineral oil. Softer stools make it easier to empty the bowels and reduce pressure on the veins. Don't overuse laxatives. Diarrhea can be as irritating to the anus as constipation. Ask your health care provider what nonprescription product you should buy to relieve pain and itching. Also, ask about any side effects of any medications prescribed for you. Exercise regularly to help prevent constipation. Avoid a lot of wiping after a bowel movement if you have hemorrhoids. Wiping with soft, moist toilet paper (or a commercial moist pad or baby wipe) may relieve discomfort. If necessary, shower instead of wiping, then dry the anus gently. Avoid lifting heavy objects when you have hemorrhoids. It may increase the pressure on the veins and make the hemorrhoids worse. Published by [employer]. This content is reviewed periodically and is subject to change as new health information becomes available. The information is intended to inform and educate and is not a replacement for medical evaluation, advice, diagnosis or treatment by a healthcare professional. Developed by [employer]. Copyright 2005 [employer] and/or one of its subsidiaries. All Rights Reserved. If Miralax isn't successful once a day, you may use Magnesium Citrate 1/2 bottle now and repeat in 8h if no BM If no BM over night, Dulcolax suppository or Sennekot. If no BM in 8 hours: Fleet's enema. If no BM and unconfortable call me or go to ED. documented in this encounter [facility] 11-05-2022 History of Presen t illness Narrative 77 year old female with c/o hemorrhoid pain x 3 weeks. No bleeding or lump Has tried everything OTC. Occurs periodically. Has difficulty with constipation despite miralax, plenty of fluids, daily walking 3 miles. Whole area escamilla, hard to sit. 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 Nonspecific abnormal results of liver function study Other malaise and fatigue Polymyalgia rheumatica (HCC) Unspecified constipation PAST SURGICAL HISTORY Procedure Laterality Date APPENDECTOMY 1961 OOPHORECTOMY PARTIAL/TOTAL UNI/BI 1970 left OOPHORECTOMY PARTIAL/TOTAL UNI/BI 1986 right PAST SURGICAL HISTORY OF 12-15-07 CT abdomen PAST SURGICAL HISTORY OF 12/29/07 limited U/S abdomen PAST SURGICAL HISTORY OF 1974 hysterectomy PAST SURGICAL HISTORY OF 1987 left mandibular salivary gland removed PAST SURGICAL HISTORY OF 02/11/00 Excise polo's neuroma Right foot Social History Tobacco Use Smoking status: Former Packs/day: 1.00 Years: 30.00 Pack years: 30.00 Types: Cigarettes Quit date: 02/09/1992 Years since quittin.7 Smokeless tobacco: Never Substance Use Topics Alcohol use: Yes Comment: ocassional Drug use: No ACTIVE PROBLEM LIST Asymptomatic Postmenopausal Status (Age-Related) (Natural) Macroglobulinemia (Hcc) Igm Monoclonal Gammopathy of Uncertain Significance Family History of Colon Cancer in Father Dvt (Deep Venous Thrombosis) (Hcc) Pmr (Polymyalgia Rheumatica) (Hcc) Osteopenia, Senile Current Outpatient Medications Medication Sig Dispense Refill warfarin (COUMADIN) 10 mg tablet 7.5mg Mon, Fri and 10mg all other days or as directed (Patient taking differently: 7.5mg Fri and 10mg all other days or as directed) 30 tablet 5 warfarin (COUMADIN) 7.5 mg tablet Take 1 tablet by mouth once daily. 7.5mg Mon, Fri and 10mg all other days. or as directed . (Patient taking differently: Take 7.5 mg by mouth once daily. 7.5mg Fri and 10mg all other days. or as directed .) 30 tablet 11 CALCIUM CARB/VIT D3/MINERALS (CALCIUM CARBONATE-VIT D3-MIN) 1,200 mgcalcium -1,000 unit chew Take 1 capsule by mouth once daily. MAGNESIUM CARBONATE ORAL Take 500 mg by mouth once daily. cholecalciferol(VITAMIN D 1,000 UNIT CAP) Take one(1) tablet daily. 0 MULTIVITAMIN TAB Take one(1) tablet daily. 0 No current facility-administered medications for this visit. DEPRESSION ASSESSMENT Never done DTAP,TDAP,TD(2 - Td or Tdap) due on 06/22/2022 EXAM: BP 132/78 Pulse 68 Resp 16 Wt 63.3 kg (139 lb 9.6 oz) SpO2 98% BMI 22.17 kg/m Pleasant older woman in good health, in no acute distress. Alert and oriented all spheres. Normal affect and cognition. Speech normal. No deficits to learning or comprehension. Skin warm, dry, pink to lips and nailbeds. Normal turgor. Respirations regular and unlabored. Extrem: no clubbing or cyanosis. Edema: none. Extremities are warm and pink with prompt capillary refill. Perianal areas with multiple red spots and surface excoriation suggestive of candidiasis. Has a cluster of smaller external hemorrhoids with one area clotted which she identifies as the area of trouble. No blood. Internal exam deferred. ASSESSMENT/PLAN: 1. Candidiasis of anus - ICD9: 112.89, ICD10: B37.89 (primary diagnosis) Use below as needed until rash clears, or up to 2 weeks. If not improving, recheck. - NYSTATIN-TRIAMCINOLONE 100,000 UNIT/GRAM-0.1 % TOPICAL OINTMENT 2. Thrombosed hemorrhoids - ICD9: 455.7, ICD10: K64.5 Sitz bath, skin care reviewed. Pramoxine not on formulary: if not may use oral prednisone and mycolog - PRAMOXINE 1 % TOPICAL FOAM - PREDNISONE 20 MG TABLET Leilani Ferguson PA-C documented in this encounter [facility] 11-02-2022 History of Presen t illness Narrative Patient instructed of dosage with teach back method. Verbalizes understanding. Skip one dose and resume same schedule. Recheck in 2 weeks. ThanksRobert PA-C patient had inr completed at [facility] patients inr is 3.9 (patients inr range is 2.0-3.0) patient is currently taking 7.5mg Mon,Fri and 10mg all other days patients last dose change was on 02/23/22 due to a low level of 1.4 (dose at that time was 7.5mg Tues,Thurs,Sat and 10mg all other days) patient has had no changes in medication and no missed doses and no change in diet FYI - patient was in the ER last not with uncontrolled vomiting Patient has been instructed to hold coumadin until contacted Advised patient that they would be contacted regarding medication dose and when to follow up after information is reviewed by provider. After provider review please contact the patient with information and schedule follow up appointment with coumadin clinic. ok to leave a detailed message if no answer FYI- patient has been scheduled for a 1 week follow up inr on 11/09/22 documented in this encounter [facility] 09-30-2022 History of Presen t illness Narrative Agree: same dose, 4 weeks. Robert Rg PA-C patient had inr completed at [facility] patients inr is 2.7 (patients inr range is 2.0-3.0) patient is currently taking 7.5mg Mon,fri and 10mg all other days patients last dose change was on 02/23/22 due to a low level of 1.4 (dose at that time was 7.5mg Tues,Thurs,Sat and 10mg all other days) patient has had no changes in medication and no missed doses and no change in diet Advised patient to continue on the same dose(s) and that they would only be contacted regarding dosage and follow up instructions after review with provider, if a change is needed. Written instructions given and patient verbalized understanding. Presently scheduled in 1 month (11/02/22) for follow up INR. documented in this encounter [facility] 09-14-2022 History of Presen t illness Narrative Same dose, 2 weeks Robert Rg PA-C patient had inr completed at [facility] patients inr is 2.8 (patients inr range is 2.0-3.0) patient is currently taking 7.5mg Mon,Fri and 10mg all other days patients last dose change was on 02/23/22 due to a low level of 1.4 (dose at that time was 7.5mg Tues,Thurs,Sat and 10mg all other days) patient has had no changes in medication and no uninstructed missed doses and no change in diet Advised patient to continue on the same dose(s) and that they would only be contacted regarding dosage and follow up instructions after review with provider, if a change is needed. Written instructions given and patient verbalized understanding. Presently scheduled in 2 weeks (09/28/22) for follow up INR since last weeks level was high at 3.7 and patient was to hold 1 dose then resume normal dosing documented in this encounter [facility] 09-07-2022 History of Presen t illness Narrative Patient notified and verbalizes understanding. Repeats back instructions. Hold one day and then resume same dosing schedule. Recheck in 1 week Robert Rg PA-C patient had inr completed at [facility] patients inr is 3.7 (patients inr range is 2.0-3.0) patient is currently taking 7.5mg Mon,Fri and 10mg all other days patients last dose change was on 02/23/22 due to a low level of 1.4 (dose at that time was 7.5mg Tues,Thurs Sat and 10mg all other days) patient has had no changes in medication and no missed doses and no change in diet FYI- patient has been instructed to hold coumadin until contacted Advised patient that they would be contacted regarding medication dose and when to follow up after information is reviewed by provider. After provider review please contact the patient with information and schedule follow up appointment with coumadin clinic. ok to leave a detailed message if no answer FYI- patient has been scheduled for a 1 week follow up inr on 09/14/22 documented in this encounter [facility] 09-07-2022 Miscellaneous Notes September 07, 2022 PID: [id number] Telma Gomes [id number] [facility] [address] [place] [address] Dear Ms. Gomes, We are pleased to inform you that the results of your recent breast imaging exam on 09/07/2022 are normal. Early detection of cancer is very important. We also understand recommendations regarding breast cancer screening are controversial. Please discuss with your primary care provider which strategy is best for you and whether a mammogram is right for you. Your imaging studies and report will be kept on file at [facility] as part of your permanent medical record and are available for your continuing care. Thank you for allowing us to help in meeting your health care needs. Sincerely, Dr. Duvall Interpreting Radiologist [facility] (Normal over 40) documented in this encounter [facility] 09-07-2022 History of Presen t illness Narrative Radiology Service Progress Note PATIENT NAME: Telma Gomes DATE OF SERVICE: September 07, 2022 TIME: 9:03 AM PATIENT IDENTITY VERIFICATION COMPLETED USING TWO (2) IDENTIFIERS: Name and Date of confirmed by patient verbally. FALL SCREENING: Has the patient had 2 falls in the last year or 1 fall with injury or currently using an Ambulatory Assistive Device (Walker, Cane, Wheelchair, Crutches, etc.)? No PATIENT GENDER DATA: Female. status: : No status: NO. PATIENT RELEVANT IMPLANT DATA REVIEWED: Not Applicable RADIOLOGY DEPARTMENT: Mammography PERIPHERAL IV DATA: Not applicable SIGNED BY: RT Ewelina(R) September 07, 2022 9:03 AM documented in this encounter [facility] 09-07-2022 History of Presen t illness Narrative Radiology Service Progress Note PATIENT NAME: Telma Gomes DATE OF SERVICE: September 07, 2022 TIME: 8:40 AM PATIENT IDENTITY VERIFICATION COMPLETED USING TWO (2) IDENTIFIERS: Name and Date of confirmed by patient verbally. FALL SCREENING: Has the patient had 2 falls in the last year or 1 fall with injury or currently using an Ambulatory Assistive Device (Walker, Cane, Wheelchair, Crutches, etc.)? No PATIENT GENDER DATA: Female. status: : No status: NO. PATIENT RELEVANT IMPLANT DATA REVIEWED: Not Applicable RADIOLOGY DEPARTMENT: Bone Density PERIPHERAL IV DATA: Not applicable SIGNED BY: RT Chandan(R) September 07, 2022 8:40 AM documented in this encounter [facility] 08-25-2022 History of Presen t illness Narrative Same dose, 2 weeks ThanksRobert PA-C patient had inr completed at [facility] patients inr is 2.2 (patients inr range is 2.0-3.0) patient is currently taking 7.5mg Mon,Fri and 10mg all other days patients last dose change was on 02/23/22 due to a low level of 1.4 (dose at that time was 7.5mg Tues,Th,Sat and 10mg all other days) patient has had no changes in medication and no uninstructed missed doses and no change in diet FYI- patient was in the ER on Wednesday with rectal bleeding Advised patient to continue on the same dose(s) and that they would only be contacted regarding dosage and follow up instructions after review with provider, if a change is needed. Written instructions given and patient verbalized understanding. Presently scheduled in 2 weeks (09/07/22 per pt request) for follow up INR. documented in this encounter [facility] 08-17-2022 History of Presen t illness Narrative Patient came in with complaints of rectal bleeding. Patient says she was in her shower and it was just everywhere the whole bottom of the shower was covered. Patient has a towel that she was sitting on while here and wearing pads and there is some blood on the towel. Patient is not lightheaded or dizzy patient does not have anybody to take her to the ER patient wants to take her self to the ER patient is being sent to the ER for full evaluation and patient is okay with this. documented in this encounter [facility] 08-17-2022 Miscellaneous Notes patients orders for coumadin clinic inr's has at this time. new order has been pended for approval if possible so that patient can continue to get inr's completed thru the coumadin clinic. coumadin clinic nurse only needs called if order can not be approved. documented in this encounter [facility] 06-15-2022 History of Presen t illness Narrative Same dose, recheck 2 weeks. Thanks, Robert Ferguson PA-C patient had inr completed at [facility] patients inr is 3.0 (patients inr range is 2.0-3.0) patient is currently taking 7.5mg Mon,Fri and 10mg all other days patients last dose change was on 02/23/22 due to a low level of 1.4 (dose at that time was 7.5mg Tues,Thurs,Sat and 10mg all other days) patient has had no changes in medication and no missed doses and no change in diet Advised patient to continue on the same dose(s) and that they would only be contacted regarding dosage and follow up instructions after review with provider, if a change is needed. Written instructions given and patient verbalized understanding. Presently scheduled in 4 weeks (07/13/22) for follow up INR. documented in this encounter [facility] 05-06-2022 Miscellaneous Notes The following approved medication requests have been transmitted electronically. Signed Prescriptions Disp Refills warfarin (COUMADIN) 10 mg tablet 30 tablet 5 Si.5mg Mon, Fri and 10mg all other days or as directed MERLENE: No Leilani Ferguson PA-C Patient phones requesting refills as follows: Pending Prescriptions Disp Refills WARFARIN 10 MG TABLET 30 tablet 5 Si.5mg Mon, Fri and 10mg all other days or as directed MERLENE: No KATHYA 06/19/21 No upcoming visit scheduled. Please review and advise. Ct Topete LPN documented in this encounter [facility] 03-16-2022 History of Presen t illness Narrative Same dose, 4 weeks Robert Rg PA-C patient had inr completed at [facility] patients inr is 2.9 (patients inr range is 2.0-3.0) patient is currently taking 7.5mg Mon,Fri and 10mg all other days patients last dose change was on 02/23/22 due to a low level of 1.4 (dose at that time was 7.5mg Tues,Thurs,Sat and 10mg all other days) patient has had no changes in medication and no missed doses and no change in diet Advised patient to continue on the same dose(s) and that they would only be contacted regarding dosage and follow up instructions after review with provider, if a change is needed. Written instructions given and patient verbalized understanding. Presently scheduled in 4 weeks (04/13/22) for follow up INR. 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 documented as of this encounter (statuses as of 03/16/2022) [facility] History of Past illness Narrative* Problem Noted Date Resolved Date Mobility impaired 06/22/2018 06/19/2021 Polyarthritis 06/22/2018 06/19/2021 Cellulitis of buttock, right 11/02/2012 Family history of colon cancer 06/30/2012 0 05/27/2018 Screening for colon cancer 06/30/201205/27 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 documented as of this encounter (statuses as of 05/06/2022) [facility] History of Past illness Narrative* Problem Noted Date Resolved Date Mobility impaired 06/22/2018 06/19/2021 Polyarthritis 06/22/2018 06/19/2021 Cellulitis of buttock, right 11/02/2012 Family history of colon cancer 06/30/2012 0 05/27/2018 Screening for colon cancer 06/30/201205/27 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 documented as of this encounter (statuses as of 06/15/2022) [facility] History of Past illness Narrative* Problem Noted Date Resolved Date Mobility impaired 06/22/2018 06/19/2021 Polyarthritis 06/22/2018 06/19/2021 Cellulitis of buttock, right 11/02/2012 Family history of colon cancer 06/30/2012 0 05/27/2018 Screening for colon cancer 06/30/201205/27 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 documented as of this encounter (statuses as of 08/17/2022) [facility]07[facility]25-2018 History of Past illness Narrative* Problem Noted Date Resolved Date Mobility impaired 06/22/2018 06/19/2021 Polyarthritis 06/22/2018 06/19/2021 Cellulitis of buttock, right 11/02/2012 Family history of colon cancer 06/30/2012 0 05/27/2018 Screening for colon cancer 06/30/201205/27 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 documented as of this encounter (statuses as of 08/17/2022) [facility] History of Past illness Narrative* Problem Noted Date Resolved Date Mobility impaired 06/22/2018 06/19/2021 Polyarthritis 06/22/2018 06/19/2021 Cellulitis of buttock, right 11/02/2012 Family history of colon cancer 06/30/2012 0 05/27/2018 Screening for colon cancer 06/30/201205/27 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 documented as of this encounter (statuses as of 08/25/2022) [facility] History of Past illness Narrative* Problem Noted Date Resolved Date Mobility impaired 06/22/2018 06/19/2021 Polyarthritis 06/22/2018 06/19/2021 Cellulitis of buttock, right 11/02/2012 Family history of colon cancer 06/30/2012 0 05/27/2018 Screening for colon cancer 06/30/201205/27 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 documented as of this encounter (statuses as of 09/07/2022) [facility] History of Past illness Narrative* Problem Noted Date Resolved Date Mobility impaired 06/22/2018 06/19/2021 Polyarthritis 06/22/2018 06/19/2021 Cellulitis of buttock, right 11/02/2012 Family history of colon cancer 06/30/2012 0 05/27/2018 Screening for colon cancer 06/30/201205/27 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 documented as of this encounter (statuses as of 09/08/2022) [facility] History of Past illness Narrative* Problem Noted Date Resolved Date Mobility impaired 06/22/2018 06/19/2021 Polyarthritis 06/22/2018 06/19/2021 Cellulitis of buttock, right 11/02/2012 Family history of colon cancer 06/30/2012 0 05/27/2018 Screening for colon cancer 06/30/201205/27 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 documented as of this encounter (statuses as of 09/08/2022) [facility] History of Past illness Narrative* Problem Noted Date Resolved Date Mobility impaired 06/22/2018 06/19/2021 Polyarthritis 06/22/2018 06/19/2021 Cellulitis of buttock, right 11/02/2012 Family history of colon cancer 06/30/2012 0 05/27/2018 Screening for colon cancer 06/30/201205/27 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 documented as of this encounter (statuses as of 09/09/2022) [facility] History of Past illness Narrative* Problem Noted Date Resolved Date Mobility impaired 06/22/2018 06/19/2021 Polyarthritis 06/22/2018 06/19/2021 Cellulitis of buttock, right 11/02/2012 Family history of colon cancer 06/30/2012 0 05/27/2018 Screening for colon cancer 06/30/201205/27 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 documented as of this encounter (statuses as of 09/14/2022) [facility] History of Past illness Narrative* Problem Noted Date Resolved Date Mobility impaired 06/22/2018 06/19/2021 Polyarthritis 06/22/2018 06/19/2021 Cellulitis of buttock, right 11/02/2012 Family history of colon cancer 06/30/2012 0 05/27/2018 Screening for colon cancer 06/30/201205/27 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 documented as of this encounter (statuses as of 09/30/2022) [facility] History of Past illness Narrative* Problem Noted Date Resolved Date Mobility impaired 06/22/2018 06/19/2021 Polyarthritis 06/22/2018 06/19/2021 Cellulitis of buttock, right 11/02/2012 Family history of colon cancer 06/30/2012 0 05/27/2018 Screening for colon cancer 06/30/201205/27 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 documented as of this encounter (statuses as of 11/02/2022) [facility] History of Past illness Narrative* Problem Noted Date Resolved Date Mobility impaired 06/22/2018 06/19/2021 Polyarthritis 06/22/2018 06/19/2021 Cellulitis of buttock, right 11/02/2012 Family history of colon cancer 06/30/2012 0 05/27/2018 Screening for colon cancer 06/30/201205/27 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 documented as of this encounter (statuses as of 11/05/2022) [address]25-2018 History of Past illness Narrative* Problem Noted Date Resolved Date Mobility impaired 06/22/2018 06/19/2021 Polyarthritis 06/22/2018 06/19/2021 Cellulitis of buttock, right 11/02/2012 Family history of colon cancer 06/30/2012 0 05/27/2018 Screening for colon cancer 06/30/201205/27 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 documented as of this encounter (statuses as of 11/09/2022) [address]25-2018 History of Past illness Narrative* Problem Noted Date Resolved Date Mobility impaired 06/22/2018 06/19/2021 Polyarthritis 06/22/2018 06/19/2021 Cellulitis of buttock, right 11/02/2012 Family history of colon cancer 06/30/2012 0 05/27/2018 Screening for colon cancer 06/30/201205/27 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 documented as of this encounter (statuses as of 12/08/2022) [facility] History of Past illness Narrative* Problem Noted Date Resolved Date Mobility impaired 06/22/2018 06/19/2021 Polyarthritis 06/22/2018 06/19/2021 Cellulitis of buttock, right 11/02/2012 Family history of colon cancer 06/30/2012 0 05/27/2018 Screening for colon cancer 06/30/201205/27 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 documented as of this encounter (statuses as of 12/21/2022) [facility] History of Past illness Narrative* Problem Noted Date Resolved Date Mobility impaired 06/22/2018 06/19/2021 Polyarthritis 06/22/2018 06/19/2021 Cellulitis of buttock, right 11/02/2012 Family history of colon cancer 06/30/2012 0 05/27/2018 Screening for colon cancer 06/30/201205/27 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 documented as of this encounter (statuses as of 12/31/2022) [facility] History of Past illness Narrative* Problem Noted Date Resolved Date Mobility impaired 06/22/2018 06/19/2021 Polyarthritis 06/22/2018 06/19/2021 Cellulitis of buttock, right 11/02/2012 Family history of colon cancer 06/30/2012 0 05/27/2018 Screening for colon cancer 06/30/201205/27 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 documented as of this encounter (statuses as of 01/17/2023) [facility] History of Past illness Narrative* Problem Noted Date Resolved Date Mobility impaired 06/22/2018 06/19/2021 Polyarthritis 06/22/2018 06/19/2021 Cellulitis of buttock, right 11/02/2012 Family history of colon cancer 06/30/2012 0 05/27/2018 Screening for colon cancer 06/30/201205/27 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 documented as of this encounter (statuses as of 01/27/2023) [facility] History of Past illness Narrative* Problem Noted Date Resolved Date Mobility impaired 06/22/2018 06/19/2021 Polyarthritis 06/22/2018 06/19/2021 Cellulitis of buttock, right 11/02/2012 Family history of colon cancer 06/30/2012 0 05/27/2018 Screening for colon cancer 06/30/201205/27 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 documented as of this encounter (statuses as of 02/03/2023) [address]25-2018 History of Past illness Narrative* Problem Noted Date Resolved Date Mobility impaired 06/22/2018 06/19/2021 Polyarthritis 06/22/2018 06/19/2021 Cellulitis of buttock, right 11/02/2012 Family history of colon cancer 06/30/2012 0 05/27/2018 Screening for colon cancer 06/30/201205/27 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 documented as of this encounter (statuses as of 02/09/2023) [address]25-2018 History of Past illness Narrative* Problem Noted Date Resolved Date Mobility impaired 06/22/2018 06/19/2021 Polyarthritis 06/22/2018 06/19/2021 Cellulitis of buttock, right 11/02/2012 Family history of colon cancer 06/30/2012 0 05/27/2018 Screening for colon cancer 06/30/201205/27 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 documented as of this encounter (statuses as of 02/17/2023) [address]25-2018 History of Past illness Narrative* Problem Noted Date Resolved Date Mobility impaired 06/22/2018 06/19/2021 Polyarthritis 06/22/2018 06/19/2021 Cellulitis of buttock, right 11/02/2012 Family history of colon cancer 06/30/2012 0 05/27/2018 Screening for colon cancer 06/30/201205/27 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 documented as of this encounter (statuses as of 03/15/2023) [facility]2018 History of Past illness Narrative* Problem Noted Date Resolved Date Mobility impaired 06/22/2018 06/19/2021 Polyarthritis 06/22/2018 06/19/2021 Cellulitis of buttock, right 11/02/2012 Family history of colon cancer 06/30/2012 0 05/27/2018 Screening for colon cancer 06/30/201205/27 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 documented as of this encounter (statuses as of 03/22/2023) [facility] History of Past illness Narrative* Problem Noted Date Resolved Date Mobility impaired 06/22/2018 06/19/2021 Polyarthritis 06/22/2018 06/19/2021 Cellulitis of buttock, right 11/02/2012 Family history of colon cancer 06/30/2012 0 05/27/2018 Screening for colon cancer 06/30/201205/27 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 documented as of this encounter (statuses as of 04/06/2023) [facility] History of Past illness Narrative* Problem Noted Date Resolved Date Mobility impaired 06/22/2018 06/19/2021 Polyarthritis 06/22/2018 06/19/2021 Cellulitis of buttock, right 11/02/2012 Family history of colon cancer 06/30/2012 0 05/27/2018 Screening for colon cancer 06/30/201205/27 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 documented as of this encounter (statuses as of 05/03/2023) [facility] History of Past illness Narrative* Problem Noted Date Resolved Date Mobility impaired 06/22/2018 06/19/2021 Polyarthritis 06/22/2018 06/19/2021 Cellulitis of buttock, right 11/02/2012 Family history of colon cancer 06/30/2012 0 05/27/2018 Screening for colon cancer 06/30/201205/27 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 documented as of this encounter (statuses as of 06/03/2023) [facility]2018 History of Past illness Narrative* Problem Noted Date Diagnosed Date Resolved Date Mobility impaired 06/22/2018 06/19/2021 Polyarthritis 06/22/2018 06/19/2021 Cellulitis of buttock, right 11/02/2012 05/27/2018 Family history of colon cancer 06/30/2012 05/27/2018 Screening for colon cancer 06/30/2012 0 05/27/2018 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 07/09/2008 08/10/2016 Monoclonal paraproteinemia 06/19/2008 0 07/05/2013 documented as of this encounter (statuses as of 06/15/2023) [facility] History of Past illness Narrative* Problem Noted Date Diagnosed Date Resolved Date Mobility impaired 06/22/2018 06/19/2021 Polyarthritis 06/22/2018 06/19/2021 Cellulitis of buttock, right 11/02/2012 05/27/2018 Family history of colon cancer 06/30/2012 05/27/2018 Screening for colon cancer 06/30/2012 0 05/27/2018 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 07/09/2008 08/10/2016 Monoclonal paraproteinemia 06/19/2008 0 07/05/2013 documented as of this encounter (statuses as of 06/23/2023) [facility] History of Past illness Narrative* Problem Noted Date Diagnosed Date Resolved Date Mobility impaired 06/22/2018 06/19/2021 Polyarthritis 06/22/2018 06/19/2021 Cellulitis of buttock, right 11/02/2012 05/27/2018 Family history of colon cancer 06/30/2012 05/27/2018 Screening for colon cancer 06/30/2012 0 05/27/2018 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 07/09/2008 08/10/2016 Monoclonal paraproteinemia 06/19/2008 0 07/05/2013 documented as of this encounter (statuses as of 07/01/2023) [facility] History of Past illness Narrative* Problem Noted Date Diagnosed Date Resolved Date Mobility impaired 06/22/2018 06/19/2021 Polyarthritis 06/22/2018 06/19/2021 Cellulitis of buttock, right 11/02/2012 05/27/2018 Family history of colon cancer 06/30/2012 05/27/2018 Screening for colon cancer 06/30/2012 0 05/27/2018 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 07/09/2008 08/10/2016 Monoclonal paraproteinemia 06/19/2008 0 07/05/2013 documented as of this encounter (statuses as of 07/13/2023) [facility] History of Past illness Narrative* Problem Noted Date Diagnosed Date Resolved Date Mobility impaired 06/22/2018 06/19/2021 Polyarthritis 06/22/2018 06/19/2021 Cellulitis of buttock, right 11/02/2012 05/27/2018 Family history of colon cancer 06/30/2012 05/27/2018 Screening for colon cancer 06/30/2012 0 05/27/2018 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 07/09/2008 08/10/2016 Monoclonal paraproteinemia 06/19/2008 0 07/05/2013 documented as of this encounter (statuses as of 08/06/2023) [facility] History of Past illness Narrative* Problem Noted Date Diagnosed Date Resolved Date Mobility impaired 06/22/2018 06/19/2021 Polyarthritis 06/22/2018 06/19/2021 Cellulitis of buttock, right 11/02/2012 05/27/2018 Family history of colon cancer 06/30/2012 05/27/2018 Screening for colon cancer 06/30/2012 0 05/27/2018 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 07/09/2008 08/10/2016 Monoclonal paraproteinemia 06/19/2008 0 07/05/2013 documented as of this encounter (statuses as of 08/16/2023) [facility] History of Past illness Narrative* Problem Noted Date Diagnosed Date Resolved Date Mobility impaired 06/22/2018 06/19/2021 Polyarthritis 06/22/2018 06/19/2021 Cellulitis of buttock, right 11/02/2012 05/27/2018 Family history of colon cancer 06/30/2012 05/27/2018 Screening for colon cancer 06/30/2012 0 05/27/2018 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 07/09/2008 08/10/2016 Monoclonal paraproteinemia 06/19/2008 0 07/05/2013 documented as of this encounter (statuses as of 08/18/2023) [facility] History of Past illness Narrative* Problem Noted Date Diagnosed Date Resolved Date Mobility impaired 06/22/2018 06/19/2021 Polyarthritis 06/22/2018 06/19/2021 Cellulitis of buttock, right 11/02/2012 05/27/2018 Family history of colon cancer 06/30/2012 05/27/2018 Screening for colon cancer 06/30/2012 0 05/27/2018 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 07/09/2008 08/10/2016 Monoclonal paraproteinemia 06/19/2008 0 07/05/2013 documented as of this encounter (statuses as of 08/28/2023) [facility] History of Past illness Narrative* Problem Noted Date Diagnosed Date Resolved Date Mobility impaired 06/22/2018 06/19/2021 Polyarthritis 06/22/2018 06/19/2021 Cellulitis of buttock, right 11/02/2012 05/27/2018 Family history of colon cancer 06/30/2012 05/27/2018 Screening for colon cancer 06/30/2012 0 05/27/2018 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 07/09/2008 08/10/2016 Monoclonal paraproteinemia 06/19/2008 0 07/05/2013 documented as of this encounter (statuses as of 09/07/2023) [facility] History of Past illness Narrative* Problem Noted Date Diagnosed Date Resolved Date Mobility impaired 06/22/2018 06/19/2021 Polyarthritis 06/22/2018 06/19/2021 Cellulitis of buttock, right 11/02/2012 05/27/2018 Family history of colon cancer 06/30/2012 05/27/2018 Screening for colon cancer 06/30/2012 0 05/27/2018 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 07/09/2008 08/10/2016 Monoclonal paraproteinemia 06/19/2008 0 07/05/2013 documented as of this encounter (statuses as of 09/22/2023) [facility] History of Past illness Narrative* Problem Noted Date Diagnosed Date Resolved Date Mobility impaired 06/22/2018 06/19/2021 Polyarthritis 06/22/2018 06/19/2021 Cellulitis of buttock, right 11/02/2012 05/27/2018 Family history of colon cancer 06/30/2012 05/27/2018 Screening for colon cancer 06/30/2012 0 05/27/2018 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 07/09/2008 08/10/2016 Monoclonal paraproteinemia 06/19/2008 0 07/05/2013 documented as of this encounter (statuses as of 10/02/2023) [address]25-2018 History of Past illness Narrative* Problem Noted Date Diagnosed Date Resolved Date Mobility impaired 06/22/2018 06/19/2021 Polyarthritis 06/22/2018 06/19/2021 Cellulitis of buttock, right 11/02/2012 05/27/2018 Family history of colon cancer 06/30/2012 05/27/2018 Screening for colon cancer 06/30/2012 0 05/27/2018 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 07/09/2008 08/10/2016 Monoclonal paraproteinemia 06/19/2008 0 07/05/2013 documented as of this encounter (statuses as of 10/05/2023) [facility] History of Past illness Narrative* Problem Noted Date Diagnosed Date Resolved Date Mobility impaired 06/22/2018 06/19/2021 Polyarthritis 06/22/2018 06/19/2021 Cellulitis of buttock, right 11/02/2012 05/27/2018 Family history of colon cancer 06/30/2012 05/27/2018 Screening for colon cancer 06/30/2012 0 05/27/2018 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 07/09/2008 08/10/2016 Monoclonal paraproteinemia 06/19/2008 0 07/05/2013 documented as of this encounter (statuses as of 10/06/2023) [facility] History of Past illness Narrative* Problem Noted Date Diagnosed Date Resolved Date Mobility impaired 06/22/2018 06/19/2021 Polyarthritis 06/22/2018 06/19/2021 Cellulitis of buttock, right 11/02/2012 05/27/2018 Family history of colon cancer 06/30/2012 05/27/2018 Screening for colon cancer 06/30/2012 0 05/27/2018 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 07/09/2008 08/10/2016 Monoclonal paraproteinemia 06/19/2008 0 07/05/2013 documented as of this encounter (statuses as of 10/09/2023) [facility] History of Past illness Narrative* Problem Noted Date Diagnosed Date Resolved Date Mobility impaired 06/22/2018 06/19/2021 Polyarthritis 06/22/2018 06/19/2021 Cellulitis of buttock, right 11/02/2012 05/27/2018 Family history of colon cancer 06/30/2012 05/27/2018 Screening for colon cancer 06/30/2012 0 05/27/2018 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 07/09/2008 08/10/2016 Monoclonal paraproteinemia 06/19/2008 0 07/05/2013 documented as of this encounter (statuses as of 10/26/2023) [facility] History of Past illness Narrative* Problem Noted Date Diagnosed Date Resolved Date Mobility impaired 06/22/2018 06/19/2021 Polyarthritis 06/22/2018 06/19/2021 Cellulitis of buttock, right 11/02/2012 05/27/2018 Family history of colon cancer 06/30/2012 05/27/2018 Screening for colon cancer 06/30/2012 0 05/27/2018 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 07/09/2008 08/10/2016 Monoclonal paraproteinemia 06/19/2008 0 07/05/2013 documented as of this encounter (statuses as of 11/02/2023) [facility] History of Past illness Narrative* Problem Noted Date Diagnosed Date Resolved Date Mobility impaired 06/22/2018 06/19/2021 Polyarthritis 06/22/2018 06/19/2021 Cellulitis of buttock, right 11/02/2012 05/27/2018 Family history of colon cancer 06/30/2012 05/27/2018 Screening for colon cancer 06/30/2012 0 05/27/2018 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 07/09/2008 08/10/2016 Monoclonal paraproteinemia 06/19/2008 0 07/05/2013 documented as of this encounter (statuses as of 01/03/2024) [facility] History of Past illness Narrative* Problem Noted Date Diagnosed Date Resolved Date Mobility impaired 06/22/2018 06/19/2021 Polyarthritis 06/22/2018 06/19/2021 Cellulitis of buttock, right 11/02/2012 05/27/2018 Family history of colon cancer 06/30/2012 05/27/2018 Screening for colon cancer 06/30/2012 0 05/27/2018 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 07/09/2008 08/10/2016 Monoclonal paraproteinemia 06/19/2008 0 07/05/2013 documented as of this encounter (statuses as of 01/04/2024) [facility] History of Past illness Narrative* Problem Noted Date Diagnosed Date Resolved Date Mobility impaired 06/22/2018 06/19/2021 Polyarthritis 06/22/2018 06/19/2021 Cellulitis of buttock, right 11/02/2012 05/27/2018 Family history of colon cancer 06/30/2012 05/27/2018 Screening for colon cancer 06/30/2012 0 05/27/2018 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 07/09/2008 08/10/2016 Monoclonal paraproteinemia 06/19/2008 0 07/05/2013 documented as of this encounter (statuses as of 01/13/2024) [facility] History of Past illness Narrative* Problem Noted Date Diagnosed Date Resolved Date Mobility impaired 06/22/2018 06/19/2021 Polyarthritis 06/22/2018 06/19/2021 Cellulitis of buttock, right 11/02/2012 05/27/2018 Family history of colon cancer 06/30/2012 05/27/2018 Screening for colon cancer 06/30/2012 0 05/27/2018 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 07/09/2008 08/10/2016 Monoclonal paraproteinemia 06/19/2008 0 07/05/2013 documented as of this encounter (statuses as of 01/13/2024) [address]25-2018 History of Past illness Narrative* Problem Noted Date Diagnosed Date Resolved Date Mobility impaired 06/22/2018 06/19/2021 Polyarthritis 06/22/2018 06/19/2021 Cellulitis of buttock, right 11/02/2012 05/27/2018 Family history of colon cancer 06/30/2012 05/27/2018 Screening for colon cancer 06/30/2012 0 05/27/2018 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 07/09/2008 08/10/2016 Monoclonal paraproteinemia 06/19/2008 0 07/05/2013 documented as of this encounter (statuses as of 01/17/2024) [facility] note* Diagnosis Deep vein thrombosis (DVT) of distal vein of lower extremity, unspecified chronicity, unspecified laterality (HCC)- Primary [facility] encounter [facility] Diagnosis Deep vein thrombosis (DVT) of distal vein of lower extremity, unspecified chronicity, unspecified laterality (HCC)- [facility] Diagnosis Deep vein thrombosis (DVT) of distal vein of lower extremity, unspecified chronicity, unspecified laterality (HCC)- [facility] Diagnosis Rectal bleeding- Primary Hemorrhage of rectum and anus [facility] Diagnosis Deep vein thrombosis (DVT) of distal vein of lower extremity, unspecified chronicity, unspecified laterality (HCC)- Primary documented in this [facility] Diagnosis Deep vein thrombosis (DVT) of distal vein of lower extremity, unspecified chronicity, unspecified laterality (HCC)- Primary [facility] this [facility] Diagnosis Encounter for screening for osteoporosis Special screening for osteoporosis Other specified disorders of bone density and structure, other site documented [facility] this [facility]* Diagnosis Screening breast examination Breast screening, unspecified [facility] this [facility]* Diagnosis Candidiasis of anus- Primary Other candidiasis of other specified sites Thrombosed hemorrhoids Unspecified thrombosed hemorrhoids [facility]* Diagnosis Deep vein thrombosis (DVT) of distal vein of lower extremity, unspecified chronicity, unspecified laterality (HCC)- Primary [facility]* Diagnosis Deep vein thrombosis (DVT) of distal vein of lower extremity, unspecified chronicity, unspecified laterality (HCC)- Primary [facility] Diagnosis Cervicalgia- Primary PMR (polymyalgia rheumatica) ([facility]) Polymyalgia rheumatica Macroglobulinemia (HCC) Macroglobulinemia Elevated blood sugar Other abnormal glucose Hyperlipidemia, mixed Mixed hyperlipidemia [facility] Diagnosis Deep vein thrombosis (DVT) of distal vein of lower extremity, unspecified chronicity, unspecified laterality (HCC) documented [facility] this [facility]* Diagnosis Deep vein thrombosis (DVT) of distal vein of lower extremity, unspecified chronicity, unspecified laterality (HCC)- Primary [facility] this [facility]* Diagnosis Deep vein thrombosis (DVT) of distal vein of lower extremity, unspecified chronicity, unspecified laterality (HCC)- Primary [facility]* Diagnosis PMR (polymyalgia rheumatica) ([facility])- Primary Polymyalgia rheumatica 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 Macroglobulinemia ([facility]) Macroglobulinemia Osteopenia, senile Disorder of bone and cartilage, unspecified Disorder of bone and cartilage Disorder of bone and cartilage, unspecified Hx of steroid therapy Personal history of systemic steroid therapy Elevated blood sugar Other abnormal glucose Deep vein thrombosis (DVT) of distal vein of lower extremity, unspecified chronicity, unspecified laterality (HCC) long term care phlebotomist current use of anticoagulant therapy Long-term (current) use of anticoagulants Polyarthritis Unspecified polyarthropathy or polyarthritis, site unspecified Mobility impaired Other ill-defined conditions documented [facility] this [facility]* Diagnosis Encounter for screening mammogram for malignant neoplasm of breast- Primary Other screening [facility] Diagnosis Encounter for screening mammogram for malignant neoplasm of breast Other screening mammogram [facility] Diagnosis Thrombosed hemorrhoids Unspecified thrombosed hemorrhoids Candidiasis of anus Other candidiasis of other specified sites [facility] Diagnosis Rash- Primary Rash and other nonspecific skin eruption [facility] Diagnosis Itching in the vaginal area- Primary Pruritus of genital organs Candidiasis of female genitalia Candidiasis of vulva and vagina [facility] Diagnosis Deep vein thrombosis (DVT) of distal vein of lower extremity, unspecified chronicity, unspecified laterality (HCC)- Primary [facility] this [facility]* Diagnosis Deep vein thrombosis (DVT) of distal vein of lower extremity, unspecified chronicity, unspecified laterality (HCC)- Primary [facility] this [facility]* Diagnosis Skin irritation- Primary Unspecified disorder of skin and subcutaneous tissue Bruit of right carotid artery Heart murmur Undiagnosed cardiac murmurs Elevated blood sugar Other abnormal glucose Chronic anticoagulation Long-term (current) use of anticoagulants Primary hypertension Unspecified essential hypertension Hyperlipidemia, mixed Mixed hyperlipidemia documented in this [facility]* Diagnosis Carotid bruit, unspecified laterality- Primary Fibromuscular dysplasia (HCC) Other specified disorders of arteries and arterioles documented [facility] this [facility]* Diagnosis Aortic stenosis, moderate- Primary Aortic valve disorders documented in this encounter [facility] note* Diagnosis Aortic stenosis, moderate- Primary Aortic valve disorders Primary hypertension Unspecified essential hypertension documented in this encounter [facility] for referral (narrative)* Diagnostic Procedure Only (Routine) - Closed Specialty Diagnoses / Procedures Referred By Simone orona Referred To Contact [facility] Diagnoses Screening breast examination Procedures AUGUSTINE SCREENING SCREENING MAMMOGRAPHY BI 2-VIEW BREAST INC Leilani Mae PA-C [address] [place] [address] [place] [address] Referral ID Status Reason Start Date Expiration Date V isits Requested Visits Authorized [id number] Closed Auto-Generate d Referral 07/20/2022 08/19/2023 1 1 [facility] for referral (narrative)* Diagnostic Procedure Only (Routine) - Authorized Specialty Diagnoses / Procedures Referred By Simone orona Referred To Contact [facility] Diagnoses Encounter for screening mammogram for malignant neoplasm of breast Procedures AUGUSTINE SCREENING SCREENING MAMMOGRAPHY BI 2-VIEW BREAST INC Leilani Mae PA-C [address] [place] [address] [facility] [place] [address] Referral ID Status Reason Start Date Expiration Date Visits Requested Visits Authorized [id number] Authorized Auto-Generat ed Referral 08/17/2023 09/15/2024 1 1 [facility] for referral (narrative)* Diagnostic Procedure Only (Routine) - Closed Specialty Diagnoses / Procedures Referred By Contac t Referred To Contact [facility] Diagnoses Encounter for screening mammogram for malignant neoplasm of breast Procedures AUGUSTINE SCREENING SCREENING MAMMOGRAPHY BI 2-VIEW BREAST INC CAD Leilani Ferguson PA-C [address] [place] [address] [facility] [address] [place] [address] Referral ID Status Reason Start Date Expiration Date V isits Requested Visits Authorized [id number] Closed Auto-Generate d Referral 08/17/2023 09/15/2024 1 1 [facility] for referral (narrative)* Outpatient Procedure (Routine) - Authorized Specialty Diagnoses / Procedures Referred By Contac t [facility] Diagnoses Bruit of right carotid artery Procedures US CAROTID ARTERIES [facility] DUPLEX SCAN EXTRACRANIAL ART COMPL BI STUDY Morena Urbina, PATENT EXAMINER.AUTOMATIC VULCANIZING OPERATOR [address] [place] [address] [facility] [place] [address] [place] [address] Referral ID Status Reason Start Date Expiration Date Visits Requested Visits Authorized [id number] Authorized Auto-Generat ed Referral 01/03/2024 01/02/2025 1 1 * Outpatient Procedure (Routine) - Authorized Specialty Diagnoses / Procedures Referred By Contac t [facility] Diagnoses Heart murmur Procedures ECHO ECHO TTHRC R-T 2D W/WOM-MODE COMPL SPEC&COLR D Morena Urbina, PATENT EXAMINER.AUTOMATIC VULCANIZING OPERATOR [address] [place] [address] [facility] [address] [place] [address] Referral ID Status Reason Start Date Expiration Date Visits Requested Visits Authorized [id number] Authorized Auto-Generat ed Referral 01/03/2024 01/02/2025 1 1 [facility] for referral (narrative)* Outpatient Procedure (Routine) - Pending Review Specialty Diagnoses / Procedures Referred By Contac t Referred To Contact [facility] Diagnoses Aortic stenosis, moderate Aortic valve disorder Procedures ECHO ECHO TTHRC R-T 2D W/WOM-MODE COMPL SPEC&COLR D Timothy Palmer MD [address], [address] [place] [address] [address] Referral ID Status Reason Start Date Expiration Date Visits Requested Visits Authorized [id number] Pending Review Auto-Generat ed Referral 01/17/2024 01/16/2025 1 1 * Outpatient Procedure (Routine) - Pending Review Specialty Diagnoses / Procedures Referred By Contac t Referred To Contact [facility] Diagnoses Aortic stenosis, moderate Procedures ECG COMPLETE ECG ROUTINE ECG W/LEAST 12 LDS W/I&R Timothy Palmer MD [address], [address] [place] [address] [address] Referral ID Status Reason Start Date Expiration Date Visits Requested Visits Authorized [id number] Pending Review Auto-Generat ed Referral 01/17/2024 01/16/2025 1 1 [facility] for visit Narrative* Diagnostic Procedure Only (Routine) - Closed Specialty Diagnoses / Procedures Referred By Contac t Referred To Contact [facility] Diagnoses Screening breast examination Procedures AUGUSTINE SCREENING SCREENING MAMMOGRAPHY BI 2-VIEW BREAST INC CAD Leilani Ferguson PA-C [address] [place] [address] [facility] [address] [place] [address] Referral ID Status Reason Start Date Expiration Date V isits Requested Visits Authorized [id number] Closed Auto-Generate d Referral 07/20/2022 08/19/2023 1 1 [facility] Diagnostic Procedure Only (Routine) - Closed Specialty Diagnoses / Procedures Referred By Simone t Referred To Contact [facility] Diagnoses Encounter for screening mammogram for malignant neoplasm of breast Procedures AUGUSTINE SCREENING SCREENING MAMMOGRAPHY BI 2-VIEW BREAST INC CAD Leilani Ferguson PA-C [address] [place] [address] [facility] [address] [place] [address] Referral ID Status Reason Start Date Expiration Date V isits Requested Visits Authorized [id number] Closed Auto-Generate d Referral 08/17/2023 09/15/2024 1 1 [facility] Summary Purpose Family History No Family History Records FoundNo Family History Records Found Advance Directives No Advanced Directives Records FoundDocuments on File Type Date Recorded Patient Real Estate Clerk Expl anation Advance Directive(s) 01/15/2016 9:26 AM Documents on File Type Date Recorded Patient Real Estate Clerk Expl anation Advance Directive(s) 01/15/2016 9:26 AM Reason for Referral Specialty Diagnoses / Procedures Referred By Simone orona Referred To Contact [facility] Diagnoses Carotid bruit, unspecified laterality Fibromuscular dysplasia (HCC) Procedures CONSULT TO VASCULAR SURGERY OFFICE/OUTPATIENT [facility] MDM 60 MINUTES Damaris Fierro MD [address] [place] [address] Referral ID Status Reason Start Date Expiration Date Visits Requested Visits Authorized [id number] Authorized PCP Requested Referral 01/13/2024 01/12/2025 1 1 Specialty Diagnoses / Procedures Referred By Johnnyac t Referred To Contact Cardiology Diagnoses Aortic stenosis, moderate Procedures CONSULT TO CARDIOLOGY OFFICE/OUTPATIENT [facility] MDM 60 MINUTES Damaris Fierro MD [address] [place] [address] Referral ID Status Reason Start Date Expiration Date Visits Requested Visits Authorized [id number] Authorized PCP Requested Referral 01/13/2024 01/12/2025 1 1 Additional Source Comments INFORMATION SOURCE (unrecogn ized section and content) DATE CREATED AUTHOR AUTHOR'S FREDDIE ATION 01/18/2024 [facility] Source Comments (unrecognize d section and content) In the event this informatio n is protected by the Federal Confidentiality of Alcohol and Drug Abuse Patient Records regulations: The Federal rules restrict any use of the information to criminally investigate or prosecute any alcohol or drug abuse patient.[facility] event this information is protected by the Federal Confidentiality of Alcohol and Drug Abuse Patient Records regulations: The Federal rules restrict any use of the information to criminally investigate or prosecute any alcohol or drug abuse patient.[facility] the event this information is protected by the Federal Confidentiality of Alcohol and Drug Abuse Patient Records regulations: The Federal rules restrict any use of the information to criminally investigate or prosecute any alcohol or drug abuse patient.[facility] the event this information is protected by the Federal Confidentiality of Alcohol and Drug Abuse Patient Records regulations: The Federal rules restrict any use of the information to criminally investigate or prosecute any alcohol or drug abuse patient.[facility] the event this information is protected by the Federal Confidentiality of Alcohol and Drug Abuse Patient Records regulations: The Federal rules restrict any use of the information to criminally investigate or prosecute any alcohol or drug abuse patient.[facility] the event this information is protected by the Federal Confidentiality of Alcohol and Drug Abuse Patient Records regulations: The Federal rules restrict any use of the information to criminally investigate or prosecute any alcohol or drug abuse patient.[facility] the event this information is protected by the Federal Confidentiality of Alcohol and Drug Abuse Patient Records regulations: The Federal rules restrict any use of the information to criminally investigate or prosecute any alcohol or drug abuse patient.[facility] the event this information is protected by the Federal Confidentiality of Alcohol and Drug Abuse Patient Records regulations: The Federal rules restrict any use of the information to criminally investigate or prosecute any alcohol or drug abuse patient.[facility] the event this information is protected by the Federal Confidentiality of Alcohol and Drug Abuse Patient Records regulations: The Federal rules restrict any use of the information to criminally investigate or prosecute any alcohol or drug abuse patient.[facility] the event this information is protected by the Federal Confidentiality of Alcohol and Drug Abuse Patient Records regulations: The Federal rules restrict any use of the information to criminally investigate or prosecute any alcohol or drug abuse patient.[facility] the event this information is protected by the Federal Confidentiality of Alcohol and Drug Abuse Patient Records regulations: The Federal rules restrict any use of the information to criminally investigate or prosecute any alcohol or drug abuse patient.[facility] the event this information is protected by the Federal Confidentiality of Alcohol and Drug Abuse Patient Records regulations: The Federal rules restrict any use of the information to criminally investigate or prosecute any alcohol or drug abuse patient.[facility] the event this information is protected by the Federal Confidentiality of Alcohol and Drug Abuse Patient Records regulations: The Federal rules restrict any use of the information to criminally investigate or prosecute any alcohol or drug abuse patient.[facility] the event this information is protected by the Federal Confidentiality of Alcohol and Drug Abuse Patient Records regulations: The Federal rules restrict any use of the information to criminally investigate or prosecute any alcohol or drug abuse patient.[facility] the event this information is protected by the Federal Confidentiality of Alcohol and Drug Abuse Patient Records regulations: The Federal rules restrict any use of the information to criminally investigate or prosecute any alcohol or drug abuse patient.[facility] the event this information is protected by the Federal Confidentiality of Alcohol and Drug Abuse Patient Records regulations: The Federal rules restrict any use of the information to criminally investigate or prosecute any alcohol or drug abuse patient.[facility] the event this information is protected by the Federal Confidentiality of Alcohol and Drug Abuse Patient Records regulations: The Federal rules restrict any use of the information to criminally investigate or prosecute any alcohol or drug abuse patient.[facility] the event this information is protected by the Federal Confidentiality of Alcohol and Drug Abuse Patient Records regulations: The Federal rules restrict any use of the information to criminally investigate or prosecute any alcohol or drug abuse patient.[facility] the event this information is protected by the Federal Confidentiality of Alcohol and Drug Abuse Patient Records regulations: The Federal rules restrict any use of the information to criminally investigate or prosecute any alcohol or drug abuse patient.[facility] the event this information is protected by the Federal Confidentiality of Alcohol and Drug Abuse Patient Records regulations: The Federal rules restrict any use of the information to criminally investigate or prosecute any alcohol or drug abuse patient.[facility] the event this information is protected by the Federal Confidentiality of Alcohol and Drug Abuse Patient Records regulations: The Federal rules restrict any use of the information to criminally investigate or prosecute any alcohol or drug abuse patient.[facility] the event this information is protected by the Federal Confidentiality of Alcohol and Drug Abuse Patient Records regulations: The Federal rules restrict any use of the information to criminally investigate or prosecute any alcohol or drug abuse patient.[facility] the event this information is protected by the Federal Confidentiality of Alcohol and Drug Abuse Patient Records regulations: The Federal rules restrict any use of the information to criminally investigate or prosecute any alcohol or drug abuse patient.[facility] the event this information is protected by the Federal Confidentiality of Alcohol and Drug Abuse Patient Records regulations: The Federal rules restrict any use of the information to criminally investigate or prosecute any alcohol or drug abuse patient.[facility] the event this information is protected by the Federal Confidentiality of Alcohol and Drug Abuse Patient Records regulations: The Federal rules restrict any use of the information to criminally investigate or prosecute any alcohol or drug abuse patient.[facility] the event this information is protected by the Federal Confidentiality of Alcohol and Drug Abuse Patient Records regulations: The Federal rules restrict any use of the information to criminally investigate or prosecute any alcohol or drug abuse patient.[facility] the event this information is protected by the Federal Confidentiality of Alcohol and Drug Abuse Patient Records regulations: The Federal rules restrict any use of the information to criminally investigate or prosecute any alcohol or drug abuse patient.[facility] the event this information is protected by the Federal Confidentiality of Alcohol and Drug Abuse Patient Records regulations: The Federal rules restrict any use of the information to criminally investigate or prosecute any alcohol or drug abuse patient.[facility] the event this information is protected by the Federal Confidentiality of Alcohol and Drug Abuse Patient Records regulations: The Federal rules restrict any use of the information to criminally investigate or prosecute any alcohol or drug abuse patient.[facility] the event this information is protected by the Federal Confidentiality of Alcohol and Drug Abuse Patient Records regulations: The Federal rules restrict any use of the information to criminally investigate or prosecute any alcohol or drug abuse patient.[facility] the event this information is protected by the Federal Confidentiality of Alcohol and Drug Abuse Patient Records regulations: The Federal rules restrict any use of the information to criminally investigate or prosecute any alcohol or drug abuse patient.[facility]In the event this information is protected by the Federal Confidentiality of Alcohol and Drug Abuse Patient Records regulations: The Federal rules restrict any use of the information to criminally investigate or prosecute any alcohol or drug abuse patient.[facility]In the event this information is protected by the Federal Confidentiality of Alcohol and Drug Abuse Patient Records regulations: The Federal rules restrict any use of the information to criminally investigate or prosecute any alcohol or drug abuse patient.[facility] the event this information is protected by the Federal Confidentiality of Alcohol and Drug Abuse Patient Records regulations: The Federal rules restrict any use of the information to criminally investigate or prosecute any alcohol or drug abuse patient.[facility]In the event this information is protected by the Federal Confidentiality of Alcohol and Drug Abuse Patient Records regulations: The Federal rules restrict any use of the information to criminally investigate or prosecute any alcohol or drug abuse patient.[facility]In the event this information is protected by the Federal Confidentiality of Alcohol and Drug Abuse Patient Records regulations: The Federal rules restrict any use of the information to criminally investigate or prosecute any alcohol or drug abuse patient.[facility]In the event this information is protected by the Federal Confidentiality of Alcohol and Drug Abuse Patient Records regulations: The Federal rules restrict any use of the information to criminally investigate or prosecute any alcohol or drug abuse patient.[facility]In the event this information is protected by the Federal Confidentiality of Alcohol and Drug Abuse Patient Records regulations: The Federal rules restrict any use of the information to criminally investigate or prosecute any alcohol or drug abuse patient.[facility]In the event this information is protected by the Federal Confidentiality of Alcohol and Drug Abuse Patient Records regulations: The Federal rules restrict any use of the information to criminally investigate or prosecute any alcohol or drug abuse patient.[facility]In the event this information is protected by the Federal Confidentiality of Alcohol and Drug Abuse Patient Records regulations: The Federal rules restrict any use of the information to criminally investigate or prosecute any alcohol or drug abuse patient.[facility]In the event this information is protected by the Federal Confidentiality of Alcohol and Drug Abuse Patient Records regulations: The Federal rules restrict any use of the information to criminally investigate or prosecute any alcohol or drug abuse patient.[facility]In the event this information is protected by the Federal Confidentiality of Alcohol and Drug Abuse Patient Records regulations: The Federal rules restrict any use of the information to criminally investigate or prosecute any alcohol or drug abuse patient.[facility] HospitalIn the event this information is protected by the Federal Confidentiality of Alcohol and Drug Abuse Patient Records regulations: The Federal rules restrict any use of the information to criminally investigate or prosecute any alcohol or drug abuse patient.[facility] HospitalIn the event this information is protected by the Federal Confidentiality of Alcohol and Drug Abuse Patient Records regulations: The Federal rules restrict any use of the information to criminally investigate or prosecute any alcohol or drug abuse patient.[facility] the event this information is protected by the Federal Confidentiality of Alcohol and Drug Abuse Patient Records regulations: The Federal rules restrict any use of the information to criminally investigate or prosecute any alcohol or drug abuse patient.[facility]In the event this information is protected by the Federal Confidentiality of Alcohol and Drug Abuse Patient Records regulations: The Federal rules restrict any use of the information to criminally investigate or prosecute any alcohol or drug abuse patient.[facility]In the event this information is protected by the Federal Confidentiality of Alcohol and Drug Abuse Patient Records regulations: The Federal rules restrict any use of the information to criminally investigate or prosecute any alcohol or drug abuse patient.[facility] HospitalIn the event this information is protected by the Federal Confidentiality of Alcohol and Drug Abuse Patient Records regulations: The Federal rules restrict any use of the information to criminally investigate or prosecute any alcohol or drug abuse patient.[facility] HospitalIn the event this information is protected by the Federal Confidentiality of Alcohol and Drug Abuse Patient Records regulations: The Federal rules restrict any use of the information to criminally investigate or prosecute any alcohol or drug abuse patient.[facility] HospitalIn the event this information is protected by the Federal Confidentiality of Alcohol and Drug Abuse Patient Records regulations: The Federal rules restrict any use of the information to criminally investigate or prosecute any alcohol or drug abuse patient.[facility] Teams (unrecognized sec tion and content) Car Repair Supervisor Relationship Specialty Start Date End Date Leilani Ferguson PA-C [address] [place] [address] PCP - General Family Practice 12/19/20 Car Repair Supervisor Relationship Specialty Start Date End Date Leilani Ferguson PA-C [address] [place] [address] PCP - General Family Practice 12/19/20 Car Repair Supervisor Relationship Specialty Start Date End Date Leilani Ferguson PA-C [address] [place] [address] PCP - General Family Practice 12/19/20 Car Repair Supervisor Relationship Specialty Start Date End Date Leilani Ferguson PA-C [address] [place] [address] PCP - General Family Practice 12/19/20 Car Repair Supervisor Relationship Specialty Start Date End Date Leilani Ferguson PA-C [address] [place] [address] PCP - General Family Practice 12/19/20 Car Repair Supervisor Relationship Specialty Start Date End Date Leilani Ferguson PA-C [address] [place] [address] PCP - General Family Medicine 12/19/20 Car Repair Supervisor Relationship Specialty Start Date End Date Leilani Ferguson PA-C [address] [place] [address] PCP - General Family Medicine 12/19/20 Car Repair Supervisor Relationship Specialty Start Date End Date Leilani Ferguson PA-C [address] [place] [address] PCP - General Family Medicine 12/19/20 Car Repair Supervisor Relationship Specialty Start Date End Date Leilani Ferguson PA-C [address] [place] [address] PCP - General Family Medicine 12/19/20 Car Repair Supervisor Relationship Specialty Start Date End Date Leilani Ferguson PA-C [address] [facility] [place] [address] PCP - General Family Medicine 12/19/20 Car Repair Supervisor Relationship Specialty Start Date End Date Leilani Ferguson PA-C [address] [facility] [place] [address] PCP - General Family Medicine 12/19/20 Car Repair Supervisor Relationship Specialty Start Date End Date Leilani Ferguson PA-C [address] [facility] [place] [address] PCP - General Family Medicine 12/19/20 Car Repair Supervisor Relationship Specialty Start Date End Date Leilani Ferguson PA-C [address] [facility] [place] [address] PCP - General Family Medicine 12/19/20 Car Repair Supervisor Relationship Specialty Start Date End Date Leilani Ferguson PA-C [address] [facility] [place] [address] PCP - General Family Medicine 12/19/20 Car Repair Supervisor Relationship Specialty Start Date End Date Leilani Ferguson PA-C [address] [facility] [place] [address] PCP - General Family Medicine 12/19/20 Car Repair Supervisor Relationship Specialty Start Date End Date Leilani Ferguson PA-C [address] [facility] [place] [address] PCP - General Family Medicine 12/19/20 Car Repair Supervisor Relationship Specialty Start Date End Date Leilani Ferguson PA-C [address] [place] [address] PCP - General Family Medicine 12/19/20 Car Repair Supervisor Relationship Specialty Start Date End Date Leilani Ferguson PA-C [address] [place] [address] PCP - General Family Medicine 12/19/20 Car Repair Supervisor Relationship Specialty Start Date End Date Leilani Ferguson PA-C [address] [place] [address] PCP - General Family Medicine 12/19/20 Car Repair Supervisor Relationship Specialty Start Date End Date Leilani Ferguson PA-C [address] [place] [address] PCP - General Family Medicine 12/19/20 Car Repair Supervisor Relationship Specialty Start Date End Date Leilani Ferguson PA-C [address] [place] [address] PCP - General Family Medicine 12/19/20 Car Repair Supervisor Relationship Specialty Start Date End Date Leilani Ferguson PA-C [address] [place] [address] PCP - General Family Medicine 12/19/20 Car Repair Supervisor Relationship Specialty Start Date End Date Leilani Ferguson PA-C [address] [place] [address] PCP - General Family Medicine 12/19/20 Car Repair Supervisor Relationship Specialty Start Date End Date Leilani Ferguson PA-C [address] [place] [address] PCP - General Family Medicine 12/19/20 Car Repair Supervisor Relationship Specialty Start Date End Date Leilani Ferguson PA-C [address] [place] [address] PCP - General Family Medicine 12/19/20 Car Repair Supervisor Relationship Specialty Start Date End Date Leilani Ferguson PA-C [address] [place] [address] PCP - General Family Medicine 12/19/20 Car Repair Supervisor Relationship Specialty Start Date End Date Leilani Ferguson PA-C [address] [place] [address] PCP - General Family Medicine 12/19/20 Car Repair Supervisor Relationship Specialty Start Date End Date Leilani Ferguson PA-C [address] [place] [address] PCP - General Family Medicine 12/19/20 Car Repair Supervisor Relationship Specialty Start Date End Date Leilani Ferguson PA-C [address] [place] [address] PCP - General Family Medicine 12/19/20 Car Repair Supervisor Relationship Specialty Start Date End Date Leilani Ferguson PA-C [address] [place] [address] PCP - General Family Medicine 12/19/20 Car Repair Supervisor Relationship Specialty Start Date End Date Leilani Ferguson PA-C [address] [place] [address] PCP - General Family Medicine 12/19/20 Car Repair Supervisor Relationship Specialty Start Date End Date Leilani Ferguson PA-C [address] [place], [place] [id number] PCP - General Family Medicine 12/19/20 Car Repair Supervisor Relationship Specialty Start Date End Date Leilani Ferguson PA-C [address] [place], [place] [id number] PCP - General Family Medicine 12/19/20 Reason for Visit (unrecogniz ed section and content) Reason Comments Orders protime Reason Comments Rectal Problem Hemorrhoids, has bee n treating with OTC meds for the last 3 weeks. No active bleeding. Reason Comments Pain Back of neck x5days Reason Onset Date Comments Refill Request 01/16/2023 Reason Comments 6 Month Exam Reason Comments Results Reason Comments Derm Problem yeast infection, all over, extreme itching x 3 weeks Reason Comments Acute Visit Yeast Infection, hav ing pain, burning and itching x 2 months, vaginal and rectal area, has taken Clotrimazole, Doxycycline and Prednisone Reason Comments 6 Month Exam C/o rectal/vaginal y east infection Reason Comments Results Reason Comments Consult Aortic stenosis Specialty Diagnoses / Procedures Referred By Simone orona Referred To Contact Cardiology Diagnoses Aortic stenosis, moderate Procedures CONSULT TO CARDIOLOGY OFFICE/OUTPATIENT [facility] 60 MINUTES Damaris Fierro MD [address] [place] [address] Referral ID Status Reason Start Date Expiration Date V isits Requested Visits Authorized [id number] Closed PCP Requested Referral 01/13/2024 01/12/2025 1 1 FOR RECORDS PERTAINING TO PATIENTS WHO ARE OR HAVE BEEN ENROLLED IN A CHEMICAL DEPENDENCY/SUBSTANCEABUSE PROGRAM, SOME INFORMATION MAY BE OMITTED. This clinical summary was aggregated from multiple sources. Caution should be exercised in using it in the provision of clinical care. This summary normalizes information from multiple sources, and as a consequence, information in this document may materially change the coding, format and clinical context of patient data. In addition, data may be omitted in some cases. CLINICAL DECISIONS SHOULD BE BASED ON THE PRIMARY CLINICAL RECORDS. [employer] provides no warranty or guarantee of the accuracy or completeness of information in this document.
[2024-01-22 10:21] VITALS: BP 146/75; O2SAT 98
[2024-01-22 10:47] LABS: Reflex Troponin-HS? (from REC) Y
[2024-01-22 11:19] LABS: Troponin-I HS 9 pg/mL (3.0-54.0)
--- NOTE | 2024-01-22 11:38 | EDS_ITS ---
HPI History of Present Illness Chief Complaint: Weakness Narrative Narrative: 78-year-old female was recently started on antihypertensive medications presents with generalized weakness, lightheadedness, and not feeling well this morning. She denies any chest pain or shortness of breath. No swelling of her legs, no fevers or chills, no cough, no dysuria or hematuria. No other symptoms. She states that she does not feel right, and feels off . No headaches. Of note, she states that she thought maybe it was the new medication that they started her on so she did not take it yesterday. She did take it this morning, however. [facility] Medical History HTN (hypertension) Home Medications calcium carbonate 600 mg calcium (1,500 mg) tablet (Caltrate 600) 600 mg PO DAILY 10/25/13 [History Last Taken Unknown] cholecalciferol (vitamin D3) 25 mcg (1,000 unit) capsule (Vitamin D3) 1,000 unit PO DAILY 10/25/13 [History Last Taken Unknown] awwgnktk-qeg-euvrh acid 0.4 mg-lycopene 300 mcg-lutein 250 mcg tablet (Centrum Silver) 1 ea PO DAILY 10/25/13 [History Last Taken Unknown] magnesium oxide 500 mg capsule 500 mg PO DAILY 09/10/17 [History Last Taken Unknown] folic acid 1 mg tablet 1 mg PO DAILY 08/03/19 [History Last Taken Unknown] methotrexate sodium 2.5 mg tablet 10 mg PO QWEEK 08/03/19 [History Last Taken Unknown] prednisone 5 mg tablet 5 mg PO DAILY 08/03/19 [History Last Taken Unknown] promethazine 25 mg tablet 12.5 mg (1/2 x 25 mg) PO Q6H PRN PRN Nausea #10 tabs 08/03/19 [Rx Last Taken Unknown] warfarin 5 mg tablet 10 mg PO SUTUTHSA 08/03/19 [History Last Taken Unknown] warfarin 7.5 mg tablet 7.5 mg PO MOWEFR 08/03/19 [History Last Taken Unknown] ondansetron HCl 4 mg tablet 4 mg PO Q6H PRN nausea and vomiting #15 tabs 11/01/22 [Rx Last Taken Unknown] Allergy/AdvReac Type Severity Reaction Status Date / Time Penicillins Allergy Swelling Verified 01/22/24 08:19 Social History household members: none Smoking Status: Never smoker ROS ROS ED ROS Narrative Constitutional: No fever, no chills. Generalized weakness. Positive malaise. HEENT: No sore throat. No neck pain. No loss of vision. No rhinorrhea. Cardiovascular: No chest pain. No palpitations. No pedal edema. Respiratory: No cough, no shortness of breath. Abdominal: No abdominal pain. No nausea. No vomiting. Genitourinary: No dysuria. No hematuria. Musculoskeletal: No myalgias. No arthralgias. Neurologic: No headaches. No dizziness. Positive lightheadedness. Skin: No rash. No change in color. Psychiatric: No depression. No anxiety. EXAM Physical Exam Narrative Exam Narrative: Afebrile. Vital signs noted. HEENT: Normocephalic. Atraumatic. PERRL, EOMI. Neck soft and supple. No point tenderness or step off. Cardiovascular: Regular rate and rhythm. No murmurs, rubs, or gallops appreciated. Respiratory: No tachypnea. Lungs clear to auscultation bilaterally. Gastrointestinal: Abdomen soft, nontender, with normoactive bowel sounds. No rebound or guarding. Neurological: Awake. Alert. Nonfocal, nonlateralizing. Skin: No rash. Normal color. No pallor. Musculoskeletal: No pedal edema. Full range of motion extremities. Const Vital Signs: 01/22/24 08:19 01/22/24 08:32 01/22/24 08:58 Temperature 97.4 F L 97.4 F L Temperature Source Temporal Temporal Pulse Rate 101 H 77 Respiratory Rate 16 19 H Respiratory Effort Normal Non-Labored Respiratory Pattern Normal Blood Pressure 195/95 H 157/81 H Blood Pressure Mean 128 106 Pulse Ox 99 97 Oxygen Delivery Method Room Air Room Air 01/22/24 09:01 01/22/24 10:21 Temperature Temperature Source Pulse Rate Respiratory Rate Respiratory Effort Respiratory Pattern Blood Pressure 147/67 H 146/75 H Blood Pressure Mean 93 98 Pulse Ox 98 Oxygen Delivery Method Room Air MDM MDM MDM Narrative Medical decision making narrative: Upon review of her vital signs, her initial blood pressure was 195/95. I did order hydralazine for hypertensive urgency, but her blood pressure did come down on its own to the 140s systolic. I am unsure as to the cause of her lightheadedness and generalized weakness, but it may be in relation to her blood pressure. I will also look for occult urinary tract infection or electrolyte imbalance/dehydration. I reviewed her laboratory work and she has normal white count 9.7, hemoglobin is normal at 14.5, platelet count normal at 301. Electrolyte panel was obtained and reviewed she has a BUN of 19 with a cr eatinine of 0.99, glucose elevated at 203 but she has a normal anion gap of 5 so I have no concern for diabetic ketoacidosis. LFTs are grossly unremarkable. Initial high-sensitivity troponin is 6 with repeat at 2 hours being 9. I feel she has been ruled out for acute coronary syndrome and cardiac ischemia through biomarkers. EKG was obtained and interpreted by myself independently as normal sinus rhythm at 72 bpm without ectopy or acute ST changes. No STEMI. Urinalysis is negative for infection. I do not feel antibiotics are indicated. Chest x-ray 1 view interpreted by myself shows no evidence of pneumonia or pneumothorax. I reviewed the radiology report which confirms my independent interpretation. Upon repeat examination, she states she feels markedly improved. I saw her blood pressure reading on the monitor of 127 systolic. I do feel that her symptoms are most likely related to elevated blood pressure. She was told to continue her lisinopril 10 mg daily at the same time every day. She states she has follow-up with her primary care provider in 4 days. I suggested that she invest in a blood pressure cuff/monitor so that she can check her blood pressure regularly, and I emphasized the importance of taking her blood pressure medications. I do not feel she requires observation and that she can be discharged to follow-up with her primary care provider. Return inst ructions were reviewed. Disposition is discharged home in stable condition. History & Record Review Discussion w/independent historian: Patient and Family (Son) Lab Data Attestation: I reviewed the patient's lab results. Labs: Laboratory Results - last 24 hr 01/22/24 01/22/24 01/22/24 08:33 09:04 10:52 WBC 9.7 RBC 4.84 Hgb 14.5 Hct 45.2 MCV 93.4 MCH 30.0 MCHC 32.1 RDW Std Deviation 49.9 H RDW Coeff of Vahid 14.4 Plt Count 301 MPV 9.9 Immature Gran % (Auto) 0.400 Neut % (Auto) 70.2 H Lymph % (Auto) 16.9 L [place] % (Auto) 11.3 H Eos % (Auto) 0.4 Baso % (Auto) 0.8 Absolute Neuts (auto) 6.8 Absolute Lymphs (auto) 1.63 Nucleated RBC % 0 Sodium 136 Potassium 4.2 Chloride 103 Carbon Dioxide 28.0 Anion Gap 5 BUN 19 H Creatinine 0.99 Estim Creat Clear Calc 43.14 Est GFR (MDRD) Af Amer 69 Est GFR (MDRD) Non-Af 57 L BUN/Creatinine Ratio 19.2 Glucose 203 H Calcium 10.0 Total Bilirubin 0.60 AST 28 ALT 29 Alkaline Phosphatase 100 Troponin I High Sens 6 9 Total Protein 8.3 H Albumin 3.8 Globulin 4.5 H Albumin/Globulin Ratio 0.8 L Urine Color Yellow Urine Clarity Sl. Cloudy Urine pH 6.0 Ur Specific [place] 1.020 Urine Protein 15 H Urine Glucose (UA) Normal Urine Ketones 5 H Urine Occult Blood 50 H Urine Nitrite Negative Urine Bilirubin Negative Urine Urobilinogen Normal Ur Leukocyte Esterase Negative Urine RBC 0-5 SEEN Urine WBC 0 SEEN Ur Squamous Epith Cells 0 SEEN Urine Bacteria 1+ Urine Mucus 0 SEEN Radiography Diagnostic Testing: Clinical Impression(s) from Imaging Studies Chest X-Ray 01/22/24 08:35 IMPRESSION: Stable chest with no acute superimposed finding. Electronically Signed: Mahamed Tate MD at 9:26 EST Reading Location ID and State: [facility] , Service support , Discharge Plan Triage Chief Complaint: Weakness ED Provider: Michael Barnhart Dx/Rx/DC Orders Clinical Impression: Episodic lightheadedness, Generalized weakness, Hypertension Instructions: ED Hypertension, Established, ED Weakness (Uncertain Cause) Prescriptions: No Action calcium carbonate [Caltrate 600] 600 MG tablet 600 mg PO DAILY cholecalciferol (vitamin D3) [Vitamin D3] 1,000 UNIT capsule 1,000 unit PO DAILY [id number]-lutein [Centrum Silver] 1 EACH tablet 1 ea PO DAILY magnesium oxide 500 MG capsule 500 mg PO DAILY warfarin 7.5 MG tablet 7.5 mg PO MOWEFR methotrexate sodium 2.5 tablet 10 mg PO QWEEK warfarin 5 MG tablet 10 mg PO SUTUTHSA prednisone 5 tablet 5 mg PO DAILY folic acid 1 MG tablet 1 mg PO DAILY Patient Comments: TAKE 1 TABLET BY MOUTH ONCE DAILY FOR 90 DAYS promethazine 25 MG tablet 12.5 mg PO Q6H PRN PRN (Reason: Nausea) Qty: 10 0RF ondansetron HCl 4 mg tablet 4 mg PO Q6H PRN (Reason: nausea and vomiting) Qty: 15 0RF Primary Care Provider: Emmett Fierro Referrals: Emmett Fierro MD [Primary Care Provider] - 3-5 Days Activity Restrictions/Additional Instructions: Take your lisinopril 10 mg daily at the same time. Make sure you are taking your blood pressure medication. You may want to invest in a blood pressure cuff. Follow-up with your primary care provider as scheduled. Return with new or worsening symptoms. Disposition Disposition: Home, Self Care
[2024-01-22 11:40] VITALS: BP 132/70; PULSE 64; RESP 16; TEMP 36.7; O2SAT 98
== END 2024-01-22 11:50 | disposition home or self-care (01) ==
PROVIDERS: Emergency Provider Emergency Medicine; PCP Family Medicine; Visit Provider Emergency Medicine
DX: I16.0 Hypertensive urgency (principal); R73.9 Hyperglycemia, unspecified; I10 Essential (primary) hypertension; Z11.52 Encounter for screening for COVID-19; Z79.899 Other long term (current) drug therapy; Z79.01 Long term (current) use of anticoagulants
CPT/HCPCS: 71045; 80053; 81001; 84484; 85025; 87631; 93005; 99284; A4216

== ENCOUNTER 2024-04-06 14:16 | Emergency (ER) | payer MEDICARE, SELFPAY ==
[2024-04-06 14:16] VITALS: BP 187/82; BP 212/95; PULSE 64; PULSE 68; RESP 14; TEMP 36.1; O2SAT 99; BMI 21.6
--- NOTE | 2024-04-06 14:59 | EX.ED.DYSGE1 ---
HPI <SALLY Campuzano - Last Filed: 04/06/24 16:23> History of Present Illness Chief Complaint: Headache Narrative Narrative: Patient presenting today due to nausea and vomiting that she has had since yesterday. She reports that she got her sixth COVID-vaccine on Wednesday, Wednesday evening she began to feel chilled and rundown. She has had multiple episodes of vomiting over the past 2 days. She reports that she has had intermittent headaches as well which is typical when she has vomiting. She reports that the headaches have been gradual in onset and she no longer has one at this time. She denies any fevers, chills, abdominal pain, diarrhea, and hematemesis. [facility] <SALLY Campuzano - Last Filed: 04/06/24 16:23> [facility] Medical History HTN (hypertension) Home Medications calcium carbonate (Caltrate 600) 600 mg PO DAILY 10/25/13 [History Last Taken Unknown] cholecalciferol (vitamin D3) 25 mcg (1,000 unit) capsule (Vitamin D3) 1,000 unit PO DAILY 10/25/13 [History Last Taken Unknown] fcqnlxep-seq-tpeqq acid 0.4 mg-lycopene 300 mcg-lutein 250 mcg tablet (Centrum Silver) 1 ea PO DAILY 10/25/13 [History Last Taken Unknown] magnesium oxide 500 mg capsule 500 mg PO DAILY 09/10/17 [History Last Taken Unknown] folic acid 1 mg tablet 1 mg PO DAILY 08/03/19 [History Last Taken Unknown] methotrexate sodium 2.5 mg tablet 10 mg PO QWEEK 08/03/19 [History Last Taken Unknown] prednisone 5 mg tablet 5 mg PO DAILY 08/03/19 [History Last Taken Unknown] promethazine 25 mg tablet 12.5 mg (1/2 x 25 mg) PO Q6H PRN PRN Nausea #10 tabs 08/03/19 [Rx Last Taken Unknown] warfarin 5 mg tablet 10 mg PO SUTUTHSA 08/03/19 [History Last Taken Unknown] warfarin 7.5 mg tablet 7.5 mg PO MOWEFR 08/03/19 [History Last Taken Unknown] ondansetron HCl 4 mg tablet 4 mg PO Q6H PRN nausea and vomiting #15 tabs 11/01/22 [Rx Last Taken Unknown] metoclopramide HCl 10 mg tablet (Reglan) 10 mg PO Q6H PRN nausea and vomiting #10 tabs 04/06/24 [Rx Last Taken Unknown] Allergy/AdvReac Type Severity Reaction Status Date / Time Penicillins Allergy Swelling Verified 01/22/24 08:19 Social History household members: none Smoking Status: Never smoker ROS <SALLY Campuzano - Last Filed: 04/06/24 16:23> ROS ED Constitutional Constitutional ED: Denies chills or fever(s) Cardiovascular Cardiovascular: Denies chest pain Respiratory/Chest Respiratory/Chest: Denies cough or dyspnea Gastrointestinal Gastrointestinal: Reports nausea and vomiting; Denies abdominal pain, coffee ground emesis, constipation or diarrhea Genitourinary Genitourinary ED: Denies dysuria, hematuria or urinary urgency Musculoskeletal Musculoskeletal: Denies arthralgias or myalgias Integumentary Denies rash Neurologic Neurologic: Reports headache(s); Denies weakness EXAM <SALLY Campuzano - Last Filed: 04/06/24 16:23> Physical Exam Const Vital Signs: 04/06/24 14:16 04/06/24 14:16 Temperature 96.9 F L Temperature Source Temporal Pulse Rate 64 68 Respiratory Rate 14 14 Blood Pressure 212/95 H 187/82 H Blood Pressure Mean 134 117 Pulse Ox 99 99 Oxygen Delivery Method Room Air Room Air Positive well nourished, well developed and no apparent distress General Appearance ED: well developed HEENT Reports normocephalic and head/scalp atraumatic Mouth ED: Yes moist mucous membranes normal Eyes PERRL and EOMs intact bilaterally Neck full ROM and supple Chest Wall inspection of chest normal Resp normal respiratory effort and clear to auscultation bilaterally Cardio regular rate and regular rhythm GI soft to palpation, non-tender, non-distended and no masses Back/Spine normal ROM and normal to inspection Extremity normal to inspection and full ROM Neuro oriented x3, CN's II-XII intact bilaterally, moves all extremities, no focal motor deficits and no sensory deficits noted Sensorium / Orientation: awake and alert Psych mental status grossly normal and thought process normal Skin no rashes or lesions noted and no wounds <Dr. Trevor Cooper DO - Last Filed: 04/06/24 16:34> Physical Exam Const Vital Signs: 04/06/24 14:16 04/06/24 14:16 Temperature 96.9 F L Temperature Source Temporal Pulse Rate 64 68 Respiratory Rate 14 14 Blood Pressure 212/95 H 187/82 H Blood Pressure Mean 134 117 Pulse Ox 99 99 Oxygen Delivery Method Room Air Room Air [facility] <SALLY Campuzano - Last Filed: 04/06/24 16:23> [facility] Narrative Medical decision making narrative: Patient presenting due to nausea and vomiting she has had since yesterday. She reports that she has been here for similar symptoms in the past and usually receives a liter of IV fluids and Zofran with relief of her symptoms. The triage report noted headaches, patient reports that that is not what brought her in today and she does not have a headache at this time. On reexamination she reports improvement of her symptoms. She has a sodium of 128, chloride 96. She is drinking oral fluids. I will write for antiemetics for home, return instructions given, patient discharged home in stable condition. Lab Data Attestation: I reviewed the patient's lab results. Lab results narrative: Sodium 128, chloride 96 Labs: Laboratory Results - last 24 hr 04/06/24 14:45 WBC 9.1 RBC 4.17 L Hgb 12.8 Hct 39.0 MCV 93.5 MCH 30.7 MCHC 32.8 RDW Std Deviation 48.9 H RDW Coeff of Vahid 14.2 Plt Count 257 MPV 9.7 Immature Gran % (Auto) 0.700 Neut % (Auto) 68.9 Lymph % (Auto) 14.6 L [place] % (Auto) 14.7 H Eos % (Auto) 0.7 Baso % (Auto) 0.4 Absolute Neuts (auto) 6.3 Absolute Lymphs (auto) 1.33 Nucleated RBC % 0 Sodium 128 L Potassium 4.2 Chloride 96 L Carbon Dioxide 26.0 Anion Gap 6 BUN 10 Creatinine 0.65 Estim Creat Clear Calc 55.45 Est GFR (MDRD) Af Amer 113 Est GFR (MDRD) Non-Af 93 BUN/Creatinine Ratio 15.4 Glucose 91 Calcium 9.3 <Dr. Trevor Cooper DO - Last Filed: 04/06/24 16:34> [facility] Narrative Medical decision making narrative: Patient presenting due to nausea and vomiting she has had since yesterday. She reports that she has been here for similar symptoms in the past and usually receives a liter of IV fluids and Zofran with relief of her symptoms. The triage report noted headaches, patient reports that that is not what brought her in today and she does not have a headache at this time. On reexamination she reports improvement of her symptoms. She has a sodium of 128, chloride 96. She is drinking oral fluids. I will write for antiemetics for home, return instructions given, patient discharged home in stable condition. Attending note: Patient seen and evaluated with workday senior associate. I perform my own [id number] evaluation. I agree with the plan of work-up. Increasing nausea post COVID booster vaccination 2 days ago. She states had at 10 AM by 6 PM she had some chills yesterday nausea and vomiting no hematemesis no diarrhea. Last emesis 10 AM today. Son currently present her states she has had reactions to any vaccination has been similar. She used Zofran with no relief. Typically with IV fluids and Zofran in the ED symptoms have improved. He states he gets this yearly. Left arm there is erythema around the vaccination site. No drainage. No indurations or fluctuance. Moist mucosal membranes nontoxic. Abdomen soft. IV was established with labs. She is given IV Zofran with improvement of symptoms. Labs with sodium 128. Slower than her previous. On reevaluation she is clinically feeling better she is tolerant oral fluids. Discussed return precautions with the patient. Prescription updated Zofran. Did present elevated blood pressure however asymptomatic with this. Outpatient follow-up. Lab Data Labs: Laboratory Results - last 24 hr 04/06/24 14:45 WBC 9.1 RBC 4.17 L Hgb 12.8 Hct 39.0 MCV 93.5 MCH 30.7 MCHC 32.8 RDW Std Deviation 48.9 H RDW Coeff of Vahid 14.2 Plt Count 257 MPV 9.7 Immature Gran % (Auto) 0.700 Neut % (Auto) 68.9 Lymph % (Auto) 14.6 L [place] % (Auto) 14.7 H Eos % (Auto) 0.7 Baso % (Auto) 0.4 Absolute Neuts (auto) 6.3 Absolute Lymphs (auto) 1.33 Nucleated RBC % 0 Sodium 128 L Potassium 4.2 Chloride 96 L Carbon Dioxide 26.0 Anion Gap 6 BUN 10 Creatinine 0.65 Estim Creat Clear Calc 55.45 Est GFR (MDRD) Af Amer 113 Est GFR (MDRD) Non-Af 93 BUN/Creatinine Ratio 15.4 Glucose 91 Calcium 9.3 Discharge Plan Triage Chief Complaint: Headache ED Midlevel Provider: Florence Sharp ED Provider: Trevor Cooper Dx/Rx/DC Orders Clinical Impression: Headache, Nausea & vomiting, Acute hyponatremia, Elevated blood pressure reading, Post-vaccination reaction Instructions: ED Hyponatremia, ED Vomiting (Adult) Prescriptions: New metoclopramide HCl [Reglan] 10 mg tablet 10 mg PO Q6H PRN (Reason: nausea and vomiting) Qty: 10 0RF No Action calcium carbonate [Caltrate 600] 600 MG tablet 600 mg PO DAILY cholecalciferol (vitamin D3) [Vitamin D3] 1,000 UNIT capsule 1,000 unit PO DAILY ocwskopb-xfr-TH-lycopen-lutein [Centrum Silver] 1 EACH tablet 1 ea PO DAILY magnesium oxide 500 MG capsule 500 mg PO DAILY warfarin 7.5 MG tablet 7.5 mg PO MOWEFR methotrexate sodium 2.5 tablet 10 mg PO QWEEK warfarin 5 MG tablet 10 mg PO SUTUTHSA prednisone 5 tablet 5 mg PO DAILY folic acid 1 MG tablet 1 mg PO DAILY Patient Comments: TAKE 1 TABLET BY MOUTH ONCE DAILY FOR 90 DAYS promethazine 25 MG tablet 12.5 mg PO Q6H PRN PRN (Reason: Nausea) Qty: 10 0RF ondansetron HCl 4 mg tablet 4 mg PO Q6H PRN (Reason: nausea and vomiting) Qty: 15 0RF Primary Care Provider: Emmett Fierro Referrals: Emmett Fierro MD [Primary Care Provider] - 5-7 Days Activity Restrictions/Additional Instructions: Return for any worsening of your symptoms, follow-up with your PCP. Disposition Disposition: Home, Self Care
[2024-04-06] MEDS: 0.9% Normal Saline (1000mL) 1,000 ML 999 ML IV (15:08)
[2024-04-06] MEDS: Ondansetron 4 MG/2 ML Vial IV (15:08)
[2024-04-06 15:10] LABS: Absolute Lymphocyte Count 1.33 X10^3/uL (0.83-4.51); Absolute Neutrophil Count 6.3 X10^3/uL (2.0-7.7); Basophil# 0.04 X10^3/uL; Basophil% 0.4 % (0-1); Eosinophil# 0.06 X10^3/uL; Eosinophils% 0.7 % (0-5); Hemoglobin 12.8 g/dL (12.0-15.0); Lymphocyte # 1.33 X10^3/ul (0.83-4.51); Lymphocyte % 14.6 % (19-41); Mean Corp Hgb Conc 32.8 g/dL (32-36); Mean Corpuscular Hgb 30.7 pg (27.0-32.0); Mean Corpuscular Volume 93.5 fL (81-99); Mean Platelet Vol. 9.7 fl (6.2-12.0); Monocyte# 1.34 X10^3/uL; Monocyte% 14.7 % (0-10); NRBC Flagged by Analyzer 0 % (0-5); Neutrophil % 68.9 % (47-70); Platelet Count 257 K/mm3 (150-450); RBC Distribution Width CV 14.2 % (11.6-14.6); RBC Distribution Width SD 48.9 fl (35.1-43.9); Red Blood Count 4.17 M/mm3 (4.2-5.4); White Blood Count 9.1 K/mm3 (4.4-11.0)
[2024-04-06 15:27] LABS: Anion Gap 6 (5-15); BUN 10 mg/dL (7-18); BUN/Creat Ratio 15.4 RATIO (10-20); Calcium,Total 9.3 mg/dL (8.5-10.1); Chloride 96 mmol/L (98-107); Creatinine, Serum 0.65 mg/dL (0.55-1.02); EST Glomerular Filtration Rate 93 mL/min (>60); Est Glom Filt Rate - Afr Amer 113 mL/min (>60); Estimated Creatinine Clearance 55.45 ml/min; Glucose 91 mg/dL (74-106); Potassium 4.2 mmol/L (3.5-5.1); Sodium Level 128 mmol/L (136-145)
[2024-04-06 16:16] VITALS: BP 126/72; PULSE 64; RESP 16; O2SAT 99
== END 2024-04-06 16:45 | disposition home or self-care (01) ==
PROVIDERS: Physician Assistant; Emergency Provider Emergency Medicine; PCP Family Medicine; Visit Provider Emergency Medicine
DX: R11.2 Nausea with vomiting, unspecified (principal); G44.40 Drug-induced headache, not elsewhere classified, not intractable; E87.1 Hypo-osmolality and hyponatremia; T50.B95A Adverse effect of other viral vaccines, initial encounter; R03.0 Elevated blood-pressure reading, without diagnosis of hypertension; Z79.01 Long term (current) use of anticoagulants; Z79.899 Other long term (current) drug therapy
CPT/HCPCS: 80048; 85025; 96361; 96374; 99283; J7030; A4216; J2405

== ENCOUNTER → 2024-05-30 | Outpatient (CLI) | payer MEDICARE, SELFPAY ==
--- NOTE | 2024-05-30 16:23 | CT_ITS ---
STUDY: CTA NECK WITH CONTRAST REASON FOR EXAM: Female, 78 years old. carotid FMD RADIATION DOSAGE (If Supplied By Facility): CTDIvol = ( 36.66 ) mGy, DLP = ( 397.29 ) mGycm TECHNIQUE: CT angiography with multi-detector data acquisition was performed from the aortic arch to the skull base following intravenous administration of IV 100mL [id number]-370. MIP images were reconstructed from the axial data set. Post-processing of the angiographic images was performed, with multiplanar reformation and 3D reconstruction. Individualized dose optimization techniques were used for this CT. COMPARISON: None. FINDINGS: AORTIC ARCH: Normal visualized aortic arch. Normal origins of the brachiocephalic, left common carotid, and left subclavian arteries. RIGHT CAROTID ARTERIES: Normal right common carotid artery (CCA). Mild calcific plaquing of the right common carotid bulb. Normal origin of the right internal carotid (ICA) artery without a hemodynamically significant stenosis. Normal visualized cervical portion of the right internal carotid artery. Normal origin of the right external carotid artery (ECA). LEFT CAROTID ARTERIES: Normal left common carotid artery (CCA). Mild calcific plaquing of the left common carotid bulb. Normal origin of the left internal carotid (ICA) artery without a hemodynamically significant stenosis. Normal visualized cervical portion of the left internal carotid artery. Normal origin of the left external carotid artery (ECA). VERTEBRAL ARTERIES: Left vertebral is dominant and normal caliber. Mild diffuse narrowing of the right vertebral likely normal variant CT/CTA Neck W/WO Contrast IMPRESSION: Mild atherosclerotic changes of the carotids without evidence for hemodynamically significant stenosis.. Incidental finding of solid nodule in the right thyroid which can be better assessed with ultrasound Electronically Signed: Reza Quach MD at 19:25 EDT ,
[2024-05-30 17:02] LABS: CREATININE FINGERSTICK < 1.0 mg/dL (0.55-1.02)
== END | disposition home or self-care (01) ==
LOC: CT 16:22
PROVIDERS: PCP Family Medicine; Referring Provider Surgery Trauma Surgery; Visit Provider Surgery Trauma Surgery
DX: Z01.812 Encounter for preprocedural laboratory examination (principal); I10 Essential (primary) hypertension; I65.21 Occlusion and stenosis of right carotid artery; I77.3 Arterial fibromuscular dysplasia
CPT/HCPCS: 70498; Q9967

== ENCOUNTER → 2025-05-07 | Outpatient (CLI) | payer MEDICARE, SELFPAY ==
--- NOTE | 2025-05-07 09:44 | CDU_ITS ---
Reason For Study Reason For Study: Carotid Disease Rt. Velocities/BP Lt. Velocities/BP Prox CCA 93.8/20.1 cm/sec. Prox CCA 98.6/17.6 cm/sec. Mid CCA 74.0/16.8 cm/sec. Mid CCA 87.6/16.3 cm/sec. Dist CCA 75.1/13.5 cm/sec. Dist CCA 72.8/21.2 cm/sec. Prox ICA 51.3/13.5 cm/sec. Prox ICA 57.9/11.6 cm/sec. Mid ICA 132.1/35.3 cm/sec. Mid ICA 126.6/31.6 cm/sec. Dist ICA 90.0/24.3 cm/sec. Dist ICA 79.4/18.7 cm/sec. Rt. ICA/CCA = 1.8. Lt. ICA/CCA = 1.4. Prox ECA 71.8/6.9 cm/sec. Prox ECA 63.6/7.8 cm/sec. Rt. Vert. 54.4/6.5 cm/sec. Lt. Vert. 55.1/11.1 cm/sec. Right Extracranial There is intimal thickening but no significant atherosclerotic plaque noted in the right common carotid artery. There is heterogeneous, irregular atherosclerotic plaque noted in the right internal carotid artery. There is heterogeneous, irregular atherosclerotic plaque noted in the right external carotid artery. Antegrade flow is noted in the right vertebral artery. Left Extracranial There is intimal thickening but no significant atherosclerotic plaque noted in the left common carotid artery. There is heterogeneous, irregular atherosclerotic plaque noted in the left internal carotid artery. There is heterogeneous, irregular atherosclerotic plaque noted in the left external carotid artery. Antegrade flow is noted in the left vertebral artery. Procedure Carotid Duplex 29294. This is a Carotid Duplex examination using B-mode, color flow and specral Doppler. Exam performed in department. VL/Carotid Duplex Ultrasound Interpretation Summary Moderate (50-69%) stenosis right extracranial internal carotid. Moderate (50-69%) stenosis left extracranial internal carotid. Patent and antegrade vertebrals bilaterally. Ordering Physician: Rose Hatch Referring Physician: Rose Hatch Performed By: Anabel Garcia, CHARMAINE
== END | disposition home or self-care (01) ==
LOC: CVS 09:38
PROVIDERS: PCP Family Medicine; Referring Provider Physician Assistant; Visit Provider Physician Assistant
DX: I65.21 Occlusion and stenosis of right carotid artery (principal)
CPT/HCPCS: 93880